=== PATIENT | male | born 1950 | race Caucasian/White ===

== ENCOUNTER 2017-05-01 17:30 | Inpatient (IN) | payer MEDICARE, MEDICAID ==
[~2017-05-01] VITALS: Ht 185.4 cm; Wt 117.9 kg
[2017-05-01 17:43] VITALS: BP 115/71
[2017-05-01] MEDS ORDERED: CHANTIX1 MG PO (17:49)
[2017-05-01] MEDS ORDERED: DUONEB 0.5-3(2.53 ML HHN (17:49)
[2017-05-01] MEDS ORDERED: IBUPROFEN600 MG ORAL (17:49)
[2017-05-01] MEDS ORDERED: Sodium Chloride 500ML 500 ML IV ONE (17:58)
[2017-05-01] MEDS ORDERED: Ipratropium 0.02% Inh Soln 2.5ml UD HHN ONE (18:00)
[2017-05-01] MEDS ORDERED: Solu-MEDROL 125mg Inj IVP ONE (18:00)
[2017-05-01] MEDS ORDERED: Albuterol ud Inhalation HHN ONE (18:00)
[2017-05-01 18:10] LABS: APPEARANCE,URINE CLEAR; KETONES,URINE NEGATIVE (NEGATIVE); LEUKOCYTE ESTERASE ,URINE NEGATIVE (NEGATIVE); NITRITE,URINE NEGATIVE (NEGATIVE); PH,URINE 7 (4.5-8.0); PROTEIN,URINE 2+ (NEGATIVE); UROBILINOGEN,URINE NORMAL MG/DL (0.0-1.0)
[2017-05-01 18:35] LABS: BASOPHILS % (AUTO) 0.7 % (0.0-2.0); EOSINOPHILS % (AUTO) 1.5 % (0.0-3.0); LYMPHOCYTES % (AUTO) 13.9 % (20.0-45.0); MEAN CORPUSCULAR HEMOGLOBIN 33.1 PG (27.0-31.0); MEAN CORPUSCULAR HGB CONC 32.9 G/DL (32.0-36.0); MEAN CORPUSCULAR VOLUME 101 FL (80-99); MONOCYTES % (AUTO) 7.9 % (1.0-10.0); PLATELET COUNT 200 K/UL (150-450); RED BLOOD COUNT 4.73 M/UL (4.70-6.10); WHITE BLOOD COUNT 9.4 K/UL (4.8-10.8)
[2017-05-01 18:40] LABS: ANION GAP 4 mmol/L (5-15); CARBON DIOXIDE 30 MMOL/L (21-32); CHLORIDE 106 MMOL/L (98-107); GLOMERULAR FILTRATION RATE > 60 mL/min (>60); POTASSIUM 4.3 MMOL/L (3.5-5.1); SODIUM 140 MMOL/L (136-145)
[2017-05-01 18:42] LABS: BACTERIA,URINE FEW /HPF; WBC,URINE 0-2 /HPF (0 - 0)
[2017-05-01 18:51] LABS: ALANINE AMINOTRANSFERASE 100 U/L (12-78); ASPARTATE AMINO TRANSFERASE 41 U/L (15-37); CKMB 8.5 NG/ML (0.0-3.6); TOTAL PROTEIN 6.7 G/DL (6.4-8.2)
[2017-05-01] MEDS ORDERED: Piperacillin/Tazobactam 3.375 GM in NS 55 ML IVPB ONE (19:30)
[2017-05-01] MEDS ORDERED: Azithromycin 500 MG in D5W 275 ML IVPB ONE (19:30)
--- NOTE | 2017-05-01 19:51 | Emergency Room Report ---
History of Present Illness General Chief Complaint: General Complaint Source: EMS Present Illness HPI 66-year-old male presents to ED for evaluation. Patient coming from halfway. EMS states that patient is here with increased generalized weakness. Patient states he's been feeling weak but is also complaining of shortness of breath for the last several days. Has history of COPD. Has been noticing increased cough. Cough is dry. Denies chest pain shortness of breath. Denies fevers or chills. No other aggravating relieving factors. Denies any other associated symptoms Allergies: Coded Allergies: Cultivated Oat Pollen (Verified Allergy, Unknown, 05/01/17) IODINE AND IODIDE CONTAINING PRODUC (Verified Allergy, Unknown, 05/01/17) Soy Protein (Verified Allergy, Unknown, 05/01/17) Patient History Past Medical History: HTN, CHF, COPD Pertinent Family History: none Social History: Denies: smoking, alcohol use, drug use Immunizations: UTD Reviewed Nursing Documentation: PMH: Agreed, PSxH: Agreed Nursing Documentation-PMH Hx Cardiac Problems: Yes - CHF Hx Hypertension: Yes Hx COPD: Yes Hx Neurological Problems: Yes - Tremors Review of Systems All Other Systems: negative except mentioned in HPI Physical Exam Vital Signs Date Time Temp Pulse Resp B/P (MAP) Pulse Ox O2 Delivery O2 Flow Rate FiO2 05/01/17 17:33 98.1 100 20 132/90 94 Room Air 05/01/17 18:30 21 Sp02 EP Interpretation: reviewed, normal General Appearance: no apparent distress, alert, GCS 15, non-toxic Head: normocephalic, atraumatic Eyes: bilateral eye normal inspection, bilateral eye PERRL ENT: hearing grossly normal, normal pharynx, no angioedema, normal voice Neck: full range of motion, supple/symm/no masses Respiratory: chest non-tender, normal breath sounds, speaking full sentences, wheezing Cardiovascular #1: regular rate, rhythm, no edema Cardiovascular #2: 2+ carotid (R), 2+ carotid (L), 2+ radial (R), 2+ radial (L) , 2+ dorsalis pedis (R), 2+ dorsalis pedis (L) Gastrointestinal: normal bowel sounds, non tender, soft, non-distended, no guarding, no rebound Rectal: deferred Genitourinary: normal inspection, no CVA tenderness Musculoskeletal: back normal, gait/station normal, normal range of motion, non- tender Neurologic: alert, oriented x3, responsive, motor strength/tone normal, sensory intact, speech normal Psychiatric: judgement/insight normal, memory normal, mood/affect normal, no suicidal/homicidal ideation Reflexes: 3+ bicep (R), 3+ bicep (L), 3+ tricep (R), 3+ tricep (L), 3+ knee (R) , 3+ knee (L) Skin: normal color, no rash, warm/dry, well hydrated Lymphatic: no adenopathy Medical Decision Making Diagnostic Impression: Primary Impression: COPD (chronic obstructive pulmonary disease) Qualified Codes: J44.9 - Chronic obstructive pulmonary disease, unspecified Additional Impression: CHF (congestive heart failure) Qualified Codes: I50.9 - Heart failure, unspecified ER Course Hospital Course 66-year-old M presenting to ED with SOB. h/o COPD Differential diagnoses include: Pneumonia, CHF exacerbation, pneumothorax, fluid overload Clinical course Patient placed on stretcher. On playground monitor with stable vitals. After initial history and physical, I ordered nebulizer treatments. I ordered labs, IV fluids, EKG, chest x-ray, blood cultures, UA. Labs - no leukocytosis noted, hemoglobin/hematocrit stable, electrolytes okay, lactate okay, troponins negative, BNP elevated EKG - NSR, no acute ischemic changes interpreted by me CXR - cardiomegaly. bilateral effusions abx given Case discussed with Dr. Norwood and he agreed to the patient to his service for further care and support I feel this is a highly complex case requiring extensive working including EKG/ Rhythm strip, Xray/CT/US, Blood/urine lab work, repeat exams while in ED, and administration of strong opiates/narcotics for pain control, admission to hospital or close patient follow up. Diagnosis - COPD exacerbation, CHF Patient admitted to telemetry in serious condition Labs Test 05/01/17 18:01 05/01/17 18:05 Urine Color Pale yellow Urine Appearance Clear Urine pH 7 (4.5-8.0) Urine Specific [place] 1.010 (1.005-1.035) Urine Protein 2+ (NEGATIVE) Urine Glucose (UA) Negative (NEGATIVE) Urine Ketones Negative (NEGATIVE) Urine Occult Blood 3+ (NEGATIVE) Urine Nitrite Negative (NEGATIVE) Urine Bilirubin Negative (NEGATIVE) Urine Urobilinogen Normal MG/DL (0.0-1.0) Urine Leukocyte Esterase Negative (NEGATIVE) Urine RBC 2-4 /HPF (0 - 0) Urine WBC 0-2 /HPF (0 - 0) Urine Squamous Epithelial Cells None /LPF (NONE/OCC) Urine Bacteria Few /HPF (NONE) White Blood Count 9.4 K/UL (4.8-10.8) Red Blood Count 4.73 M/UL (4.70-6.10) Hemoglobin 15.7 G/DL (14.2-18.0) Hematocrit 47.6 % (42.0-52.0) Mean Corpuscular Volume 101 FL (80-99) Mean Corpuscular Hemoglobin 33.1 PG (27.0-31.0) Mean Corpuscular Hemoglobin Concent 32.9 G/DL (32.0-36.0) Red Cell Distribution Width 12.0 % (11.6-14.8) Platelet Count 200 K/UL (150-450) Mean Platelet Volume 8.0 FL (6.5-10.1) Neutrophils (%) (Auto) 76.0 % (45.0-75.0) Lymphocytes (%) (Auto) 13.9 % (20.0-45.0) Monocytes (%) (Auto) 7.9 % (1.0-10.0) Eosinophils (%) (Auto) 1.5 % (0.0-3.0) Basophils (%) (Auto) 0.7 % (0.0-2.0) Sodium Level 140 MMOL/L (136-145) Potassium Level 4.3 MMOL/L (3.5-5.1) Chloride Level 106 MMOL/L (98-107) Carbon Dioxide Level 30 MMOL/L (21-32) Anion Gap 4 mmol/L (5-15) Blood Urea Nitrogen 16 mg/dL (7-18) Creatinine 1.0 MG/DL (0.55-1.30) Estimat Glomerular Filtration Rate > 60 mL/min (>60) Glucose Level 94 MG/DL (74-106) Calcium Level 9.0 MG/DL (8.5-10.1) Total Bilirubin 0.7 MG/DL (0.2-1.0) Aspartate Amino Transf (AST/SGOT) 41 U/L (15-37) Alanine Aminotransferase (ALT/SGPT) 100 U/L (12-78) Alkaline Phosphatase 84 U/L (46-116) Total Creatine Kinase 184 U/L (26-308) Creatine Kinase MB 8.5 NG/ML (0.0-3.6) Creatine Kinase MB Relative Index 4.6 Troponin I 0.013 ng/mL (0.000-0.056) Pro-B-Type Natriuretic Peptide 1188 pg/mL (0-125) Total Protein 6.7 G/DL (6.4-8.2) Albumin 3.3 G/DL (3.4-5.0) Globulin 3.4 g/dL Albumin/Globulin Ratio 1.0 (1.0-2.7) EKG Diagnostic Results Rate: normal Rhythm: NSR ST Segments: no acute changes ASA given to the pt in ED: No Rhythm Strip Diag. Results EP Interpretation: yes Rhythm: NSR, no PVC's, no ectopy Chest X-Ray Diagnostic Results Chest X-Ray Diagnostic Results : Chest X-Ray Ordered: Yes # of Views/Limited/Complete: 1 View Indication: Shortness of Breath EP Interpretation: Yes Interpretation: no pneumothorax, no acute cardiopulmonary disease, other - bilateral effusion. atelectasis Impression: Other - chf Electronically Signed by: Electronically signed by Volodymyr Weir MD Last Vital Signs Date Time Temp Pulse Resp B/P (MAP) Pulse Ox O2 Delivery O2 Flow Rate FiO2 05/01/17 18:30 110 18 98 Room Air 21 05/01/17 17:43 97.6 115/71 Status: improved Disposition: ADMITTED INPATIENT Condition: Serious Referrals: KELTON NORWOOD (PCP) VOLODYMYR WEIR M.D. May 01, 2017 19:51
[2017-05-01 21:02] VITALS: BP 107/76
[2017-05-01] MEDS ORDERED: Zosyn 3.375gm inj ONE (21:19)
[2017-05-01] MEDS ORDERED: Azithromycin 500mg Inj IV ONE (21:43)
[2017-05-01 22:00] VITALS: BP 103/75
[2017-05-02] MEDS: Cefepime HCl 1 GM in D5W 55 ML IVPB SCH ×2 (08:04→20:53)
[2017-05-02 08:19] VITALS: BP 111/70
[2017-05-02 11:21] VITALS: BP 104/69
[2017-05-02 15:37] VITALS: BP_SYST 108; BP_SYST 112; BP_DIAS 62; BP_DIAS 65
[2017-05-02 20:00] VITALS: BP 99/72
[2017-05-02] MEDS: Azithromycin 500 MG in D5W 275 ML IV SCH (20:52)
--- NOTE | 2017-05-02 22:18 | History and Physical ---
History of Present Illness General Date patient seen: May 02, 2017 Reason for Hospitalization: General Complaint Present Illness HPI 66 y/o male with hx HTN, COPD, CHF who presented to the ED from SNF for SOB x 3- 4 days. Also reports generalized weakness. Associated symptoms is nonproductive cough. Denies any fever or chills. No abdominal pain, nausea, or vomiting. In the ED, patient had no fever or leukocytosis. However, given his clinical presentation, he was admitted for further care. Allergies: Coded Allergies: ASPIRIN (Verified Allergy, Unknown, 05/02/17) Cultivated Oat Pollen (Verified Allergy, Unknown, 05/01/17) IODINE AND IODIDE CONTAINING PRODUC (Verified Allergy, Unknown, 05/01/17) PENICILLINS (Verified Allergy, Unknown, 05/02/17) Soy Protein (Verified Allergy, Unknown, 05/01/17) Medication History Scheduled Ipratropium/Albuterol Sulfate (DuoNeb 0.5-3(2.5)mg/3ml), 3 ML HHN BID, (Reported ) Scheduled PRN Ibuprofen* (Motrin*), 600 MG ORAL Q12HR PRN for For Pain, (Reported) Discontinued Medications Varenicline Tartrate (Chantix), 1 MG PO BID, (Reported) Discontinued Reason: Pt stopped taking med Patient History History Provided By: Patient Healthcare decision maker Resuscitation status Full Code Advanced Directive on File Past Medical/Surgical History Past Medical/Surgical History: (1) COPD (chronic obstructive pulmonary disease) (2) CHF (congestive heart failure) Review of Systems All Other Systems: negative except mentioned in HPI Physical Exam General Appearance: WD/WN, no apparent distress HEENT: normocephalic, atraumatic Neck: supple Respiratory/Chest: decreased breath sounds Cardiovascular/Chest: normal rate, regular rhythm Abdomen: non tender, soft Extremities: trace edema Neurologic: alert, oriented x 3 Last 24 Hour Vital Signs Date Time Temp Pulse Resp B/P (MAP) Pulse Ox O2 Delivery O2 Flow Rate FiO2 05/02/17 20:00 97.9 91 21 99/72 95 Room Air 05/02/17 16:00 95 05/02/17 15:37 97.6 97 20 108/65 97 Room Air 05/02/17 11:39 94 05/02/17 11:21 97.9 98 20 104/69 96 05/02/17 08:19 97.7 103 20 111/70 95 05/02/17 07:55 100 05/02/17 04:00 89 05/02/17 02:14 97.0 24 103/75 100 Room Air 21 Intake and Output 05/02/17 05/03/17 19:00 07:00 Intake Total 1030 ml Output Total 550 ml Balance 480 ml Intake Oral 920 ml IV Total 110 ml Output Urine Total 550 ml # Voids 1 Height (Feet): 6 Height (Inches): 1.00 Weight (Pounds): 260 Medications Current Medications Medications (Trade) Dose Ordered Sig/Shine Route PRN Reason Start Time Stop Time Status Last Admin Dose Admin Azithromycin 500 mg/Dextrose 275 ml @ 275 mls/hr Q24HRS IV 05/02/17 21:00 05/07/17 21:59 05/02/17 20:52 Cefepime HCl 1 gm/ Dextrose 55 ml @ 110 mls/hr EVERY 12 HOURS IVPB 05/02/17 09:00 05/09/17 08:59 05/02/17 20:53 Assessment/Plan Problem List: (1) HTN (hypertension) ICD Codes: I10 - Essential (primary) hypertension SNOMED: 84288463 (2) COPD (chronic obstructive pulmonary disease) ICD Codes: J44.9 - Chronic obstructive pulmonary disease, unspecified SNOMED: 09893357 Qualifiers: Qualified Codes: J44.9 - Chronic obstructive pulmonary disease, unspecified (3) CHF (congestive heart failure) ICD Codes: I50.9 - Heart failure, unspecified SNOMED: 26605453 Qualifiers: Qualified Codes: I50.9 - Heart failure, unspecified Assessment/Plan empiric abx. neb tx. steroids. lasix. resume home meds. dvt ppx. KELTON NORWOOD May 02, 2017 22:18
[2017-05-02] MEDS ORDERED: Albuterol/Ipratropium 3ml neb HHN PRN (22:30)
[2017-05-03] VITALS (8 sets, daily range): BP systolic 93–118; BP diastolic 46–78
[2017-05-03 09:01] LABS: EOSINOPHILS % (AUTO) 2.7 % (0.0-3.0); LYMPHOCYTES % (AUTO) 20.2 % (20.0-45.0); MEAN CORPUSCULAR HGB CONC 31.3 G/DL (32.0-36.0); MEAN CORPUSCULAR VOLUME 102 FL (80-99); MEAN PLATELET VOLUME 8.5 FL (6.5-10.1); MONOCYTES % (AUTO) 7.8 % (1.0-10.0); NEUTROPHILS % (AUTO) 68.2 % (45.0-75.0); PLATELET COUNT 168 K/UL (150-450); RED BLOOD COUNT 4.45 M/UL (4.70-6.10); WHITE BLOOD COUNT 8.1 K/UL (4.8-10.8)
[2017-05-03 09:27] LABS: ANION GAP 9 mmol/L (5-15); CALCIUM 8.5 MG/DL (8.5-10.1); CARBON DIOXIDE 25 MMOL/L (21-32); CHLORIDE 107 MMOL/L (98-107); GLOMERULAR FILTRATION RATE > 60 mL/min (>60); POTASSIUM 3.8 MMOL/L (3.5-5.1); SODIUM 141 MMOL/L (136-145)
[2017-05-03] MEDS: Cefepime HCl 1 GM in D5W 55 ML IVPB SCH ×2 (09:43→20:35)
[2017-05-03] MEDS ORDERED: Tubing IV Secondary IV ONE (10:56)
[2017-05-03] MEDS ORDERED: NS 500ML ONE (10:56)
--- NOTE | 2017-05-03 12:16 | Nephrology Progress Note ---
Assessment/Plan Problem List: (1) COPD (chronic obstructive pulmonary disease) (2) CHF (congestive heart failure) (3) HTN (hypertension) Plan Continue current treatment plan Continue floridalma treatmant BP stable Cardiac consult pending AM labs Subjective Constitutional: Denies: no symptoms, chills, diaphoresis, fever, malaise, weakness, other HEENT: Denies: no symptoms, eye pain, blurred vision, tearing, double vision, ear pain, ear discharge, nose pain, nose congestion, throat pain, throat swelling, mouth pain, mouth swelling, other Genitourinary: Denies: no symptoms, burning, discharge, frequency, flank pain, hematuria, incontinence, pain, urgency, other Neurologic/Psychiatric: Denies: no symptoms, anxiety, depressed, emotional problems, headache, numbness, paresthesia, pre-existing deficit, seizure, tingling, tremors, weakness, other Subjective Having lunch, upset because he wanted tea in his lunch tray but got coffee, but states that everything else is fine Objective Objective Last 24 Hour Vital Signs Date Time Temp Pulse Resp B/P (MAP) Pulse Ox O2 Delivery O2 Flow Rate FiO2 05/03/17 11:47 97.5 85 18 93/50 95 05/03/17 08:39 97.2 97 18 103/76 96 05/03/17 08:00 96 05/03/17 07:44 102 18 Room Air 21 05/03/17 04:30 74 18 118/78 93 Room Air 05/03/17 04:00 97.0 88 20 100/46 93 Room Air 05/03/17 04:00 94 05/03/17 00:00 101 05/03/17 00:00 97.2 101 20 95/70 95 Room Air 05/02/17 20:00 101 05/02/17 20:00 97.9 91 21 99/72 95 Room Air 05/02/17 16:00 95 05/02/17 15:37 97.6 97 20 108/65 97 Room Air Intake and Output 05/03/17 05/04/17 19:00 07:00 Intake Total 120 ml Balance 120 ml Intake Oral 120 ml Laboratory Tests 05/03/17 08:30: White Blood Count 8.1, Red Blood Count 4.45L, Hemoglobin 14.2, Hematocrit 45.5, Mean Corpuscular Volume 102H, Mean Corpuscular Hemoglobin 32.0H, Mean Corpuscular Hemoglobin Concent 31.3L, Red Cell Distribution Width 12.0, Platelet Count 168, Mean Platelet Volume 8.5, Neutrophils (%) (Auto) 68.2, Lymphocytes (%) (Auto) 20.2, Monocytes (%) (Auto) 7.8, Eosinophils (%) (Auto) 2.7, Basophils (%) (Auto) 1.0, Sodium Level 141, Potassium Level 3.8, Chloride Level 107, Carbon Dioxide Level 25, Anion Gap 9, Blood Urea Nitrogen 17, Creatinine 1.0, Estimat Glomerular Filtration Rate > 60, Glucose Level 120H, Calcium Level 8.5, Pro-B-Type Natriuretic Peptide 661H Height (Feet): 6 Height (Inches): 1.00 Weight (Pounds): 260 General Appearance: no apparent distress, alert EENT: normal ENT inspection Neck: normal alignment, supple Cardiovascular: normal rate, regular rhythm, no JVD Abdomen: non tender, soft, no organomegaly Extremities: non-tender, normal inspection Neurologic: alert, oriented x 3, responsive Lexus Lopez N.P. May 03, 2017 12:15
--- NOTE | 2017-05-03 14:24 | Cardiac Electrophysiology PN ---
Subjective Subjective Cardiology consult dicatted [id number] Objective Last 24 Hour Vital Signs Date Time Temp Pulse Resp B/P (MAP) Pulse Ox O2 Delivery O2 Flow Rate FiO2 05/03/17 11:47 97.5 85 18 93/50 95 05/03/17 08:39 97.2 97 18 103/76 96 05/03/17 08:00 96 05/03/17 07:44 102 18 Room Air 21 05/03/17 04:30 74 18 118/78 93 Room Air 05/03/17 04:00 97.0 88 20 100/46 93 Room Air 05/03/17 04:00 94 05/03/17 00:00 101 05/03/17 00:00 97.2 101 20 95/70 95 Room Air 05/02/17 20:00 101 05/02/17 20:00 97.9 91 21 99/72 95 Room Air 05/02/17 16:00 95 05/02/17 15:37 97.6 97 20 108/65 97 Room Air Intake and Output 05/03/17 05/04/17 19:00 07:00 Intake Total 120 ml Balance 120 ml Intake Oral 120 ml Laboratory Tests Test 05/03/17 08:30 White Blood Count 8.1 K/UL (4.8-10.8) Red Blood Count 4.45 M/UL (4.70-6.10) L Hemoglobin 14.2 G/DL (14.2-18.0) Hematocrit 45.5 % (42.0-52.0) Mean Corpuscular Volume 102 FL (80-99) H Mean Corpuscular Hemoglobin 32.0 PG (27.0-31.0) H Mean Corpuscular Hemoglobin Concent 31.3 G/DL (32.0-36.0) L Red Cell Distribution Width 12.0 % (11.6-14.8) Platelet Count 168 K/UL (150-450) Mean Platelet Volume 8.5 FL (6.5-10.1) Neutrophils (%) (Auto) 68.2 % (45.0-75.0) Lymphocytes (%) (Auto) 20.2 % (20.0-45.0) Monocytes (%) (Auto) 7.8 % (1.0-10.0) Eosinophils (%) (Auto) 2.7 % (0.0-3.0) Basophils (%) (Auto) 1.0 % (0.0-2.0) Sodium Level 141 MMOL/L (136-145) Potassium Level 3.8 MMOL/L (3.5-5.1) Chloride Level 107 MMOL/L (98-107) Carbon Dioxide Level 25 MMOL/L (21-32) Anion Gap 9 mmol/L (5-15) Blood Urea Nitrogen 17 mg/dL (7-18) Creatinine 1.0 MG/DL (0.55-1.30) Estimat Glomerular Filtration Rate > 60 mL/min (>60) Glucose Level 120 MG/DL (74-106) H Calcium Level 8.5 MG/DL (8.5-10.1) Pro-B-Type Natriuretic Peptide 661 pg/mL (0-125) H Microbiology Date/Time Source Procedure Growth Status 05/01/17 18:20 Blood Blood Culture - Preliminary NO GROWTH AFTER 24 HOURS Resulted 05/01/17 18:05 Blood Blood Culture - Preliminary NO GROWTH AFTER 24 HOURS Resulted 05/01/17 18:45 Nasal Nares Influenza Types A,B Antigen (ARLET) - Final Complete 05/01/17 19:20 Rectum VRE Culture - Final NO VANCOMYCIN RESISTANT ENTEROCOCCUS ... Complete ASHOK ROSS May 03, 2017 14:24
[2017-05-03] MEDS: Azithromycin 500 MG in D5W 275 ML IV SCH (21:32)
--- NOTE | 2017-05-03 23:45 | Consultation ---
DATE OF CONSULTATION: 05/03/2017 CARDIOLOGY CONSULTATION REFERRING PHYSICIAN: Willian Heck M.D. REASON FOR CONSULTATION: Management of hypertension and congestive heart failure in a patient with complete left bundle-branch block. HISTORY OF PRESENT ILLNESS: The patient is a 66-year-old gentleman with history of hypertension, COPD, and CHF, who presents to the emergency room from [facility] for shortness of breath of three to four days duration. The patient also had generalized weakness and productive cough. The patient denies any fever or chills or any prior myocardial infarction. The patient was admitted and a Cardiology consultation was obtained for further evaluation and management. PAST MEDICAL HISTORY: As mentioned above. MEDICATIONS: Per reconciliation. ALLERGIES: He is allergic to aspirin, iodine, shellfish, and penicillin. SOCIAL HISTORY: He lives in a senior living. Does not smoke or drink alcohol. FAMILY HISTORY: Noncontributory. REVIEW OF SYSTEMS: Negative other than what was mentioned in the history of present illness. PHYSICAL EXAMINATION: VITAL SIGNS: Blood pressure is 102/76, pulse 97, respirations 18, and temperature 97.2 degrees. HEAD AND NECK: Show positive JVD. LUNGS: Coarse rhonchi with diffuse wheezes. CARDIOVASCULAR: Shows regular S1 and S2 with no gallop. ABDOMEN: Soft. EXTREMITIES: A 1+ pitting edema. LABORATORY AND DIAGNOSTIC DATA: Show white count of 8.1, hemoglobin of 14.2, hematocrit of 45.5, and platelet count 168,000. Sodium 141, potassium 3.8, BUN of 17, creatinine 1, and glucose of 120. Troponin is negative. BNP was 1188. ASSESSMENT AND PLAN: 1. Congestive heart failure with BNP of more than 1100. Start the patient on Lasix 40 mg IV daily. We will get an echocardiogram for ejection fraction and wall motion abnormality. 2. Complete left bundle-branch block with atrioventricular alberta blockers. The patient denies any syncope. Echocardiogram is pending. 3. Chronic obstructive pulmonary disease and pneumonia, on albuterol, cefepime, and azithromycin under management of Dr. Heck. Thank you very much, Dr. Heck, for allowing me to participate in the care of this patient. Please do not hesitate to contact me for any questions regarding my evaluation. Poncho Brower M.D. DR: Genesis JOB#: [id number] CC:
[2017-05-04 00:23] VITALS: BP 110/68
[2017-05-04 04:17] VITALS: BP 107/80
[2017-05-04 08:00] VITALS: BP_SYST 107; BP_SYST 110; BP_DIAS 80
[2017-05-04] MEDS: Cefepime HCl 1 GM in D5W 55 ML IVPB SCH (08:08)
[2017-05-04 08:45] LABS: CHOLESTEROL 141 MG/DL (< 200); CHOLESTEROL/HDL RATIO 2.8 (3.3-4.4); THYROID STIMULATING HORMONE 3.878 uiU/mL (0.358-3.740)
--- NOTE | 2017-05-04 10:55 | Cardiac Electrophysiology PN ---
Assessment/Plan Assessment/Plan 1. Congestive heart failure with BNP of more than 1100. On Lasix 40 mg IV daily. Echocardiogram EF 50% 2. Complete left bundle-branch block Off any atrioventricular alberta blockers. The patient denies any syncope. 3. Chronic obstructive pulmonary disease and pneumonia, on albuterol, cefepime, and azithromycin under management of Dr. Heck. ABDULKADIR RN Subjective Subjective Feeling better. Less SOB. Expecting DC back to [facility] today. Objective Last 24 Hour Vital Signs Date Time Temp Pulse Resp B/P (MAP) Pulse Ox O2 Delivery O2 Flow Rate FiO2 05/04/17 08:00 97.9 87 18 110/80 99 Room Air 05/04/17 08:00 97 05/04/17 07:11 92 18 Room Air 21 05/04/17 04:17 98.1 84 20 107/80 98 Room Air 05/04/17 04:00 77 05/04/17 00:23 97.5 84 18 110/68 94 Room Air 05/04/17 00:00 97 05/03/17 22:01 97 18 Room Air 21 05/03/17 20:27 96.4 97 18 106/76 96 Room Air 05/03/17 20:00 93 05/03/17 16:30 98.4 94 20 102/74 96 Room Air 05/03/17 16:00 93 05/03/17 15:51 98.2 88 18 100/66 95 05/03/17 12:00 92 05/03/17 11:47 97.5 85 18 93/50 95 Laboratory Tests Test 05/04/17 08:05 Troponin I 0.008 ng/mL (0.000-0.056) Pro-B-Type Natriuretic Peptide 603 pg/mL (0-125) H Triglycerides Level 80 MG/DL (30-150) Cholesterol Level 141 MG/DL (< 200) LDL Cholesterol 82 mg/dL (<100) HDL Cholesterol 50 MG/DL (40-60) Cholesterol/HDL Ratio 2.8 (3.3-4.4) L Thyroid Stimulating Hormone (TSH) 3.878 uiU/mL (0.358-3.740) Free Thyroxine 0.92 NG/DL (0.76-1.46) Microbiology Date/Time Source Procedure Growth Status 05/01/17 18:20 Blood Blood Culture - Preliminary NO GROWTH AFTER 48 HOURS Resulted 05/01/17 18:05 Blood Blood Culture - Preliminary NO GROWTH AFTER 48 HOURS Resulted 05/01/17 19:20 Nasal Nares MRSA Culture - Final NO METHICILLIN RESISTANT STAPH AUREUS... Complete 05/01/17 18:45 Nasal Nares Influenza Types A,B Antigen (ARLET) - Final Complete 05/01/17 19:20 Rectum VRE Culture - Final NO VANCOMYCIN RESISTANT ENTEROCOCCUS ... Complete Objective HEAD AND NECK: Show positive JVD. LUNGS: Coarse rhonchi with diffuse wheezes. CARDIOVASCULAR: Shows regular S1 and S2 with no gallop. ABDOMEN: Soft. EXTREMITIES: A 1+ pitting edema. ASHOK ROSS May 04, 2017 10:55
[2017-05-04 12:00] VITALS: BP 100/73
--- NOTE | 2017-05-04 15:54 | Cardiology Report ---
APPROVED REPORT EXAM: Two-dimensional and M-mode echocardiogram with Doppler and color Doppler. INDICATION Congestive Heart Failure M-Mode DIMENSIONS Left Atrium (MM)4.0 (1.6-4.0cm) Aortic Root3.2 (2.0-3.7cm) Aortic Cusp Exc.1.8 (1.5-2.0cm) Technically difficult study due to poor acoustical windows and body habitus. M-mode measurements of left ventricle not obtainable due to cardiac position (angle) Enlarged left ventricular chamber size, normal systolic function and wall motion to extent visualized. Left ventricular ejection fraction estimated to be 50%. Study quality precludes accurate assessment of regional wall motion. No left ventricular hypertrophy. No evidence of pericardial effusion. All other cardiac chamber sizes are within normal limits. Mild focal aortic valve sclerosis with adequate cusp excursion. Mildly thickened mitral valve leaflets with normal excursion. Mild mitral annulus and aortic root calcification. Pulmonic valve not well visualized. Normal tricuspid valve structure. IVC at normal size with physiologic collapse. A color flow and spectral Doppler study was performed and revealed: No aortic insufficiency. Mild to moderate mitral regurgitation. Trace tricuspid regurgitation. Tricuspid systolic velocities suggests peak right ventricular systolic pressure of 12 mmHg.
--- NOTE | 2017-05-05 12:52 | Discharge Summary ---
Discharge Summary Hospital Course Date of Admission May 01, 2017 at 18:43 Date of Discharge May 04, 2017 at 14:05 Admitting Diagnosis copd exacerbation HPI Brandon Barreto is a 66 year old male who was admitted on May 01, 2017 at 18:43 for Chronic Obstructive Pulmonary Disease Exacerbation Hospital Course [id number] Discharge Discharge Disposition Patient was discharged to SNF/Subacute Facility(03) Discharge Diagnoses: Alessandra Arce NP May 05, 2017 12:52
--- NOTE | 2017-05-05 22:45 | Discharge Summary 2 SIG ---
DATE OF ADMISSION: 05/01/2017 DATE OF DISCHARGE: 05/04/2017 BOND MANAGER: Poncho Brower M.D. BRIEF HOSPITAL COURSE: The patient is a 66-year-old male with history of hypertension, COPD, and CHF presented [facility] ED from [facility] for complaints of shortness of breath for three to four days and also reported generalized weakness. He was having non-productive cough, however denied any fever or chills. No abdominal pain, nausea or vomiting. On evaluation at ED, blood work showed no leukocytosis. Hemoglobin and hematocrit was stable. Electrolytes were okay. Troponin was negative, however, BNP was 1188. He had EKG done that showed normal sinus rhythm and chest x-ray showed bilateral effusion with atelectasis. He was then admitted to telemetry for CHF and COPD exacerbation. He was started on IV antibiotic, initially was given Zosyn and azithromycin and was eventually changed to Zithromax and cefepime. He was given nebulizer treatments and was started on Lasix 40 mg IV daily. He was followed by Dr. Rogers. Echocardiogram done showed ejection fraction of 50% with an enlarged left ventricular size, normal systolic function and wall motion to extent visualized. There was no aortic insufficiency, mild to moderate mitral regurgitation, and trace tricuspid regurgitation. He had complete left bundle-branch block and has been taken off any atrioventricular alberta blockers. The patient was denying any syncope. He was saturating well on room air. Blood cultures did not isolate any growth. Influenza screen was negative. He was eventually discharged home to follow up with PMD in a week. FINAL DIAGNOSES: 1. Acute chronic obstructive pulmonary disease exacerbation. 2. Acute diastolic congestive heart failure. 3. Hypertension. 4. Complete left bundle-branch block. 5. Pneumonia. DISPOSITION: The patient was discharged back to [facility]. DISCHARGE MEDICATIONS: Refer to medication list. Willian Heck M.D. I have been assigned to dictate discharge summary on this account and I was not involved in the patient's management. Alessandra Arce N.P. DR: AVERY JOB#: [id number] CC: ROCÍO
== END 2017-05-04 14:05 | DRG 291 ==
LOC: EDBD 17:30 → EMR 18:37 → 2E 18:43 → EDBEDREQ 19:10 → 2E 05-02 10:18
DX: I11.0 Hypertensive heart disease with heart failure (principal); J18.9 Pneumonia, unspecified organism; J44.0 Chronic obstructive pulmonary disease with (acute) lower respiratory infection; J44.1 Chronic obstructive pulmonary disease with (acute) exacerbation; I50.31 Acute diastolic (congestive) heart failure; I44.7 Left bundle-branch block, unspecified
CPT/HCPCS: 36415; 71010; 80048; 80053; 80061; 81003; 82550; 82553; 83880; 84439; 84443; 84484; 85025; 86710; 87040; 87081; 93005; 93306; 94640; 94664; 99285

== ENCOUNTER 2017-06-14 20:08 | Inpatient (IN) | payer MEDICARE, MEDICAID ==
[~2017-06-14] VITALS: Ht 185.4 cm; Wt 117.9 kg
[~2017-06-14 20:08] MED LIST: CHANTIX1 MG PO; DUONEB 0.5-3(2.53 ML HHN; IBUPROFEN600 MG ORAL
--- NOTE | 2017-06-14 20:37 | Emergency Room Report ---
History of Present Illness General Chief Complaint: Dyspnea/Respdistress Source: Patient Present Illness HPI 59-year-old male brought in by EMS for "trouble breathing". She endorses trouble breathing since Thanksgiving She was recently admitted to a hospital where they gave him "for shots of antibiotics for pneumonia". He states he left the ER because he had to leave and was not given any prescriptions. Not currently taking any medication. Was admitted here May 01 a for CHF and COPD exacerbation. Blood cultures were negative influenza was negative. He denies fever or chills or cough or chest pain. Denies abdominal pain, nausea vomiting. Of note patient was sitting on street outside ER and said to Nurse when he was coming to ER "Oh you work there, Im coming in." Patient noted to be "stuffing his face" by EMS. Allergies: Coded Allergies: Cultivated Oat Pollen (Verified Allergy, Unknown, 05/01/17) IODINE AND IODIDE CONTAINING PRODUC (Verified Allergy, Unknown, 05/01/17) PENICILLINS (Verified Allergy, Unknown, 05/02/17) Soy Protein (Verified Allergy, Unknown, 05/01/17) Patient History Past Medical History: CHF, COPD Past Surgical History: none Pertinent Family History: none Social History: Denies: smoking, alcohol use, drug use Immunizations: UTD Reviewed Nursing Documentation: PMH: Agreed, PSxH: Agreed Nursing Documentation-PMH Hx Cardiac Problems: Yes Hx Hypertension: Yes Hx Asthma: Yes - hx of Asthma Hx COPD: Yes Hx Cancer: No Hx Gastrointestinal Problems: No Hx Neurological Problems: Yes Hx Dementia: Yes Hx Tremors: Yes Review of Systems All Other Systems: negative except mentioned in HPI Physical Exam Vital Signs Date Time Temp Pulse Resp B/P (MAP) Pulse Ox O2 Delivery O2 Flow Rate FiO2 06/14/17 20:21 96.1 130 24 134/109 87 Room Air Sp02 EP Interpretation: reviewed, abnormal General Appearance: normal inspection, well appearing, no apparent distress, alert, GCS 15, non-toxic, obese, other - disheveled, malodorous Head: normocephalic, atraumatic Eyes: bilateral eye PERRL, bilateral eye EOMI ENT: normal ENT inspection, hearing grossly normal, normal pharynx, no angioedema, normal voice, TMs + canals normal, uvula midline, moist mucus membranes Neck: normal inspection, full range of motion, supple, thyroid normal, no meningismus, no bony tend Respiratory: normal inspection, no respiratory distress, no retraction, no accessory muscle use, no wheezing, decreased breath sounds, rhonchi, speaking full sentences, wheezing Cardiovascular #1: regular rate, rhythm, no edema, no JVD, normal capillary refill Gastrointestinal: normal inspection, normal bowel sounds, non tender, soft, no mass, no peritonitis, non-distended, no guarding, no hernia, no pulsatile mass Genitourinary: no CVA tenderness Musculoskeletal: normal inspection, back normal, normal range of motion, no calf tenderness, pelvis stable, Jackie's Sign negative Neurologic: normal inspection, alert, oriented x3, responsive, medical records secretary III-XII nml as tested, motor strength/tone normal, cerebellar normal, normal gait, speech normal Psychiatric: normal inspection, judgement/insight normal, mood/affect normal, no suicidal/homicidal ideation, no delusions Skin: normal inspection, normal color, no rash Lymphatic: normal inspection, no adenopathy Medical Decision Making Diagnostic Impression: Primary Impression: Dyspnea Qualified Codes: R06.00 - Dyspnea, unspecified Additional Impression: Pneumonia Qualified Codes: J18.9 - Pneumonia, unspecified organism ER Course 67-year-old male with shortness of breath Vital signs notable for hypoxia, 89% on room air Patient not using accessory muscles, is speaking full sentences, however does have some wheezing and crackles on exam labs: leukocytosis L>R bilateral PNA Empiric Abx given Lactate, Blood Cx pending Endorsed to Dr Rodríguez/NADJA Lozano at 915pm as previously admitting hospitalists EKG Diagnostic Results Rate: tachycardiac Rhythm: other - LBBB ST Segments: no acute changes Rhythm Strip Diag. Results EP Interpretation: yes Rate: 100 Rhythm: NSR, no PVC's, no ectopy Chest X-Ray Diagnostic Results Chest X-Ray Diagnostic Results : Chest X-Ray Ordered: Yes # of Views/Limited/Complete: 1 View Indication: Shortness of Breath EP Interpretation: Yes Interpretation: no pneumothorax, other - cardiomegaly, L>R PNA Electronically Signed by: Dr Preston Fitzgerald MD Last Vital Signs Date Time Temp Pulse Resp B/P (MAP) Pulse Ox O2 Delivery O2 Flow Rate FiO2 06/14/17 20:21 96.1 130 24 134/109 87 Room Air Status: improved Disposition: ADMITTED INPATIENT Condition: Serious PRESTON FITZGERALD M.D. Jun 14, 2017 20:37
[2017-06-14] MEDS ORDERED: Albuterol ud Inhalation HHN ONE (20:45)
[2017-06-14] MEDS ORDERED: Ipratropium 0.02% Inh Soln 2.5ml UD HHN ONE (20:45)
[2017-06-14 21:04] LABS: HEMATOCRIT 52.1 % (42.0-52.0); MEAN CORPUSCULAR VOLUME 100 FL (80-99); PLATELET COUNT 176 K/UL (150-450)
[2017-06-14 21:05] LABS: BASOPHILS % (AUTO) 0.6 % (0.0-2.0); LYMPHOCYTES % (AUTO) 5.6 % (20.0-45.0); MONOCYTES % (AUTO) 4.3 % (1.0-10.0); NEUTROPHILS % (AUTO) 89.5 % (45.0-75.0)
[2017-06-14] MEDS ORDERED: POTASSIUM99 M3 PO (21:13)
[2017-06-14] MEDS ORDERED: FUROSEMIDE20 M1 ORAL (21:13)
[2017-06-14] MEDS ORDERED: DEXAMETHASONE0.5 MG PO (21:13)
[2017-06-14 21:19] LABS: ANION GAP 11 mmol/L (5-15); BLOOD UREA NITROGEN 47 mg/dL (7-18); CALCIUM 9.8 MG/DL (8.5-10.1); CARBON DIOXIDE 25 MMOL/L (21-32); CHLORIDE 104 MMOL/L (98-107); CREATININE 1.1 MG/DL (0.55-1.30); POTASSIUM 4.7 MMOL/L (3.5-5.1); SODIUM 140 MMOL/L (136-145)
[2017-06-14 21:30] LABS: ALANINE AMINOTRANSFERASE 65 U/L (12-78); ALBUMIN 2.3 G/DL (3.4-5.0); ALBUMIN/GLOBULIN RATIO 0.5 (1.0-2.7); ALKALINE PHOSPHATASE 91 U/L (46-116); ASPARTATE AMINO TRANSFERASE 44 U/L (15-37); BILIRUBIN,TOTAL 1.4 MG/DL (0.2-1.0)
[2017-06-14 21:31] LABS: BILIRUBIN,DIRECT 0.5 MG/DL (0.0-0.3)
[2017-06-14 21:32] VITALS: BP 130/89
[2017-06-15] VITALS: BP 144/92
[2017-06-15] MEDS ORDERED: LORazepam 1mg tab ORAL PRN
[2017-06-15] MEDS ORDERED: Zolpidem 5mg tab ORAL PRN
[2017-06-15] MEDS ORDERED: Azithromycin 500mg Inj IV ONE (03:31)
[2017-06-15] MEDS: Azithromycin 500 MG in D5W 275 ML IV SCH (03:39)
[2017-06-15 04:00] VITALS: BP 132/94
[2017-06-15 08:00] VITALS: BP 109/81
[2017-06-15 09:14] LABS: HEMOGLOBIN 14.4 G/DL (14.2-18.0); MEAN CORPUSCULAR VOLUME 99 FL (80-99); PLATELET COUNT 172 K/UL (150-450); RED BLOOD COUNT 4.43 M/UL (4.70-6.10); RED CELL DISTRIBUTION WIDTH 13.1 % (11.6-14.8)
[2017-06-15] MEDS: Albuterol/Ipratropium 3ml neb HHN PRN ×2 (09:37→15:05)
[2017-06-15 10:08] LABS: ANION GAP 10 mmol/L (5-15); BLOOD UREA NITROGEN 37 mg/dL (7-18); CALCIUM 9.4 MG/DL (8.5-10.1); CARBON DIOXIDE 26 MMOL/L (21-32); CHLORIDE 104 MMOL/L (98-107); CREATININE 0.9 MG/DL (0.55-1.30); POTASSIUM 4.4 MMOL/L (3.5-5.1); SODIUM 140 MMOL/L (136-145)
--- NOTE | 2017-06-15 10:14 | History and Physical ---
ANGELICA MCGHEE 06/15/17 1014: History of Present Illness General Date patient seen: Jun 15, 2017 Reason for Hospitalization: Dyspnea/Respdistress Present Illness Allergies: Coded Allergies: Cultivated Oat Pollen (Verified Allergy, Unknown, 05/01/17) IODINE AND IODIDE CONTAINING PRODUC (Verified Allergy, Unknown, 05/01/17) PENICILLINS (Verified Allergy, Unknown, 05/02/17) Soy Protein (Verified Allergy, Unknown, 05/01/17) Medication History Scheduled Furosemide* (Lasix*), 20 MG ORAL DAILY, (Reported) Ipratropium/Albuterol Sulfate (DuoNeb 0.5-3(2.5)mg/3ml), 3 ML HHN BID, (Reported ) Scheduled PRN Ibuprofen* (Motrin*), 600 MG ORAL Q12HR PRN for For Pain, (Reported) Miscellaneous Medications Dexamethasone (Dexamethasone), 0.5 MG PO, (Reported) Potassium Gluconate (Potassium), 99 MG PO, (Reported) Patient History Healthcare decision maker Resuscitation status Full Code Advanced Directive on File No Physical Exam Last 24 Hour Vital Signs Date Time Temp Pulse Resp B/P (MAP) Pulse Ox O2 Delivery O2 Flow Rate FiO2 06/15/17 09:41 125 21 Nasal Cannula 2.0 28 06/15/17 09:37 125 20 98 Nasal Cannula 2.0 28 06/15/17 04:00 97.0 125 20 132/94 97 06/15/17 04:00 120 06/15/17 00:00 97.0 123 24 144/92 95 06/14/17 23:32 96.1 125 24 130/89 91 Nasal Cannula 2.0 28 06/14/17 21:32 121 21 Nasal Cannula 2.0 28 06/14/17 21:32 96.1 125 24 130/89 91 Nasal Cannula 2.0 28 06/14/17 20:57 121 21 97 Nasal Cannula 2.0 28 06/14/17 20:42 121 22 89 Room Air 06/14/17 20:39 120 22 Room Air 06/14/17 20:21 96.1 130 24 134/109 87 Room Air Intake and Output 06/14/17 06/15/17 19:00 07:00 Intake Total 120 ml Output Total 0 ml Balance 120 ml Intake Oral 120 ml Output Urine Total 0 ml # Voids 1 Laboratory Tests Test 06/14/17 20:50 06/14/17 20:55 06/14/17 22:30 06/15/17 08:50 White Blood Count 12.0 K/UL (4.8-10.8) H 11.0 K/UL (4.8-10.8) H Red Blood Count 5.20 M/UL (4.70-6.10) 4.43 M/UL (4.70-6.10) L Hemoglobin 16.0 G/DL (14.2-18.0) 14.4 G/DL (14.2-18.0) Hematocrit 52.1 % (42.0-52.0) H 44.0 % (42.0-52.0) Mean Corpuscular Volume 100 FL (80-99) H 99 FL (80-99) Mean Corpuscular Hemoglobin 30.8 PG (27.0-31.0) 32.6 PG (27.0-31.0) H Mean Corpuscular Hemoglobin Concent 30.7 G/DL (32.0-36.0) L 32.9 G/DL (32.0-36.0) Red Cell Distribution Width 13.0 % (11.6-14.8) 13.1 % (11.6-14.8) Platelet Count 176 K/UL (150-450) 172 K/UL (150-450) Mean Platelet Volume 7.3 FL (6.5-10.1) 7.8 FL (6.5-10.1) Neutrophils (%) (Auto) 89.5 % (45.0-75.0) H % (45.0-75.0) Lymphocytes (%) (Auto) 5.6 % (20.0-45.0) L % (20.0-45.0) Monocytes (%) (Auto) 4.3 % (1.0-10.0) % (1.0-10.0) Eosinophils (%) (Auto) 0.0 % (0.0-3.0) % (0.0-3.0) Basophils (%) (Auto) 0.6 % (0.0-2.0) % (0.0-2.0) Sodium Level 140 MMOL/L (136-145) 140 MMOL/L (136-145) Potassium Level 4.7 MMOL/L (3.5-5.1) 4.4 MMOL/L (3.5-5.1) Chloride Level 104 MMOL/L (98-107) 104 MMOL/L (98-107) Carbon Dioxide Level 25 MMOL/L (21-32) 26 MMOL/L (21-32) Anion Gap 11 mmol/L (5-15) 10 mmol/L (5-15) Blood Urea Nitrogen 47 mg/dL (7-18) H 37 mg/dL (7-18) H Creatinine 1.1 MG/DL (0.55-1.30) 0.9 MG/DL (0.55-1.30) Estimat Glomerular Filtration Rate > 60 mL/min (>60) > 60 mL/min (>60) Glucose Level 140 MG/DL (74-106) H 178 MG/DL (74-106) H Calcium Level 9.8 MG/DL (8.5-10.1) 9.4 MG/DL (8.5-10.1) Total Bilirubin 1.4 MG/DL (0.2-1.0) H Direct Bilirubin 0.5 MG/DL (0.0-0.3) H Aspartate Amino Transf (AST/SGOT) 44 U/L (15-37) H Alanine Aminotransferase (ALT/SGPT) 65 U/L (12-78) Alkaline Phosphatase 91 U/L (46-116) Total Protein 6.7 G/DL (6.4-8.2) Albumin 2.3 G/DL (3.4-5.0) L Globulin 4.4 g/dL Albumin/Globulin Ratio 0.5 (1.0-2.7) L Lactic Acid Level 2.40 mmol/L (0.66-2.22) H 2.70 mmol/L (0.66-2.22) H Neutrophils % (Manual) Pending Lymphocytes % (Manual) Pending Platelet Estimate Pending Platelet Morphology Pending Height (Feet): 6 Height (Inches): 1.00 Weight (Pounds): 260 Medications Current Medications Medications (Trade) Dose Ordered Sig/Shine Route PRN Reason Start Time Stop Time Status Last Admin Dose Admin Acetaminophen (Tylenol) 650 mg Q4H PRN ORAL Mild Pain (Pain Scale 1-3) 06/15/17 00:00 07/15/17 00:00 Albuterol/ Ipratropium (Albuterol/ Ipratropium) 3 ml Q4HR PRN HHN Shortness of Breath 06/15/17 00:00 06/20/17 00:00 06/15/17 09:37 Azithromycin 500 mg/Dextrose 275 ml @ 275 mls/hr Q24H IV 06/15/17 01:00 06/22/17 00:59 06/15/17 03:39 Diphenhydramine HCl (Benadryl) 25 mg Q6H PRN ORAL Itching/Pruritis 06/15/17 00:00 07/15/17 00:00 Furosemide (Lasix) 20 mg DAILY ORAL 06/15/17 09:00 07/15/17 08:59 06/15/17 10:03 Levofloxacin 150 ml @ 100 mls/hr Q24H IVPB 06/15/17 21:30 06/22/17 21:29 Lorazepam (Ativan) 1 mg Q4H PRN ORAL For Anxiety 06/15/17 00:00 06/22/17 00:00 06/15/17 10:03 Ondansetron HCl (Zofran) 4 mg Q6H PRN IVP Nausea & Vomiting 06/15/17 00:00 07/15/17 00:00 Zolpidem Tartrate (Ambien) 5 mg HSPRN PRN ORAL Insomnia 06/15/17 00:00 06/22/17 00:00 KELTON NORWOOD 06/22/17 2340: History of Present Illness General Date patient seen: Jun 15, 2017 Reason for Hospitalization: Dyspnea/Respdistress Present Illness HPI This is a 59 y/o male with PMH for HTN, CHF, and COPD who presented to the ED by EMS c/o SOB x 2 months. Apparently he was recently at OSH ED where he was going to be admitted for pneumonia. However he left AMA and was not given any Rx 's. He was admitted at this facility for COPD and CHF exacerbation. He denies fever or chills. He denies any cough or chest pain. In the ED, CXR showed pulmonary edema vs. pneumonia. He was admitted for further care. Allergies: Coded Allergies: Cultivated Oat Pollen (Verified Allergy, Unknown, 05/01/17) IODINE AND IODIDE CONTAINING PRODUC (Verified Allergy, Unknown, 05/01/17) PENICILLINS (Verified Allergy, Unknown, 05/02/17) Soy Protein (Verified Allergy, Unknown, 05/01/17) Medication History Scheduled Furosemide* (Lasix*), 20 MG ORAL DAILY, (Reported) Ipratropium/Albuterol Sulfate (DuoNeb 0.5-3(2.5)mg/3ml), 3 ML HHN BID, (Reported ) Scheduled PRN Ibuprofen* (Motrin*), 600 MG ORAL Q12HR PRN for For Pain, (Reported) Miscellaneous Medications Dexamethasone (Dexamethasone), 0.5 MG PO, (Reported) Potassium Gluconate (Potassium), 99 MG PO, (Reported) Patient History History Provided By: Patient, Medical Record Past Medical/Surgical History Past Medical/Surgical History: (1) HTN (hypertension) (2) COPD (chronic obstructive pulmonary disease) Review of Systems All Other Systems: negative except mentioned in HPI Physical Exam General Appearance: WD/WN, agitated, obese Respiratory/Chest: decreased breath sounds Cardiovascular/Chest: normal rate, regular rhythm Abdomen: soft Extremities: moderate edema Neurologic: alert, oriented x 3, responsive Assessment/Plan Problem List: (1) COPD (chronic obstructive pulmonary disease) ICD Codes: J44.9 - Chronic obstructive pulmonary disease, unspecified SNOMED: 95816450 (2) Acute respiratory failure ICD Codes: J96.00 - Acute respiratory failure, unspecified whether with hypoxia or hypercapnia SNOMED: 45211100 (3) Sepsis ICD Codes: A41.9 - Sepsis, unspecified organism SNOMED: 13522419 (4) HTN (hypertension) ICD Codes: I10 - Essential (primary) hypertension SNOMED: 15536105 (5) Cellulitis and abscess of lower extremity ICD Codes: L03.119 - Cellulitis of unspecified part of limb; L02.419 - Cutaneous abscess of limb, unspecified SNOMED: 932889284 Assessment/Plan empiric abx per ID. ID consulted. Pulm and Cardio consulted. Pulm hygiene. NEB breathing tx. d/w Dr. Norwood. ANGELICA MCGHEE Jun 15, 2017 10:14 KELTON NORWOOD Jun 22, 2017 23:40
--- NOTE | 2017-06-15 10:45 | Diagnostic Imaging Report ---
Indication: Dyspnea Comparison: 05/01/2017 A single view chest radiograph was obtained. Findings: Development of patchy fairly extensive airspace disease bilaterally noted. The heart is enlarged. IMPRESSION: Patchy airspace disease. Suspect pulmonary edema although pneumonia is in the differential diagnosis. Please correlate clinically.
--- NOTE | 2017-06-15 12:38 | Cardiology Report ---
APPROVED REPORT EKG Measurement Heart [id number] [id number] Sinus tachycardia with fusion complexes Left axis deviation Left bundle branch block Abnormal ECG
--- NOTE | 2017-06-15 13:29 | Infectious Diseases Prog Note ---
Assessment/Plan Problems: (1) HCAP (healthcare-associated pneumonia) Assessment & Plan: with diffuse patchy infiltrates left worse, than right, will start vancomycin and cefepime empiric coverage, continue zithromax for atypical coverage , and screen for influenza . (2) Cellulitis and abscess of lower extremity Assessment & Plan: already on vancomycin and cefepime (3) Sepsis Assessment & Plan: due to the above, will start vancomycin and cefepime , pending blood culture (4) Acute respiratory failure Assessment & Plan: due to the above, continue oxygen and inhalers , monitor CXR (5) COPD (chronic obstructive pulmonary disease) Assessment & Plan: with exacerbation due to the above , continue nebulizers and oxygen therapy Subjective Allergies: Coded Allergies: Cultivated Oat Pollen (Verified Allergy, Unknown, 05/01/17) IODINE AND IODIDE CONTAINING PRODUC (Verified Allergy, Unknown, 05/01/17) PENICILLINS (Verified Allergy, Unknown, 05/02/17) Soy Protein (Verified Allergy, Unknown, 05/01/17) Objective Vital Signs Last 24 Hour Vital Signs Date Time Temp Pulse Resp B/P (MAP) Pulse Ox O2 Delivery O2 Flow Rate FiO2 06/15/17 09:41 125 21 Nasal Cannula 2.0 28 06/15/17 09:37 125 20 98 Nasal Cannula 2.0 28 06/15/17 08:00 96.9 100 18 109/81 100 Nasal Cannula 2.0 06/15/17 04:00 97.0 125 20 132/94 97 06/15/17 04:00 120 06/15/17 00:00 97.0 123 24 144/92 95 06/14/17 23:32 96.1 125 24 130/89 91 Nasal Cannula 2.0 28 06/14/17 21:32 121 21 Nasal Cannula 2.0 28 06/14/17 21:32 96.1 125 24 130/89 91 Nasal Cannula 2.0 28 06/14/17 20:57 121 21 97 Nasal Cannula 2.0 28 06/14/17 20:42 121 22 89 Room Air 06/14/17 20:39 120 22 Room Air 06/14/17 20:21 96.1 130 24 134/109 87 Room Air Height (Feet): 6 Height (Inches): 1.00 Weight (Pounds): 260 Laboratory Tests Test 06/14/17 20:50 06/14/17 20:55 1/17/18 22:30 06/15/17 08:50 White Blood Count 12.0 K/UL (4.8-10.8) H 11.0 K/UL (4.8-10.8) H Red Blood Count 5.20 M/UL (4.70-6.10) 4.43 M/UL (4.70-6.10) L Hemoglobin 16.0 G/DL (14.2-18.0) 14.4 G/DL (14.2-18.0) Hematocrit 52.1 % (42.0-52.0) H 44.0 % (42.0-52.0) Mean Corpuscular Volume 100 FL (80-99) H 99 FL (80-99) Mean Corpuscular Hemoglobin 30.8 PG (27.0-31.0) 32.6 PG (27.0-31.0) H Mean Corpuscular Hemoglobin Concent 30.7 G/DL (32.0-36.0) L 32.9 G/DL (32.0-36.0) Red Cell Distribution Width 13.0 % (11.6-14.8) 13.1 % (11.6-14.8) Platelet Count 176 K/UL (150-450) 172 K/UL (150-450) Mean Platelet Volume 7.3 FL (6.5-10.1) 7.8 FL (6.5-10.1) Neutrophils (%) (Auto) 89.5 % (45.0-75.0) H % (45.0-75.0) Lymphocytes (%) (Auto) 5.6 % (20.0-45.0) L % (20.0-45.0) Monocytes (%) (Auto) 4.3 % (1.0-10.0) % (1.0-10.0) Eosinophils (%) (Auto) 0.0 % (0.0-3.0) % (0.0-3.0) Basophils (%) (Auto) 0.6 % (0.0-2.0) % (0.0-2.0) Sodium Level 140 MMOL/L (136-145) 140 MMOL/L (136-145) Potassium Level 4.7 MMOL/L (3.5-5.1) 4.4 MMOL/L (3.5-5.1) Chloride Level 104 MMOL/L (98-107) 104 MMOL/L (98-107) Carbon Dioxide Level 25 MMOL/L (21-32) 26 MMOL/L (21-32) Anion Gap 11 mmol/L (5-15) 10 mmol/L (5-15) Blood Urea Nitrogen 47 mg/dL (7-18) H 37 mg/dL (7-18) H Creatinine 1.1 MG/DL (0.55-1.30) 0.9 MG/DL (0.55-1.30) Estimat Glomerular Filtration Rate > 60 mL/min (>60) > 60 mL/min (>60) Glucose Level 140 MG/DL (74-106) H 178 MG/DL (74-106) H Calcium Level 9.8 MG/DL (8.5-10.1) 9.4 MG/DL (8.5-10.1) Total Bilirubin 1.4 MG/DL (0.2-1.0) H Direct Bilirubin 0.5 MG/DL (0.0-0.3) H Aspartate Amino Transf (AST/SGOT) 44 U/L (15-37) H Alanine Aminotransferase (ALT/SGPT) 65 U/L (12-78) Alkaline Phosphatase 91 U/L (46-116) Total Protein 6.7 G/DL (6.4-8.2) Albumin 2.3 G/DL (3.4-5.0) L Globulin 4.4 g/dL Albumin/Globulin Ratio 0.5 (1.0-2.7) L Lactic Acid Level 2.40 mmol/L (0.66-2.22) H 2.70 mmol/L (0.66-2.22) H Differential Total Cells Counted 100 Neutrophils % (Manual) 92 % (45-75) H Lymphocytes % (Manual) 6 % (20-45) L Monocytes % (Manual) 2 % (1-10) Eosinophils % (Manual) 0 % (0-3) Basophils % (Manual) 0 % (0-2) Band Neutrophils 0 % (0-8) Platelet Estimate Adequate Platelet Morphology Normal Red Blood Cell Morphology Normal Current Medications Medications (Trade) Dose Ordered Sig/Shine Route PRN Reason Start Time Stop Time Status Last Admin Dose Admin Acetaminophen (Tylenol) 650 mg Q4H PRN ORAL Mild Pain (Pain Scale 1-3) 06/15/17 00:00 07/15/17 00:00 Albuterol/ Ipratropium (Albuterol/ Ipratropium) 3 ml Q4HR PRN HHN Shortness of Breath 06/15/17 00:00 06/20/17 00:00 06/15/17 09:37 Azithromycin 500 mg/Dextrose 275 ml @ 275 mls/hr Q24H IV 06/15/17 01:00 06/22/17 00:59 06/15/17 03:39 Diphenhydramine HCl (Benadryl) 25 mg Q6H PRN ORAL Itching/Pruritis 06/15/17 00:00 07/15/17 00:00 Furosemide (Lasix) 20 mg DAILY ORAL 06/15/17 09:00 07/15/17 08:59 06/15/17 10:03 Levofloxacin 150 ml @ 100 mls/hr Q24H IVPB 06/15/17 21:30 06/22/17 21:29 Lorazepam (Ativan) 1 mg Q4H PRN ORAL For Anxiety 06/15/17 00:00 06/22/17 00:00 06/15/17 10:03 Ondansetron HCl (Zofran) 4 mg Q6H PRN IVP Nausea & Vomiting 06/15/17 00:00 07/15/17 00:00 Zolpidem Tartrate (Ambien) 5 mg HSPRN PRN ORAL Insomnia 06/15/17 00:00 06/22/17 00:00 Gregg Mckenna M.D. Jun 15, 2017 13:28
[2017-06-15] MEDS ORDERED: Vancomycin 2gm/D5W 550ml IVPB ONE ×2 (15:00)
[2017-06-15 15:13] VITALS: BP 129/82
[2017-06-15] MEDS: Cefepime HCl 2 GM in D5W 55 ML IVPB SCH (15:59)
--- NOTE | 2017-06-15 16:54 | Cardiac Electrophysiology PN ---
Subjective Subjective [id number] Objective Last 24 Hour Vital Signs Date Time Temp Pulse Resp B/P (MAP) Pulse Ox O2 Delivery O2 Flow Rate FiO2 06/15/17 15:15 135 22 94 Nasal Cannula 2.0 28 06/15/17 15:13 97.5 122 18 129/82 100 06/15/17 15:05 134 28 98 Nasal Cannula 2.0 06/15/17 12:00 128 06/15/17 09:41 125 21 Nasal Cannula 2.0 28 06/15/17 09:37 125 20 98 Nasal Cannula 2.0 28 06/15/17 08:00 127 06/15/17 08:00 96.9 100 18 109/81 100 Nasal Cannula 2.0 06/15/17 04:00 97.0 125 20 132/94 97 06/15/17 04:00 120 06/15/17 00:00 97.0 123 24 144/92 95 06/14/17 23:32 96.1 125 24 130/89 91 Nasal Cannula 2.0 28 06/14/17 21:32 121 21 Nasal Cannula 2.0 28 06/14/17 21:32 96.1 125 24 130/89 91 Nasal Cannula 2.0 28 06/14/17 20:57 121 21 97 Nasal Cannula 2.0 28 06/14/17 20:42 121 22 89 Room Air 06/14/17 20:39 120 22 Room Air 06/14/17 20:21 96.1 130 24 134/109 87 Room Air Intake and Output 06/14/17 06/15/17 19:00 07:00 Intake Total 120 ml Output Total 0 ml Balance 120 ml Intake Oral 120 ml Output Urine Total 0 ml # Voids 1 Laboratory Tests Test 06/14/17 20:50 06/14/17 20:55 06/14/17 22:30 06/15/17 08:50 White Blood Count 12.0 K/UL (4.8-10.8) H 11.0 K/UL (4.8-10.8) H Red Blood Count 5.20 M/UL (4.70-6.10) 4.43 M/UL (4.70-6.10) L Hemoglobin 16.0 G/DL (14.2-18.0) 14.4 G/DL (14.2-18.0) Hematocrit 52.1 % (42.0-52.0) H 44.0 % (42.0-52.0) Mean Corpuscular Volume 100 FL (80-99) H 99 FL (80-99) Mean Corpuscular Hemoglobin 30.8 PG (27.0-31.0) 32.6 PG (27.0-31.0) H Mean Corpuscular Hemoglobin Concent 30.7 G/DL (32.0-36.0) L 32.9 G/DL (32.0-36.0) Red Cell Distribution Width 13.0 % (11.6-14.8) 13.1 % (11.6-14.8) Platelet Count 176 K/UL (150-450) 172 K/UL (150-450) Mean Platelet Volume 7.3 FL (6.5-10.1) 7.8 FL (6.5-10.1) Neutrophils (%) (Auto) 89.5 % (45.0-75.0) H % (45.0-75.0) Lymphocytes (%) (Auto) 5.6 % (20.0-45.0) L % (20.0-45.0) Monocytes (%) (Auto) 4.3 % (1.0-10.0) % (1.0-10.0) Eosinophils (%) (Auto) 0.0 % (0.0-3.0) % (0.0-3.0) Basophils (%) (Auto) 0.6 % (0.0-2.0) % (0.0-2.0) Sodium Level 140 MMOL/L (136-145) 140 MMOL/L (136-145) Potassium Level 4.7 MMOL/L (3.5-5.1) 4.4 MMOL/L (3.5-5.1) Chloride Level 104 MMOL/L (98-107) 104 MMOL/L (98-107) Carbon Dioxide Level 25 MMOL/L (21-32) 26 MMOL/L (21-32) Anion Gap 11 mmol/L (5-15) 10 mmol/L (5-15) Blood Urea Nitrogen 47 mg/dL (7-18) H 37 mg/dL (7-18) H Creatinine 1.1 MG/DL (0.55-1.30) 0.9 MG/DL (0.55-1.30) Estimat Glomerular Filtration Rate > 60 mL/min (>60) > 60 mL/min (>60) Glucose Level 140 MG/DL (74-106) H 178 MG/DL (74-106) H Calcium Level 9.8 MG/DL (8.5-10.1) 9.4 MG/DL (8.5-10.1) Total Bilirubin 1.4 MG/DL (0.2-1.0) H Direct Bilirubin 0.5 MG/DL (0.0-0.3) H Aspartate Amino Transf (AST/SGOT) 44 U/L (15-37) H Alanine Aminotransferase (ALT/SGPT) 65 U/L (12-78) Alkaline Phosphatase 91 U/L (46-116) Total Protein 6.7 G/DL (6.4-8.2) Albumin 2.3 G/DL (3.4-5.0) L Globulin 4.4 g/dL Albumin/Globulin Ratio 0.5 (1.0-2.7) L Lactic Acid Level 2.40 mmol/L (0.66-2.22) H 2.70 mmol/L (0.66-2.22) H Differential Total Cells Counted 100 Neutrophils % (Manual) 92 % (45-75) H Lymphocytes % (Manual) 6 % (20-45) L Monocytes % (Manual) 2 % (1-10) Eosinophils % (Manual) 0 % (0-3) Basophils % (Manual) 0 % (0-2) Band Neutrophils 0 % (0-8) Platelet Estimate Adequate Platelet Morphology Normal Red Blood Cell Morphology Normal Test 06/15/17 15:20 Arterial Blood pH 7.450 (7.350-7.450) Arterial Blood Partial Pressure CO2 38.0 mmHg (35.0-45.0) Arterial Blood Partial Pressure O2 51.2 mmHg (75.0-100.0) L Arterial Blood HCO3 25.8 mmol/L (22.0-26.0) Arterial Blood Oxygen Saturation 85.8 % (92.0-98.0) L Arterial Blood Base Excess 2.0 Edvin Test ASHOK ROSS Jun 15, 2017 16:54
--- NOTE | 2017-06-15 17:30 | Consultation ---
DATE OF CONSULTATION: 06/15/2017 INFECTIOUS DISEASE CONSULTATION CONSULTING PHYSICIAN: Gregg Mckenna M.D. REQUESTING PHYSICIAN: Willian Heck M.D. REASON FOR CONSULTATION: Diffuse pneumonia and sepsis with respiratory failure, recommendation for antibiotics treatment and further management. HISTORY OF PRESENT ILLNESS: The patient is a 67-year-old male with past medical history of CHF, COPD, coronary artery disease, hypertension, asthma, and dementia, presented to [facility] for difficulty breathing and productive cough. The patient was having symptoms since . Unclear whether he was admitted to the hospital or not then, but he visited the emergency room here at [facility] and received a shot of IV antibiotic and was discharged home. Blood culture was checked and influenza at that time and April both were negative. Now, he presented with worsening shortness of breath and productive cough with some fever and chills. The patient had a chest x-ray, which showed extensive patchy infiltrates, worse on the left, with elevated white count concerning for pneumonia and sepsis. He was started on levofloxacin and Zithromax, and I was consulted by the primary provider team for antibiotics treatment and further management. PAST MEDICAL HISTORY: Significant for coronary artery disease, hypertension, asthma, COPD, dementia, and tremor. PAST SURGICAL HISTORY: Negative, none on file. ALLERGIES: He is allergic to iodine, penicillin and soya protein. MEDICATIONS: The patient is on azithromycin and levofloxacin. For the rest of his medications, please refer to [facility]. FAMILY HISTORY: Negative for recurrent infection or immunocompromised condition. SOCIAL HISTORY: The patient is homeless, unclear whether he uses drugs, tobacco, or alcohol at this point. REVIEW OF SYSTEMS: A 14-point of system reviewed were all negative apart from the one I mentioned above in my History and Physical. PHYSICAL EXAMINATION: VITAL SIGNS: Temperature 96.9, pulse 100, respirations 18, blood pressure 109/81, and saturation 100% on 2 liters nasal cannula. GENERAL: A middle-aged male, morbidly obese, up in bed, unkempt, not in acute distress. HEENT: Normocephalic. He had right black eye. No subconjunctival bleeding or hemorrhage. Pupils are reactive to light equally. Moist oral mucosa. Poor dental hygiene. No thrush. NECK: Supple. No lymphadenopathy. CARDIOVASCULAR: Regular rate and rhythm. No murmur or gallop. He is tachycardic on and off. LUNGS: He had crackles and wheezing mainly on the left lung with diminished breathing sounds. Normal breathing effort. ABDOMEN: Soft, nontender, and nondistended. Positive bowel sounds. No hepatosplenomegaly or ascites. EXTREMITIES: He has edema with diffuse rash on both legs and severe onychomycosis. LABORATORY DATA: Labs showed white count of 11,000, hemoglobin of 14.4, hematocrit of 44, and platelet count of 172. BUN of 37 and creatinine of 0.9. MICROBIOLOGY: Pending at this time. IMAGING: Chest x-ray showed patchy airspace disease suspect pulmonary edema. Pneumonia is in the differential diagnosis. ASSESSMENT AND RECOMMENDATION: 1. Healthcare-acquired pneumonia with diffuse patchy infiltrate, left worse than right. We will start the patient on vancomycin and cefepime empiric coverage. Continue Zithromax for atypical coverage and screen for influenza. 2. Bilateral lower extremity cellulitis. The patient will be on vancomycin and cefepime, which will cover cellulitis. 3. Sepsis due to the above. We will start vancomycin and cefepime. Pending blood culture. 4. Acute respiratory failure due to the above. Continue oxygen and inhaler as needed. 5. Chronic obstructive pulmonary disease with exacerbation due to pneumonia. Continue nebulizer and oxygen therapy. Thank you for the consultation. Infectious Disease will continue to follow. Gregg Mckenna M.D. DR: QUENTIN JOB#: [id number] CC:
--- NOTE | 2017-06-15 19:15 | Consultation ---
DATE OF CONSULTATION: 06/15/2017 CARDIOLOGY CONSULTATION CONSULTING PHYSICIAN: Poncho Brower M.D. REFERRING PHYSICIAN: Willian Heck M.D. REASON FOR CONSULTATION: Shortness of breath and tachycardia. HISTORY OF PRESENT ILLNESS: The patient is a 67-year-old gentleman, who was recently admitted to the hospital, but he left the emergency room without any prescription. The patient was admitted on 05/01/2017 for congestive heart failure and COPD exacerbation. Blood culture was negative for influenza. The patient was sitting on the street outside the emergency room and said to the nurse when he was coming to the ER and "hold your care and I'm coming in." The patient was noted to be tachycardic with heart rate of 130 beats per minute with left bundle-branch block. The patient was admitted and Cardiology consultation was obtained for further evaluation. The patient, however, is very noncompliant and is not wearing his monitoring specialist. REVIEW OF SYSTEMS: Review of systems was negative other than what was mentioned in the history of present illness. PAST MEDICAL HISTORY: 1. COPD. 2. Congestive heart failure. PAST SURGICAL HISTORY: Negative. ALLERGIES: He is allergic to iodine, penicillin, and soya protein. FAMILY HISTORY: Noncontributory. PHYSICAL EXAMINATION: VITAL SIGNS: Show blood pressure of 129/82, pulse 120 to 135, respirations 22, and temperature 97.5. HEAD AND NECK: No JVD. LUNGS: Decreased breath sounds. CARDIOVASCULAR: Tachycardic. S1 and S2 with no gallop or murmur. ABDOMEN: Obese. EXTREMITIES: 2+ pitting edema. LABORATORY DATA: His labs show white count of 11, hemoglobin of 14.4, hematocrit of 44, and platelet count is 172. Sodium 140, potassium 4.4, BUN 37, and creatinine 0.9. His echocardiogram in April 2017 showed ejection fraction of 50%. ASSESSMENT AND PLAN: 1. Shortness of breath due to congestive heart failure as well as chronic obstructive pulmonary disease. The patient's most recent ejection fraction was within normal range. We will start the patient on Lasix 40 mg IV twice a day. 2. Complete left bundle-branch block with syncope. 3. Chronic obstructive pulmonary disease and pneumonia, on IV antibiotics per Dr. Heck as well as Dr. Mckenna. 4. Cellulitis of lower extremities. Thank you very much, Dr. Heck, for allowing me to participate in the care of this patient. Please do not hesitate to contact me for any questions regarding my evaluation. Poncho Brower M.D. DR: NANCI JOB#: [id number] CC:
[2017-06-15 20:00] VITALS: BP 126/89
[2017-06-16] VITALS: BP 126/67
[2017-06-16] MEDS: Cefepime HCl 2 GM in D5W 55 ML IVPB SCH ×2 (00:22→09:12)
[2017-06-16] MEDS: Azithromycin 500 MG in D5W 275 ML IV SCH (01:34)
[2017-06-16] MEDS: Albuterol/Ipratropium 3ml neb HHN PRN ×3 (02:37→21:27)
[2017-06-16] MEDS ORDERED: Vancomycin 1250mg/D5W 250ml IVPB SCH (03:00)
[2017-06-16 04:00] VITALS: BP 124/88
[2017-06-16 08:00] VITALS: BP 125/88
--- NOTE | 2017-06-16 10:07 | Consultation ---
Consult Note Consult Note DATE OF CONSULTATION: 06/16/2017 PULMONARY DISEASE CONSULTATION CONSULTING PHYSICIAN: Osmel Barnes M.D. REQUESTING PHYSICIAN: Willian Heck M.D. REASON FOR CONSULTATION: Pneumonia HISTORY OF PRESENT ILLNESS: The patient is a 67-year-old male with past medical history of CHF, COPD, coronary artery disease, hypertension, asthma, and some sort of cognitive impairment who presented to [facility] for difficulty breathing and productive cough. he reports symptoms for the last few months and that he visited the emergency room at [facility] and received a shot of IV antibiotic and was discharged home. Blood culture was checked and influenza at that time and April both were negative. Now, he presented with worsening shortness of breath and productive cough with some fever and chills. The patient had a chest x-ray, which showed extensive patchy infiltrates, worse on the left, with elevated white count concerning for pneumonia and sepsis. He was started on levofloxacin and Zithromax. 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 PAST SURGICAL HISTORY: Negative, none on file. ALLERGIES: He is allergic to iodine, penicillin and soya protein. MEDICATIONS: The patient is on azithromycin and levofloxacin. FAMILY HISTORY: Negative for recurrent infection or immunocompromised condition. SOCIAL HISTORY: The patient is homeless, unclear whether he uses drugs, tobacco, or alcohol at this point. REVIEW OF SYSTEMS: A 14-point of system reviewed were all negative apart from the one I mentioned above in my History and Physical. PHYSICAL EXAMINATION: VITAL SIGNS: Temperature 96.9, pulse 100, respirations 18, blood pressure 109/81, and saturation 100% on 2 liters nasal cannula. GENERAL: A middle-aged male, morbidly obese, up in bed, unkempt, not in acute distress. HEENT: Normocephalic. He had right black eye. No subconjunctival bleeding or hemorrhage. Pupils are reactive to light equally. Moist oral mucosa. Poor dental hygiene. No thrush. NECK: Supple. No lymphadenopathy. CARDIOVASCULAR: Regular rate and rhythm. No murmur or gallop. He is tachycardic on and off. LUNGS: He had bilateral crackles and wheezing. ABDOMEN: Soft, nontender, and nondistended. Positive bowel sounds. No hepatosplenomegaly or ascites. EXTREMITIES: He has edema with diffuse rash on both legs and severe onychomycosis. LABORATORY DATA: Labs showed white count of 11,000, hemoglobin of 14.4, hematocrit of 44, and platelet count of 172. BUN of 37 and creatinine of 0.9. MICROBIOLOGY: negative so far IMAGING: Chest x-ray showed patchy airspace disease suspect pulmonary edema. Pneumonia is in the differential diagnosis. ASSESSMENT AND RECOMMENDATION: 1. Pneumonia with diffuse patchy infiltrate, left worse than right. agree with vancomycin and cefepime empiric coverage. Continue Zithromax for atypical coverage and screen for influenza. 2. Bilateral lower extremity cellulitis. continue antibiotics 3. Sepsis due to the above. continue antibiotics 4. Chronic obstructive pulmonary disease Continue nebulizer and oxygen therapy. Thank you for the consultation. Osmel Barnes M.D. Osmel Barnes MD Jun 16, 2017 10:07
[2017-06-16 12:00] VITALS: BP 130/85
--- NOTE | 2017-06-16 13:17 | Cardiac Electrophysiology PN ---
Assessment/Plan Assessment/Plan 1. Shortness of breath due to congestive heart failure as well as chronic obstructive pulmonary disease. The patient's most recent ejection fraction was within normal range. Continue Lasix 40 mg IV twice a day. 2. Complete left bundle-branch block without syncope. 3. Chronic obstructive pulmonary disease and pneumonia, on IV antibiotics per Dr. Heck as well as Dr. Mckenna. 4. Cellulitis of lower extremities. Subjective Subjective Feeling better on Lasix. Objective Last 24 Hour Vital Signs Date Time Temp Pulse Resp B/P (MAP) Pulse Ox O2 Delivery O2 Flow Rate FiO2 06/16/17 08:01 92 Nasal Cannula 2.0 28 06/16/17 08:01 Nasal Cannula 2.0 28 06/16/17 08:01 128 20 Nasal Cannula 2.0 28 06/16/17 08:00 97.0 127 20 125/88 92 Nasal Cannula 2.0 06/16/17 04:00 98.0 126 18 124/88 97 06/16/17 02:47 123 22 99 Nasal Cannula 2.0 28 06/16/17 02:37 119 22 93 Room Air 06/16/17 00:00 97.0 126 20 126/67 90 06/15/17 20:07 Nasal Cannula 2.0 28 06/15/17 20:07 96 Nasal Cannula 2.0 28 06/15/17 20:07 119 20 Nasal Cannula 2.0 28 06/15/17 20:00 97.0 70 20 126/89 90 06/15/17 18:05 128 06/15/17 15:15 135 22 94 Nasal Cannula 2.0 28 06/15/17 15:13 97.5 122 18 129/82 100 06/15/17 15:05 134 28 98 Nasal Cannula 2.0 Intake and Output 06/15/17 06/16/17 19:00 07:00 Intake Total 580 ml 640 ml Balance 580 ml 640 ml Intake Oral 580 ml 640 ml # Voids 2 4 Laboratory Tests Test 06/15/17 15:20 Arterial Blood pH 7.450 (7.350-7.450) Arterial Blood Partial Pressure CO2 38.0 mmHg (35.0-45.0) Arterial Blood Partial Pressure O2 51.2 mmHg (75.0-100.0) L Arterial Blood HCO3 25.8 mmol/L (22.0-26.0) Arterial Blood Oxygen Saturation 85.8 % (92.0-98.0) L Arterial Blood Base Excess 2.0 Edvin Test Microbiology Date/Time Source Procedure Growth Status 06/14/17 21:30 Blood Blood Culture - Preliminary NO GROWTH AFTER 24 HOURS Resulted 06/14/17 21:15 Blood Blood Culture - Preliminary NO GROWTH AFTER 24 HOURS Resulted Objective HEAD AND NECK: No JVD. LUNGS: Decreased breath sounds. CARDIOVASCULAR: Tachycardic. S1 and S2 with no gallop or murmur. ABDOMEN: Obese. EXTREMITIES: 2+ pitting edema. ASHOK ROSS Jun 16, 2017 13:17
--- NOTE | 2017-06-16 15:29 | Infectious Diseases Prog Note ---
Assessment/Plan Problems: (1) HCAP (healthcare-associated pneumonia) Assessment & Plan: with diffuse patchy infiltrates left worse, than right, continue vancomycin and cefepime empiric coverage, continue zithromax for atypical organisms coverage , and screen for influenza . (2) Cellulitis and abscess of lower extremity Assessment & Plan: already on vancomycin and cefepime (3) Sepsis Assessment & Plan: due to the above, on vancomycin and cefepime , pending blood culture (4) Acute respiratory failure Assessment & Plan: due to the above, continue oxygen and inhalers , monitor CXR (5) COPD (chronic obstructive pulmonary disease) Assessment & Plan: with exacerbation due to the above , continue nebulizers and oxygen therapy Subjective Constitutional: Reports: fatigue HEENT: Reports: no symptoms Respiratory: Reports: productive cough Breasts: Reports: no symptoms Cardiovascular: Reports: no symptoms Gastrointestinal/Abdominal: Reports: no symptoms Genitourinary: Reports: no symptoms Neurologic: Reports: no symptoms Psychiatric: Reports: no symptoms Skin: Reports: rash Endocrine: Reports: no symptoms Hematologic: Reports: no symptoms Musculoskeletal: Reports: pain Allergies: Coded Allergies: Cultivated Oat Pollen (Verified Allergy, Unknown, 05/01/17) IODINE AND IODIDE CONTAINING PRODUC (Verified Allergy, Unknown, 05/01/17) PENICILLINS (Verified Allergy, Unknown, 05/02/17) Soy Protein (Verified Allergy, Unknown, 05/01/17) Objective Vital Signs Last 24 Hour Vital Signs Date Time Temp Pulse Resp B/P (MAP) Pulse Ox O2 Delivery O2 Flow Rate FiO2 06/16/17 12:00 97.8 118 22 130/85 93 Nasal Cannula 2.0 06/16/17 08:01 92 Nasal Cannula 2.0 28 06/16/17 08:01 Nasal Cannula 2.0 28 06/16/17 08:01 128 20 Nasal Cannula 2.0 28 06/16/17 08:00 97.0 127 20 125/88 92 Nasal Cannula 2.0 06/16/17 04:00 98.0 126 18 124/88 97 06/16/17 02:47 123 22 99 Nasal Cannula 2.0 28 06/16/17 02:37 119 22 93 Room Air 06/16/17 00:00 97.0 126 20 126/67 90 06/15/17 20:07 Nasal Cannula 2.0 28 06/15/17 20:07 96 Nasal Cannula 2.0 28 06/15/17 20:07 119 20 Nasal Cannula 2.0 28 06/15/17 20:00 97.0 70 20 126/89 90 06/15/17 18:05 128 Height (Feet): 6 Height (Inches): 1.00 Weight (Pounds): 260 General Appearance: WD/WN, no acute distress HEENT: normocephalic, atraumatic, anicteric, mucous membranes moist, PERRL Respiratory/Chest: chest wall non-tender, lungs clear, normal breath sounds, no respiratory distress, no accessory muscle use Cardiovascular: normal peripheral pulses, normal rate, regular rhythm, no gallop/murmur, no JVD Abdomen: normal bowel sounds, soft, non tender, no organomegaly, non distended , no mass, no scars Extremities: no cyanosis, no clubbing Skin: no rash, no lesions, no ulcers Neurologic/Psychiatric: alert, oriented x 3, responsive Microbiology Date/Time Source Procedure Growth Status 06/14/17 21:30 Blood Blood Culture - Preliminary NO GROWTH AFTER 24 HOURS Resulted 06/14/17 21:15 Blood Blood Culture - Preliminary NO GROWTH AFTER 24 HOURS Resulted Current Medications Medications (Trade) Dose Ordered Sig/Shine Route PRN Reason Start Time Stop Time Status Last Admin Dose Admin Acetaminophen (Tylenol) 650 mg Q4H PRN ORAL Mild Pain (Pain Scale 1-3) 06/16/17 15:00 07/15/17 14:59 Albuterol/ Ipratropium (Albuterol/ Ipratropium) 3 ml Q4H PRN HHN Shortness of Breath 06/16/17 15:00 06/21/17 14:59 Azithromycin 500 mg/Dextrose 275 ml @ 275 mls/hr Q24H IV 06/17/17 01:00 06/22/17 00:59 Cefepime HCl 2 gm/ Dextrose 55 ml @ 110 mls/hr EVERY 12 HOURS IVPB 06/16/17 21:00 06/22/17 13:59 Diphenhydramine HCl (Benadryl) 25 mg Q6H PRN ORAL Itching/Pruritis 06/16/17 15:00 07/15/17 14:59 Furosemide (Lasix) 40 mg EVERY 12 HOURS IV 06/16/17 21:00 07/15/17 20:59 Lorazepam (Ativan) 1 mg Q4H PRN ORAL For Anxiety 06/16/17 15:00 06/22/17 14:59 Ondansetron HCl (Zofran) 4 mg Q6H PRN IVP Nausea & Vomiting 06/16/17 15:00 07/15/17 14:59 Vancomycin HCl (Vanco rx to dose) 1 ea DAILY PRN MISC Per rx protocol 06/16/17 15:00 07/16/17 14:59 Vancomycin HCl/ Dextrose 250 ml @ 166.667 mls/hr Q12HR@0300,1500 IVPB 06/16/17 15:00 06/21/17 02:59 Zolpidem Tartrate (Ambien) 5 mg HSPRN PRN ORAL Insomnia 06/16/17 21:00 06/23/17 20:59 Gregg Mckenna M.D. Jun 16, 2017 15:29
[2017-06-16] MEDS: Vancomycin 1250mg/D5W 250ml 250 ML IVPB SCH (16:06)
[2017-06-16 16:10] VITALS: BP 136/98
[2017-06-16] MEDS ORDERED: NS 500ML ONE (19:15)
[2017-06-16] MEDS ORDERED: Tubing IV Secondary IV ONE (19:15)
[2017-06-16] MEDS ORDERED: D5W 275ml ONE (19:15)
[2017-06-16 20:00] VITALS: BP 114/83
[2017-06-16] MEDS ORDERED: Norco 5mg/325mg tab ORAL PRN (20:00)
--- NOTE | 2017-06-16 20:01 | Nephrology Progress Note ---
Assessment/Plan Problem List: (1) Dyspnea (2) Pneumonia (3) COPD (chronic obstructive pulmonary disease) (4) Acute respiratory failure (5) Sepsis (6) HTN (hypertension) (7) Cellulitis and abscess of lower extremity Plan Continue treatment plan O2 prn Continue Neb treatment Abx per ID BLE ultrasound to r/o DVT Monitor carltontes, correct prn DVT prophylaxis PPI AM labs Subjective Constitutional: Denies: no symptoms, chills, diaphoresis, fever, malaise, weakness, other HEENT: Denies: no symptoms, eye pain, blurred vision, tearing, double vision, ear pain, ear discharge, nose pain, nose congestion, throat pain, throat swelling, mouth pain, mouth swelling, other Genitourinary: Denies: no symptoms, burning, discharge, frequency, flank pain, hematuria, incontinence, pain, urgency, other Neurologic/Psychiatric: Denies: no symptoms, anxiety, depressed, emotional problems, headache, numbness, paresthesia, pre-existing deficit, seizure, tingling, tremors, weakness, other Subjective In bed, in no apparent distress Objective Objective Last 24 Hour Vital Signs Date Time Temp Pulse Resp B/P (MAP) Pulse Ox O2 Delivery O2 Flow Rate FiO2 06/16/17 17:20 110 20 94 Nasal Cannula 2.0 06/16/17 16:10 94 Nasal Cannula 2.0 06/16/17 16:10 98.4 117 20 136/98 94 06/16/17 12:00 97.8 118 22 130/85 93 Nasal Cannula 2.0 06/16/17 08:01 92 Nasal Cannula 2.0 28 06/16/17 08:01 Nasal Cannula 2.0 28 06/16/17 08:01 128 20 Nasal Cannula 2.0 28 06/16/17 08:00 97.0 127 20 125/88 92 Nasal Cannula 2.0 06/16/17 04:00 98.0 126 18 124/88 97 06/16/17 02:47 123 22 99 Nasal Cannula 2.0 28 06/16/17 02:37 119 22 93 Room Air 06/16/17 00:00 97.0 126 20 126/67 90 06/15/17 20:07 Nasal Cannula 2.0 28 06/15/17 20:07 96 Nasal Cannula 2.0 28 06/15/17 20:07 119 20 Nasal Cannula 2.0 28 06/15/17 20:00 97.0 70 20 126/89 90 Intake and Output 06/15/17 06/16/17 19:00 07:00 Intake Total 580 ml 640 ml Balance 580 ml 640 ml Intake Oral 580 ml 640 ml # Voids 2 4 Height (Feet): 6 Height (Inches): 1.00 Weight (Pounds): 260 General Appearance: no apparent distress, alert EENT: normal ENT inspection Neck: normal alignment Cardiovascular: tachycardia Respiratory/Chest: no respiratory distress Abdomen: soft Extremities: calf tenderness Neurologic: alert, oriented x 3, responsive, normal mood/affect Lexus Lopez N.P. Jun 16, 2017 20:01
[2017-06-16] MEDS ORDERED: Zolpidem 5mg tab ORAL PRN (21:00)
[2017-06-16] MEDS ORDERED: Cefepime HCl 2 GM in D5W 55 ML IVPB SCH (21:00)
[2017-06-16] MEDS ORDERED: Heparin 5000 units/ml inj SUBQ SCH (21:00)
[2017-06-16] MEDS: LORazepam 1mg tab ORAL PRN (22:51)
[2017-06-17] VITALS (7 sets, daily range): BP systolic 120–136; BP diastolic 68–100
[2017-06-17] MEDS: Azithromycin 500 MG in D5W 275 ML IV SCH (01:00)
[2017-06-17] MEDS: Vancomycin 1250mg/D5W 250ml 250 ML IVPB SCH (03:00)
[2017-06-17 03:10] LABS: HEMATOCRIT 42.9 % (42.0-52.0); HEMOGLOBIN 14.3 G/DL (14.2-18.0); MEAN CORPUSCULAR VOLUME 98 FL (80-99); PLATELET COUNT 188 K/UL (150-450); RED BLOOD COUNT 4.36 M/UL (4.70-6.10); RED CELL DISTRIBUTION WIDTH 12.9 % (11.6-14.8); WHITE BLOOD COUNT 11.4 K/UL (4.8-10.8)
[2017-06-17] MEDS: LORazepam 1mg tab ORAL PRN (03:13)
[2017-06-17 03:42] LABS: ANION GAP 6 mmol/L (5-15); BLOOD UREA NITROGEN 24 mg/dL (7-18); CALCIUM 8.9 MG/DL (8.5-10.1); CARBON DIOXIDE 34 MMOL/L (21-32); CHLORIDE 102 MMOL/L (98-107); CREATININE 0.8 MG/DL (0.55-1.30); POTASSIUM 3.6 MMOL/L (3.5-5.1); SODIUM 142 MMOL/L (136-145)
[2017-06-17] MEDS ORDERED: Vancomycin 1.5 GM/D5W 250ML IVPB SCH (04:00)
[2017-06-17] MEDS ORDERED: Levalbuterol Inh UD 1.25mg/0.5ml HHN SCH (07:00)
--- NOTE | 2017-06-17 07:24 | Pulmonology Progress Note ---
Assessment/Plan Assessment/Plan ASSESSMENT AND RECOMMENDATION: 1. Pneumonia with diffuse patchy infiltrate, left worse than right. agree with vancomycin and cefepime empiric coverage. Continue Zithromax for atypical coverage and screen for influenza. 2. Bilateral lower extremity cellulitis. continue antibiotics 3. Sepsis due to the above. continue antibiotics 4. Chronic obstructive pulmonary disease Continue nebulizer and oxygen therapy. Subjective Interval Events: none Constitutional: Reports: no symptoms HEENT: Repors: no symptoms Respiratory: Reports: shortness of breath Cardiovascular: Reports: no symptoms Gastrointestinal/Abdominal: Reports: no symptoms Genitourinary: Reports: no symptoms Allergies: Coded Allergies: Cultivated Oat Pollen (Verified Allergy, Unknown, 05/01/17) IODINE AND IODIDE CONTAINING PRODUC (Verified Allergy, Unknown, 05/01/17) PENICILLINS (Verified Allergy, Unknown, 05/02/17) Soy Protein (Verified Allergy, Unknown, 05/01/17) Objective Last 24 Hour Vital Signs Date Time Temp Pulse Resp B/P (MAP) Pulse Ox O2 Delivery O2 Flow Rate FiO2 06/17/17 07:19 98.7 127 19 124/91 86 06/17/17 04:00 97.9 117 19 120/80 93 06/17/17 00:00 98.0 118 20 127/93 94 Nasal Cannula 4.0 06/17/17 00:00 98.1 118 20 127/93 94 06/16/17 21:20 127 20 94 Nasal Cannula 2.0 28 06/16/17 20:00 98.4 117 20 114/83 94 06/16/17 19:58 94 Nasal Cannula 2.0 28 06/16/17 19:58 Nasal Cannula 2.0 28 06/16/17 19:57 121 20 Nasal Cannula 2.0 28 06/16/17 17:20 110 20 94 Nasal Cannula 2.0 06/16/17 16:10 94 Nasal Cannula 2.0 06/16/17 16:10 98.4 117 20 136/98 94 06/16/17 12:00 97.8 118 22 130/85 93 Nasal Cannula 2.0 06/16/17 08:01 92 Nasal Cannula 2.0 28 06/16/17 08:01 Nasal Cannula 2.0 28 06/16/17 08:01 128 20 Nasal Cannula 2.0 28 06/16/17 08:00 97.0 127 20 125/88 92 Nasal Cannula 2.0 Intake and Output 06/16/17 06/17/17 19:00 07:00 Intake Total 200 ml Balance 200 ml Intake Oral 200 ml # Voids 5 # Bowel Movements 1 General Appearance: no acute distress HEENT: normocephalic Respiratory/Chest: chest wall non-tender, lungs clear Cardiovascular: normal peripheral pulses, normal rate Microbiology Date/Time Source Procedure Growth Status 06/14/17 21:30 Blood Blood Culture - Preliminary NO GROWTH AFTER 24 HOURS Resulted 06/14/17 21:15 Blood Blood Culture - Preliminary NO GROWTH AFTER 24 HOURS Resulted 06/14/17 21:36 Rectum VRE Culture - Final NO VANCOMYCIN RESISTANT ENTEROCOCCUS ... Complete Laboratory Tests 06/17/17 02:45: White Blood Count 11.4H, Red Blood Count 4.36L, Hemoglobin 14.3, Hematocrit 42.9 , Mean Corpuscular Volume 98, Mean Corpuscular Hemoglobin 32.7H, Mean Corpuscular Hemoglobin Concent 33.3, Red Cell Distribution Width 12.9, Platelet Count 188, Mean Platelet Volume 7.8, Neutrophils (%) (Auto) , Lymphocytes (%) ( Auto) , Monocytes (%) (Auto) , Eosinophils (%) (Auto) , Basophils (%) (Auto) , Differential Total Cells Counted 100, Neutrophils % (Manual) 92H, Lymphocytes % (Manual) 6L, Monocytes % (Manual) 2, Eosinophils % (Manual) 0, Basophils % ( Manual) 0, Band Neutrophils 0, Platelet Estimate Adequate, Platelet Morphology Normal, Sodium Level 142, Potassium Level 3.6, Chloride Level 102, Carbon Dioxide Level 34H, Anion Gap 6, Blood Urea Nitrogen 24H, Creatinine 0.8, Estimat Glomerular Filtration Rate > 60, Glucose Level 125H, Calcium Level 8.9, Vancomycin Level Trough 5.8 Current Medications Medications (Trade) Dose Ordered Sig/Shine Route PRN Reason Start Time Stop Time Status Last Admin Dose Admin Acetaminophen (Tylenol) 650 mg Q4H PRN ORAL Mild Pain (Pain Scale 1-3) 06/16/17 15:00 07/15/17 14:59 Acetaminophen/ Hydrocodone Bitart (Thornton 5/325) 1 tab Q4H PRN ORAL Moderate Pain (Pain Scale 4-6) 06/16/17 20:00 06/23/17 19:59 Azithromycin 500 mg/Dextrose 275 ml @ 275 mls/hr Q24H IV 06/17/17 01:00 06/22/17 00:59 Cefepime HCl 2 gm/ Dextrose 55 ml @ 110 mls/hr EVERY 12 HOURS IVPB 06/16/17 21:00 06/22/17 13:59 06/16/17 20:47 Diphenhydramine HCl (Benadryl) 25 mg Q6H PRN ORAL Itching/Pruritis 06/16/17 15:00 07/15/17 14:59 Furosemide (Lasix) 40 mg EVERY 12 HOURS IV 06/16/17 21:00 07/15/17 20:59 06/16/17 20:46 Heparin Sodium (Porcine) (Heparin 5000 units/ml) 5,000 units EVERY 12 HOURS SUBQ 06/16/17 21:00 07/16/17 20:59 06/16/17 20:49 Levalbuterol HCl (Xopenex) 1.25 mg TIDRT HHN 06/17/17 07:00 06/22/17 06:59 Lorazepam (Ativan) 1 mg Q4H PRN ORAL For Anxiety 06/16/17 15:00 06/22/17 14:59 06/17/17 03:13 Ondansetron HCl (Zofran) 4 mg Q6H PRN IVP Nausea & Vomiting 06/16/17 15:00 07/15/17 14:59 Pantoprazole (Protonix) 40 mg DAILY ORAL 06/17/17 09:00 07/17/17 08:59 Vancomycin HCl (Vanco rx to dose) 1 ea DAILY PRN MISC Per rx protocol 06/16/17 15:00 07/16/17 14:59 Vancomycin HCl/ Dextrose 250 ml @ 125 mls/hr Q8H IVPB 06/17/17 04:00 06/22/17 03:59 06/17/17 04:35 Zolpidem Tartrate (Ambien) 5 mg HSPRN PRN ORAL Insomnia 06/16/17 21:00 06/23/17 20:59 Osmel Barnes MD Jun 17, 2017 07:23
[2017-06-17] MEDS ORDERED: Norco 5mg/325mg tab ORAL PRN (08:00)
[2017-06-17] MEDS ORDERED: LORazepam 1mg tab ORAL PRN (09:00)
[2017-06-17] MEDS ORDERED: NS 250 ML IVPB ONE (09:15)
[2017-06-17] MEDS ORDERED: Azithromycin 500 MG in D5W 275 ML IV SCH (09:30)
[2017-06-17] MEDS ORDERED: Zolpidem 5mg tab ORAL PRN (09:30)
[2017-06-17] MEDS: Heparin 5000 units/ml inj SUBQ SCH ×2 (10:21→20:55)
[2017-06-17] MEDS: Cefepime HCl 2 GM in D5W 55 ML IVPB SCH ×2 (10:35→22:33)
[2017-06-17] MEDS: Levalbuterol Inh UD 1.25mg/0.5ml HHN SCH ×2 (12:48→20:36)
--- NOTE | 2017-06-17 13:32 | Cardiac Electrophysiology PN ---
Assessment/Plan Assessment/Plan 1. Shortness of breath due to congestive heart failure and chronic obstructive pulmonary disease. The patient's most recent ejection fraction was within normal range. Continue Lasix 40 mg IV twice a day.On BIPAP. 2. Complete left bundle-branch block without syncope. 3. Sinus Tachycardia. No atrial fib or SVT. Due to COPD and large left sided PNA 4. Chronic obstructive pulmonary disease and pneumonia, on IV antibiotics per Dr. Heck as well as Dr. Mckenna. 5. Cellulitis of lower extremities. ABDULKADIR RN and Dr. Mckenna Subjective Subjective Transferred back to [facility] as was tachycardic. ECG sinus tach 130s and agitated on BIPAP. Objective Last 24 Hour Vital Signs Date Time Temp Pulse Resp B/P (MAP) Pulse Ox O2 Delivery O2 Flow Rate FiO2 06/17/17 13:12 133 32 95 Facial 30 06/17/17 12:58 133 22 95 Bi-pap 30 06/17/17 12:48 130 24 92 Nasal Cannula 2.0 28 06/17/17 12:36 97.0 116 19 133/81 94 Nasal Cannula 2.0 06/17/17 10:45 117 26 95 Facial 30 06/17/17 10:00 121 27 93 Facial 30 06/17/17 07:58 120 06/17/17 07:56 97.0 130 19 130/100 94 Nasal Cannula 2.0 06/17/17 07:32 Nasal Cannula 2.0 28 06/17/17 07:32 92 Nasal Cannula 2.0 28 06/17/17 07:32 111 20 Nasal Cannula 2.0 28 06/17/17 07:19 98.7 127 19 124/91 86 06/17/17 04:00 97.9 117 19 120/80 93 06/17/17 00:00 98.0 118 20 127/93 94 Nasal Cannula 2.0 06/17/17 00:00 98.1 118 20 127/93 94 06/16/17 21:20 127 20 94 Nasal Cannula 2.0 28 06/16/17 20:00 98.4 117 20 114/83 94 06/16/17 19:58 94 Nasal Cannula 2.0 28 06/16/17 19:58 Nasal Cannula 2.0 28 06/16/17 19:57 121 20 Nasal Cannula 2.0 28 06/16/17 17:20 110 20 94 Nasal Cannula 2.0 06/16/17 16:10 94 Nasal Cannula 2.0 06/16/17 16:10 98.4 117 20 136/98 94 Intake and Output 06/16/17 06/17/17 19:00 07:00 Intake Total 200 ml Balance 200 ml Intake Oral 200 ml # Voids 5 # Bowel Movements 1 Laboratory Tests Test 06/17/17 02:45 06/17/17 08:28 White Blood Count 11.4 K/UL (4.8-10.8) H Red Blood Count 4.36 M/UL (4.70-6.10) L Hemoglobin 14.3 G/DL (14.2-18.0) Hematocrit 42.9 % (42.0-52.0) Mean Corpuscular Volume 98 FL (80-99) Mean Corpuscular Hemoglobin 32.7 PG (27.0-31.0) H Mean Corpuscular Hemoglobin Concent 33.3 G/DL (32.0-36.0) Red Cell Distribution Width 12.9 % (11.6-14.8) Platelet Count 188 K/UL (150-450) Mean Platelet Volume 7.8 FL (6.5-10.1) Neutrophils (%) (Auto) % (45.0-75.0) Lymphocytes (%) (Auto) % (20.0-45.0) Monocytes (%) (Auto) % (1.0-10.0) Eosinophils (%) (Auto) % (0.0-3.0) Basophils (%) (Auto) % (0.0-2.0) Differential Total Cells Counted 100 Neutrophils % (Manual) 92 % (45-75) H Lymphocytes % (Manual) 6 % (20-45) L Monocytes % (Manual) 2 % (1-10) Eosinophils % (Manual) 0 % (0-3) Basophils % (Manual) 0 % (0-2) Band Neutrophils 0 % (0-8) Platelet Estimate Adequate Platelet Morphology Normal Sodium Level 142 MMOL/L (136-145) Potassium Level 3.6 MMOL/L (3.5-5.1) Chloride Level 102 MMOL/L (98-107) Carbon Dioxide Level 34 MMOL/L (21-32) H Anion Gap 6 mmol/L (5-15) Blood Urea Nitrogen 24 mg/dL (7-18) H Creatinine 0.8 MG/DL (0.55-1.30) Estimat Glomerular Filtration Rate > 60 mL/min (>60) Glucose Level 125 MG/DL (74-106) H Calcium Level 8.9 MG/DL (8.5-10.1) Vancomycin Level Trough 5.8 ug/mL (5.0-12.0) Arterial Blood pH 7.370 (7.350-7.450) Arterial Blood Partial Pressure CO2 56.9 mmHg (35.0-45.0) *H Arterial Blood Partial Pressure O2 67.9 mmHg (75.0-100.0) L Arterial Blood HCO3 32.8 mmol/L (22.0-26.0) H Arterial Blood Oxygen Saturation 91.9 % (92.0-98.0) L Arterial Blood Base Excess 5.9 Edvin Test Positive Microbiology Date/Time Source Procedure Growth Status 06/14/17 21:30 Blood Blood Culture - Preliminary NO GROWTH AFTER 48 HOURS Resulted 06/14/17 21:15 Blood Blood Culture - Preliminary NO GROWTH AFTER 48 HOURS Resulted 06/14/17 21:36 Nasal Nares MRSA Culture - Final NO METHICILLIN RESISTANT STAPH AUREUS... Complete 06/14/17 21:36 Rectum VRE Culture - Final NO VANCOMYCIN RESISTANT ENTEROCOCCUS ... Complete Objective HEAD AND NECK: Positive JVD.BIPAP. LUNGS: Decreased breath sounds. CARDIOVASCULAR: Tachycardic S1 and S2 with no gallop or murmur. ABDOMEN: Obese. EXTREMITIES: 2+ pitting edema. ASHOK RSOS Jun 17, 2017 13:32
[2017-06-17] MEDS: Vancomycin 1.5gm/D5W 250ml 250 ML IVPB SCH ×2 (14:19→20:50)
--- NOTE | 2017-06-17 15:17 | Infectious Diseases Prog Note ---
Assessment/Plan Problems: (1) HCAP (healthcare-associated pneumonia) Assessment & Plan: with diffuse patchy infiltrates left worse, than right, already on vancomycin and cefepime empiric coverage, and zithromax for atypical organisms coverage , not febrile, with mildly elevated WBC, and negative blood culture , suspect fluids overload on top, will repeat CXR to confirm. continue current antibiotics, obtain sputum culture (2) Cellulitis and abscess of lower extremity Assessment & Plan: already on vancomycin and cefepime (3) Sepsis Assessment & Plan: less likely, with negative blood culture , already on vancomycin and cefepime , pending blood culture (4) Acute respiratory failure Assessment & Plan: suspect fluids overload on top , and pneumonia , now on BIPAP, for breathing support , will repeat CXR to confirm , and order troponin level , cardiology is following , recommend pulmonary consult . (5) COPD (chronic obstructive pulmonary disease) Assessment & Plan: with exacerbation due to the above , continue nebulizers and oxygen therapy Subjective Constitutional: Reports: fatigue HEENT: Reports: no symptoms Respiratory: Reports: shortness of breath, dry cough Breasts: Reports: no symptoms Cardiovascular: Reports: palpitations Gastrointestinal/Abdominal: Reports: no symptoms Genitourinary: Reports: no symptoms Neurologic: Reports: weakness, confusion Psychiatric: Reports: no symptoms Skin: Reports: rash Endocrine: Reports: no symptoms Hematologic: Reports: no symptoms Allergies: Coded Allergies: Cultivated Oat Pollen (Verified Allergy, Unknown, 05/01/17) IODINE AND IODIDE CONTAINING PRODUC (Verified Allergy, Unknown, 05/01/17) PENICILLINS (Verified Allergy, Unknown, 05/02/17) Soy Protein (Verified Allergy, Unknown, 05/01/17) Objective Vital Signs Last 24 Hour Vital Signs Date Time Temp Pulse Resp B/P (MAP) Pulse Ox O2 Delivery O2 Flow Rate FiO2 06/17/17 13:12 133 32 95 Facial 30 06/17/17 12:58 133 22 95 Bi-pap 30 06/17/17 12:48 130 24 92 Nasal Cannula 2.0 28 06/17/17 12:36 97.0 116 19 133/81 94 Nasal Cannula 2.0 06/17/17 12:01 110 06/17/17 10:45 117 26 95 Facial 30 06/17/17 10:00 121 27 93 Facial 30 06/17/17 07:58 120 06/17/17 07:56 97.0 130 19 130/100 94 Nasal Cannula 2.0 06/17/17 07:32 Nasal Cannula 2.0 28 06/17/17 07:32 92 Nasal Cannula 2.0 28 06/17/17 07:32 111 20 Nasal Cannula 2.0 28 06/17/17 07:19 98.7 127 19 124/91 86 06/17/17 04:00 97.9 117 19 120/80 93 06/17/17 00:00 98.0 118 20 127/93 94 Nasal Cannula 2.0 06/17/17 00:00 98.1 118 20 127/93 94 06/16/17 21:20 127 20 94 Nasal Cannula 2.0 28 06/16/17 20:00 98.4 117 20 114/83 94 06/16/17 19:58 94 Nasal Cannula 2.0 28 06/16/17 19:58 Nasal Cannula 2.0 28 06/16/17 19:57 121 20 Nasal Cannula 2.0 28 06/16/17 17:20 110 20 94 Nasal Cannula 2.0 06/16/17 16:10 94 Nasal Cannula 2.0 06/16/17 16:10 98.4 117 20 136/98 94 Height (Feet): 6 Height (Inches): 1.00 Weight (Pounds): 260 General Appearance: WD/WN, other - confused, agitated, and tachypneic HEENT: normocephalic, atraumatic, anicteric, PERRL, supple Respiratory/Chest: respiratory distress, decreased breath sounds, accessory muscle use, crackles/rales, inspiratory wheezing Cardiovascular: regular rhythm, no gallop/murmur, no JVD, tachycardia Abdomen: normal bowel sounds, soft, non tender, no organomegaly, non distended , no mass, no scars Extremities: no cyanosis, no clubbing, other - dermatitis Skin: no rash, no lesions, ulcers Neurologic/Psychiatric: alert, responsive, depressed affect Microbiology Date/Time Source Procedure Growth Status 06/14/17 21:30 Blood Blood Culture - Preliminary NO GROWTH AFTER 48 HOURS Resulted 06/14/17 21:15 Blood Blood Culture - Preliminary NO GROWTH AFTER 48 HOURS Resulted 06/14/17 21:36 Nasal Nares MRSA Culture - Final NO METHICILLIN RESISTANT STAPH AUREUS... Complete 06/14/17 21:36 Rectum VRE Culture - Final NO VANCOMYCIN RESISTANT ENTEROCOCCUS ... Complete Laboratory Tests Test 06/17/17 02:45 06/17/17 08:28 White Blood Count 11.4 K/UL (4.8-10.8) H Red Blood Count 4.36 M/UL (4.70-6.10) L Hemoglobin 14.3 G/DL (14.2-18.0) Hematocrit 42.9 % (42.0-52.0) Mean Corpuscular Volume 98 FL (80-99) Mean Corpuscular Hemoglobin 32.7 PG (27.0-31.0) H Mean Corpuscular Hemoglobin Concent 33.3 G/DL (32.0-36.0) Red Cell Distribution Width 12.9 % (11.6-14.8) Platelet Count 188 K/UL (150-450) Mean Platelet Volume 7.8 FL (6.5-10.1) Neutrophils (%) (Auto) % (45.0-75.0) Lymphocytes (%) (Auto) % (20.0-45.0) Monocytes (%) (Auto) % (1.0-10.0) Eosinophils (%) (Auto) % (0.0-3.0) Basophils (%) (Auto) % (0.0-2.0) Differential Total Cells Counted 100 Neutrophils % (Manual) 92 % (45-75) H Lymphocytes % (Manual) 6 % (20-45) L Monocytes % (Manual) 2 % (1-10) Eosinophils % (Manual) 0 % (0-3) Basophils % (Manual) 0 % (0-2) Band Neutrophils 0 % (0-8) Platelet Estimate Adequate Platelet Morphology Normal Sodium Level 142 MMOL/L (136-145) Potassium Level 3.6 MMOL/L (3.5-5.1) Chloride Level 102 MMOL/L (98-107) Carbon Dioxide Level 34 MMOL/L (21-32) H Anion Gap 6 mmol/L (5-15) Blood Urea Nitrogen 24 mg/dL (7-18) H Creatinine 0.8 MG/DL (0.55-1.30) Estimat Glomerular Filtration Rate > 60 mL/min (>60) Glucose Level 125 MG/DL (74-106) H Calcium Level 8.9 MG/DL (8.5-10.1) Vancomycin Level Trough 5.8 ug/mL (5.0-12.0) Arterial Blood pH 7.370 (7.350-7.450) Arterial Blood Partial Pressure CO2 56.9 mmHg (35.0-45.0) *H Arterial Blood Partial Pressure O2 67.9 mmHg (75.0-100.0) L Arterial Blood HCO3 32.8 mmol/L (22.0-26.0) H Arterial Blood Oxygen Saturation 91.9 % (92.0-98.0) L Arterial Blood Base Excess 5.9 Edvin Test Positive Current Medications Medications (Trade) Dose Ordered Sig/Shine Route PRN Reason Start Time Stop Time Status Last Admin Dose Admin Acetaminophen (Tylenol) 650 mg Q4H PRN ORAL Mild Pain (Pain Scale 1-3) 06/17/17 09:00 07/15/17 08:59 Acetaminophen/ Hydrocodone Bitart ([place] 5/325) 1 tab Q4H PRN ORAL Moderate Pain (Pain Scale 4-6) 06/17/17 08:00 06/23/17 19:59 Azithromycin 500 mg/Dextrose 275 ml @ 275 mls/hr Q24H IV 06/17/17 09:30 06/24/17 09:29 06/17/17 12:31 Cefepime HCl 2 gm/ Dextrose 55 ml @ 110 mls/hr EVERY 12 HOURS IVPB 06/17/17 10:00 06/18/17 20:59 06/17/17 10:35 Cefepime HCl 2 gm/ Dextrose 110 ml @ 220 mls/hr EVERY 12 HOURS IVPB 06/18/17 21:00 06/25/17 20:59 Diphenhydramine HCl (Benadryl) 25 mg Q6H PRN ORAL Itching/Pruritis 06/17/17 09:00 07/15/17 14:59 Furosemide (Lasix) 40 mg EVERY 12 HOURS IV 06/17/17 14:00 07/17/17 13:59 06/17/17 13:20 Heparin Sodium (Porcine) (Heparin 5000 units/ml) 5,000 units EVERY 12 HOURS SUBQ 06/17/17 09:30 07/16/17 09:29 06/17/17 10:21 Levalbuterol HCl (Xopenex) 1.25 mg TIDRT HHN 06/17/17 13:00 06/22/17 06:59 06/17/17 12:48 Lorazepam (Ativan) 1 mg Q4H PRN ORAL For Anxiety 06/17/17 09:00 06/22/17 08:59 Ondansetron HCl (Zofran) 4 mg Q6H PRN IVP Nausea & Vomiting 06/17/17 09:00 07/15/17 14:59 Pantoprazole (Protonix) 40 mg DAILY ORAL 06/17/17 09:30 07/17/17 09:29 Vancomycin HCl (Vanco rx to dose) 1 ea DAILY PRN MISC Per rx protocol 06/17/17 09:00 07/16/17 14:59 Vancomycin HCl/ Dextrose 250 ml @ 125 mls/hr Q8H IVPB 06/17/17 12:00 06/22/17 03:59 06/17/17 14:19 Zolpidem Tartrate (Ambien) 5 mg HSPRN PRN ORAL Insomnia 06/17/17 09:30 06/23/17 09:29 Gregg Mckenna M.D. Jun 17, 2017 15:17
--- NOTE | 2017-06-17 15:17 | Nephrology Progress Note ---
Assessment/Plan Problem List: (1) COPD (chronic obstructive pulmonary disease) (2) Acute respiratory failure (3) Sepsis (4) HTN (hypertension) (5) HCAP (healthcare-associated pneumonia) (6) Cellulitis and abscess of lower extremity (7) Dyspnea (8) Pneumonia Subjective Subjective on BiPAP. Objective Objective Last 24 Hour Vital Signs Date Time Temp Pulse Resp B/P (MAP) Pulse Ox O2 Delivery O2 Flow Rate FiO2 06/17/17 13:12 133 32 95 Facial 30 06/17/17 12:58 133 22 95 Bi-pap 30 06/17/17 12:48 130 24 92 Nasal Cannula 2.0 28 06/17/17 12:36 97.0 116 19 133/81 94 Nasal Cannula 2.0 06/17/17 12:01 110 06/17/17 10:45 117 26 95 Facial 30 06/17/17 10:00 121 27 93 Facial 30 06/17/17 07:58 120 06/17/17 07:56 97.0 130 19 130/100 94 Nasal Cannula 2.0 06/17/17 07:32 Nasal Cannula 2.0 28 06/17/17 07:32 92 Nasal Cannula 2.0 28 06/17/17 07:32 111 20 Nasal Cannula 2.0 28 06/17/17 07:19 98.7 127 19 124/91 86 06/17/17 04:00 97.9 117 19 120/80 93 06/17/17 00:00 98.0 118 20 127/93 94 Nasal Cannula 2.0 06/17/17 00:00 98.1 118 20 127/93 94 06/16/17 21:20 127 20 94 Nasal Cannula 2.0 28 06/16/17 20:00 98.4 117 20 114/83 94 06/16/17 19:58 94 Nasal Cannula 2.0 28 06/16/17 19:58 Nasal Cannula 2.0 28 06/16/17 19:57 121 20 Nasal Cannula 2.0 28 06/16/17 17:20 110 20 94 Nasal Cannula 2.0 06/16/17 16:10 94 Nasal Cannula 2.0 06/16/17 16:10 98.4 117 20 136/98 94 Intake and Output 06/16/17 06/17/17 19:00 07:00 Intake Total 200 ml Balance 200 ml Intake Oral 200 ml # Voids 5 # Bowel Movements 1 Laboratory Tests 06/17/17 02:45: White Blood Count 11.4H, Red Blood Count 4.36L, Hemoglobin 14.3, Hematocrit 42.9 , Mean Corpuscular Volume 98, Mean Corpuscular Hemoglobin 32.7H, Mean Corpuscular Hemoglobin Concent 33.3, Red Cell Distribution Width 12.9, Platelet Count 188, Mean Platelet Volume 7.8, Neutrophils (%) (Auto) , Lymphocytes (%) ( Auto) , Monocytes (%) (Auto) , Eosinophils (%) (Auto) , Basophils (%) (Auto) , Differential Total Cells Counted 100, Neutrophils % (Manual) 92H, Lymphocytes % (Manual) 6L, Monocytes % (Manual) 2, Eosinophils % (Manual) 0, Basophils % ( Manual) 0, Band Neutrophils 0, Platelet Estimate Adequate, Platelet Morphology Normal, Sodium Level 142, Potassium Level 3.6, Chloride Level 102, Carbon Dioxide Level 34H, Anion Gap 6, Blood Urea Nitrogen 24H, Creatinine 0.8, Estimat Glomerular Filtration Rate > 60, Glucose Level 125H, Calcium Level 8.9, Vancomycin Level Trough 5.8 06/17/17 08:28: Arterial Blood pH 7.370, Arterial Blood Partial Pressure CO2 56.9*H, Arterial Blood Partial Pressure O2 67.9L, Arterial Blood HCO3 32.8H, Arterial Blood Oxygen Saturation 91.9L, Arterial Blood Base Excess 5.9, Edvin Test Positive Height (Feet): 6 Height (Inches): 1.00 Weight (Pounds): 260 General Appearance: no apparent distress Cardiovascular: normal rate, regular rhythm Respiratory/Chest: decreased breath sounds, rhonchi - bilaterally Abdomen: non tender, soft Extremities: moderate edema Neurologic: alert, responsive ANGELICA MCGHEE Jun 17, 2017 15:17
[2017-06-17] MEDS ORDERED: Tubing IV Secondary IV ONE (16:46)
[2017-06-17] MEDS ORDERED: NS 275ml ONE (16:46)
[2017-06-18] VITALS: BP 108/79
[2017-06-18 04:00] VITALS: BP 110/74
[2017-06-18 04:37] LABS: ANION GAP 4 mmol/L (5-15); BLOOD UREA NITROGEN 23 mg/dL (7-18); CALCIUM 8.6 MG/DL (8.5-10.1); CARBON DIOXIDE 37 MMOL/L (21-32); CHLORIDE 101 MMOL/L (98-107); CREATININE 0.8 MG/DL (0.55-1.30); POTASSIUM 3.3 MMOL/L (3.5-5.1); SODIUM 142 MMOL/L (136-145)
[2017-06-18] MEDS: Vancomycin 1.5gm/D5W 250ml 250 ML IVPB SCH ×3 (05:25→23:14)
[2017-06-18] MEDS: Levalbuterol Inh UD 1.25mg/0.5ml HHN SCH ×3 (07:04→19:50)
[2017-06-18 08:00] VITALS: BP 116/78
--- NOTE | 2017-06-18 09:32 | Diagnostic Imaging Report ---
APPROVED REPORT CPT Code: 85069 Present Symptoms Lower Extremity Pain: Bilateral BILATERAL: Imaging reveals a patent deep venous system bilaterally. There is no evidence of thrombus within the femoral, popliteal or tibial segments. The greater saphenous veins are also within normal limits. Doppler indicates normal spontaneous flow within these segments.
[2017-06-18] MEDS: Cefepime HCl 2 GM in D5W 55 ML IVPB SCH (09:34)
[2017-06-18] MEDS: Heparin 5000 units/ml inj SUBQ SCH ×2 (09:35→21:21)
--- NOTE | 2017-06-18 09:51 | Diagnostic Imaging Report ---
Indication: Shortness of breath Technique: XRAY Chest 1v Comparison:06/14/2017 Findings: Compared to previous study there is marked decrease in airspace disease bilaterally. Interstitial disease remains however. No other change. Impression: Decrease in airspace disease bilaterally consistent with decreased pulmonary edema or pneumonia.
--- NOTE | 2017-06-18 10:03 | Pulmonology Progress Note ---
Assessment/Plan Assessment/Plan ASSESSMENT AND RECOMMENDATION: 1. Pneumonia with diffuse patchy infiltrate, left worse than right. agree with vancomycin and cefepime empiric coverage. Continue Zithromax for atypical coverage and screen for influenza. Latest CXR is better. 2. Bilateral lower extremity cellulitis. continue antibiotics 3. Sepsis due to the above. continue antibiotics 4. Chronic obstructive pulmonary disease Continue nebulizer and oxygen therapy. No longer on BIPAP More awake Discussed with RN Subjective Interval Events: Off BiPAP; doing better Constitutional: Reports: no symptoms HEENT: Repors: no symptoms Respiratory: Reports: no symptoms Cardiovascular: Reports: no symptoms Gastrointestinal/Abdominal: Reports: no symptoms Allergies: Coded Allergies: Cultivated Oat Pollen (Verified Allergy, Unknown, 05/01/17) IODINE AND IODIDE CONTAINING PRODUC (Verified Allergy, Unknown, 05/01/17) PENICILLINS (Verified Allergy, Unknown, 05/02/17) Soy Protein (Verified Allergy, Unknown, 05/01/17) Objective Last 24 Hour Vital Signs Date Time Temp Pulse Resp B/P (MAP) Pulse Ox O2 Delivery O2 Flow Rate FiO2 06/18/17 08:00 97.7 106 18 116/78 93 06/18/17 07:34 35 06/18/17 07:34 100 22 96 Bi-pap 35 06/18/17 07:07 110 20 94 Bi-pap 35 06/18/17 07:05 104 20 94 Facial 35 06/18/17 07:05 Bi-pap 35 06/18/17 07:04 94 Bi-pap 35 06/18/17 07:04 111 27 Bi-pap 35 06/18/17 05:02 93 20 92 Facial 35 06/18/17 04:00 98.0 93 20 110/74 92 Bi-pap 06/18/17 04:00 95 06/18/17 02:54 99 20 90 Facial 35 06/18/17 01:13 100 20 93 2.0 35 06/18/17 00:00 97.9 103 20 108/79 93 Bi-pap 06/18/17 00:00 105 06/17/17 23:29 106 20 92 Facial 2.0 35 06/17/17 21:34 107 20 93 Facial 2.0 35 06/17/17 20:32 35 06/17/17 20:31 116 20 94 Bi-pap 35 06/17/17 20:10 97.7 116 20 120/84 93 Bi-pap 06/17/17 20:00 111 06/17/17 19:13 118 27 94 Facial 2.0 35 06/17/17 19:12 Bi-pap 35 06/17/17 19:11 94 35 06/17/17 19:10 118 27 35 06/17/17 17:29 118 27 94 Facial 35 06/17/17 16:00 97.0 108 19 136/68 94 Nasal Cannula 2.0 06/17/17 15:43 112 06/17/17 15:41 110 28 92 Facial 35 06/17/17 13:12 133 32 95 Facial 30 06/17/17 12:58 133 22 95 Bi-pap 30 06/17/17 12:48 130 24 92 Nasal Cannula 2.0 28 06/17/17 12:36 97.0 116 19 133/81 94 Nasal Cannula 2.0 06/17/17 12:01 110 06/17/17 10:45 117 26 95 Facial 30 Intake and Output 06/17/17 06/18/17 19:00 07:00 Intake Total 940 ml 60 ml Output Total 2000 ml 1700 ml Balance -1060 ml -1640 ml Intake Oral 940 ml 60 ml Output Urine Total 2000 ml 1700 ml # Voids 3 General Appearance: no acute distress HEENT: normocephalic Respiratory/Chest: chest wall non-tender, lungs clear Cardiovascular: normal peripheral pulses, normal rate Abdomen: normal bowel sounds, soft, non tender Microbiology Date/Time Source Procedure Growth Status 06/18/17 01:00 Nasal Nares Influenza Types A,B Antigen (ARLET) - Final Complete Laboratory Tests 06/17/17 14:28: Troponin I 0.084H 06/18/17 03:15: Sodium Level 142, Potassium Level 3.3L, Chloride Level 101, Carbon Dioxide Level 37H, Anion Gap 4L, Blood Urea Nitrogen 23H, Creatinine 0.8, Estimat Glomerular Filtration Rate > 60, Glucose Level 114H, Calcium Level 8.6, Vancomycin Level Trough 16.9H Current Medications Medications (Trade) Dose Ordered Sig/Shine Route PRN Reason Start Time Stop Time Status Last Admin Dose Admin Acetaminophen (Tylenol) 650 mg Q4H PRN ORAL Mild Pain (Pain Scale 1-3) 06/17/17 09:00 07/15/17 08:59 Acetaminophen/ Hydrocodone Bitart ([place] 5/325) 1 tab Q4H PRN ORAL Moderate Pain (Pain Scale 4-6) 06/17/17 08:00 06/23/17 19:59 Azithromycin 500 mg/Dextrose 275 ml @ 275 mls/hr Q24H IV 06/17/17 09:30 06/24/17 09:29 06/17/17 12:31 Cefepime HCl 2 gm/ Dextrose 55 ml @ 110 mls/hr EVERY 12 HOURS IVPB 06/17/17 10:00 06/18/17 20:59 06/18/17 09:34 Cefepime HCl 2 gm/ Dextrose 110 ml @ 220 mls/hr EVERY 12 HOURS IVPB 06/18/17 21:00 06/25/17 20:59 Diphenhydramine HCl (Benadryl) 25 mg Q6H PRN ORAL Itching/Pruritis 06/17/17 09:00 07/15/17 14:59 Furosemide (Lasix) 40 mg EVERY 12 HOURS IV 06/17/17 14:00 07/17/17 13:59 06/18/17 09:31 Heparin Sodium (Porcine) (Heparin 5000 units/ml) 5,000 units EVERY 12 HOURS SUBQ 06/17/17 09:30 07/16/17 09:29 06/18/17 09:35 Levalbuterol HCl (Xopenex) 1.25 mg TIDRT HHN 06/17/17 13:00 06/22/17 06:59 06/18/17 07:04 Lorazepam (Ativan) 1 mg Q4H PRN ORAL For Anxiety 06/17/17 09:00 06/22/17 08:59 Ondansetron HCl (Zofran) 4 mg Q6H PRN IVP Nausea & Vomiting 06/17/17 09:00 07/15/17 14:59 Pantoprazole (Protonix) 40 mg DAILY ORAL 06/17/17 09:30 07/17/17 09:29 06/18/17 09:30 Vancomycin HCl (Vanco rx to dose) 1 ea DAILY PRN MISC Per rx protocol 06/17/17 09:00 07/16/17 14:59 Vancomycin HCl/ Dextrose 250 ml @ 125 mls/hr Q8H IVPB 1/20/18 12:00 06/22/17 03:59 06/18/17 05:25 Zolpidem Tartrate (Ambien) 5 mg HSPRN PRN ORAL Insomnia 06/17/17 09:30 06/23/17 09:29 Osmel Barnes MD Jun 18, 2017 10:03
[2017-06-18 12:00] VITALS: BP 104/71
--- NOTE | 2017-06-18 13:24 | Cardiac Electrophysiology PN ---
Assessment/Plan Assessment/Plan 1. Shortness of breath due to CHF and chronic obstructive pulmonary disease. Ecgho Nl EF. Continue Lasix 40 mg IV twice a day. . 2. Complete left bundle-branch block without syncope. 3. Sinus Tachycardia. No atrial fib or SVT. Due to COPD and large left sided PNA 4. Chronic obstructive pulmonary disease and pneumonia, on IV antibiotics per Dr. Heck as well as Dr. Mckenna. 5. Cellulitis of lower extremities. ABDULKADIR RN Subjective Subjective On tele, sitter at bedside. In Sinus tach 100-115 Objective Last 24 Hour Vital Signs Date Time Temp Pulse Resp B/P (MAP) Pulse Ox O2 Delivery O2 Flow Rate FiO2 06/18/17 08:00 97.7 106 18 116/78 93 06/18/17 07:34 35 06/18/17 07:34 100 22 96 Bi-pap 35 06/18/17 07:07 110 20 94 Bi-pap 35 06/18/17 07:05 104 20 94 Facial 35 06/18/17 07:05 Bi-pap 35 06/18/17 07:04 94 Bi-pap 35 06/18/17 07:04 111 27 Bi-pap 35 06/18/17 05:02 93 20 92 Facial 35 06/18/17 04:00 98.0 93 20 110/74 92 Bi-pap 06/18/17 04:00 95 06/18/17 02:54 99 20 90 Facial 35 06/18/17 01:13 100 20 93 2.0 35 06/18/17 00:00 97.9 103 20 108/79 93 Bi-pap 06/18/17 00:00 105 06/17/17 23:29 106 20 92 Facial 2.0 35 06/17/17 21:34 107 20 93 Facial 2.0 35 06/17/17 20:32 35 06/17/17 20:31 116 20 94 Bi-pap 35 06/17/17 20:10 97.7 116 20 120/84 93 Bi-pap 06/17/17 20:00 111 06/17/17 19:13 118 27 94 Facial 2.0 35 06/17/17 19:12 Bi-pap 35 06/17/17 19:11 94 35 06/17/17 19:10 118 27 35 06/17/17 17:29 118 27 94 Facial 35 06/17/17 16:00 97.0 108 19 136/68 94 Nasal Cannula 2.0 06/17/17 15:43 112 06/17/17 15:41 110 28 92 Facial 35 Intake and Output 06/17/17 06/18/17 19:00 07:00 Intake Total 940 ml 60 ml Output Total 2000 ml 1700 ml Balance -1060 ml -1640 ml Intake Oral 940 ml 60 ml Output Urine Total 2000 ml 1700 ml # Voids 3 Laboratory Tests Test 06/17/17 14:28 06/18/17 03:15 Troponin I 0.084 ng/mL (0.000-0.056) Sodium Level 142 MMOL/L (136-145) Potassium Level 3.3 MMOL/L (3.5-5.1) L Chloride Level 101 MMOL/L (98-107) Carbon Dioxide Level 37 MMOL/L (21-32) H Anion Gap 4 mmol/L (5-15) L Blood Urea Nitrogen 23 mg/dL (7-18) H Creatinine 0.8 MG/DL (0.55-1.30) Estimat Glomerular Filtration Rate > 60 mL/min (>60) Glucose Level 114 MG/DL (74-106) H Calcium Level 8.6 MG/DL (8.5-10.1) Vancomycin Level Trough 16.9 ug/mL (5.0-12.0) H Microbiology Date/Time Source Procedure Growth Status 06/18/17 01:00 Nasal Nares Influenza Types A,B Antigen (ARLET) - Final Complete Objective HEAD AND NECK: Positive JVD.BIPAP. LUNGS: Decreased breath sounds. CARDIOVASCULAR: Tachycardic S1 and S2 with no gallop or murmur. ABDOMEN: Obese. EXTREMITIES: 2+ pitting edema. ASHOK ROSS Jun 18, 2017 13:23
[2017-06-18] MEDS: Azithromycin 500 MG in D5W 275 ML IV SCH (13:38)
[2017-06-18] MEDS ORDERED: Haloperidol 5mg/ml Inj IM PRN (15:45)
[2017-06-18 16:00] VITALS: BP 107/73
--- NOTE | 2017-06-18 16:09 | Infectious Diseases Prog Note ---
Assessment/Plan Problems: (1) HCAP (healthcare-associated pneumonia) Assessment & Plan: with diffuse patchy infiltrates left worse, than right, already on vancomycin and cefepime empiric coverage, and zithromax for atypical organisms coverage , not febrile, with mildly elevated WBC, and negative blood culture , suspect fluids overload on top, will repeat CXR to confirm. continue current antibiotics, obtain sputum culture (2) Cellulitis and abscess of lower extremity Assessment & Plan: already on vancomycin and cefepime (3) Sepsis Assessment & Plan: less likely, with negative blood culture , already on vancomycin and cefepime , pending blood culture (4) Acute respiratory failure Assessment & Plan: suspect fluids overload on top , and pneumonia , now on BIPAP, for breathing support , will repeat CXR to confirm , and order troponin level , cardiology is following , recommend pulmonary consult . (5) COPD (chronic obstructive pulmonary disease) Assessment & Plan: with exacerbation due to the above , continue nebulizers and oxygen therapy Subjective ROS Limited/Unobtainable: Yes Allergies: Coded Allergies: Cultivated Oat Pollen (Verified Allergy, Unknown, 05/01/17) IODINE AND IODIDE CONTAINING PRODUC (Verified Allergy, Unknown, 05/01/17) PENICILLINS (Verified Allergy, Unknown, 05/02/17) Soy Protein (Verified Allergy, Unknown, 05/01/17) Subjective he was still confused, off BIPAP, not febrile, no cough or phlegm, mild SOB, sating well on nasal canula Objective Vital Signs Last 24 Hour Vital Signs Date Time Temp Pulse Resp B/P (MAP) Pulse Ox O2 Delivery O2 Flow Rate FiO2 06/18/17 14:24 117 22 98 Bi-pap 35 06/18/17 14:16 117 20 94 Nasal Cannula 2.0 28 06/18/17 12:00 109 06/18/17 08:00 111 06/18/17 08:00 97.7 106 18 116/78 93 06/18/17 07:34 35 06/18/17 07:34 100 22 96 Bi-pap 35 06/18/17 07:07 110 20 94 Bi-pap 35 06/18/17 07:05 104 20 94 Facial 35 06/18/17 07:05 Bi-pap 35 06/18/17 07:04 94 Bi-pap 35 06/18/17 07:04 111 27 Bi-pap 35 06/18/17 05:02 93 20 92 Facial 35 06/18/17 04:00 98.0 93 20 110/74 92 Bi-pap 06/18/17 04:00 95 06/18/17 02:54 99 20 90 Facial 35 06/18/17 01:13 100 20 93 2.0 35 06/18/17 00:00 97.9 103 20 108/79 93 Bi-pap 06/18/17 00:00 105 06/17/17 23:29 106 20 92 Facial 2.0 35 06/17/17 21:34 107 20 93 Facial 2.0 35 06/17/17 20:32 35 06/17/17 20:31 116 20 94 Bi-pap 35 06/17/17 20:10 97.7 116 20 120/84 93 Bi-pap 06/17/17 20:00 111 06/17/17 19:13 118 27 94 Facial 2.0 35 06/17/17 19:12 Bi-pap 35 06/17/17 19:11 94 35 06/17/17 19:10 118 27 35 06/17/17 17:29 118 27 94 Facial 35 Height (Feet): 6 Height (Inches): 1.00 Weight (Pounds): 260 General Appearance: WD/WN, no acute distress HEENT: normocephalic, atraumatic, anicteric, mucous membranes moist, PERRL Respiratory/Chest: chest wall non-tender, no respiratory distress, no accessory muscle use, decreased breath sounds, crackles/rales Cardiovascular: normal peripheral pulses, normal rate, regular rhythm, no gallop/murmur, no JVD Abdomen: normal bowel sounds, soft, non tender, no organomegaly, non distended , no mass, no scars Extremities: no cyanosis, no clubbing, other - stasis dermatitis Skin: no lesions, ulcers, other - cellulitis Neurologic/Psychiatric: alert, other - confused Lymphatic: no neck adenopathy, no groin adenopathy Microbiology Date/Time Source Procedure Growth Status 06/18/17 01:00 Nasal Nares Influenza Types A,B Antigen (ARLET) - Final Complete Laboratory Tests Test 06/18/17 03:15 Sodium Level 142 MMOL/L (136-145) Potassium Level 3.3 MMOL/L (3.5-5.1) L Chloride Level 101 MMOL/L (98-107) Carbon Dioxide Level 37 MMOL/L (21-32) H Anion Gap 4 mmol/L (5-15) L Blood Urea Nitrogen 23 mg/dL (7-18) H Creatinine 0.8 MG/DL (0.55-1.30) Estimat Glomerular Filtration Rate > 60 mL/min (>60) Glucose Level 114 MG/DL (74-106) H Calcium Level 8.6 MG/DL (8.5-10.1) Vancomycin Level Trough 16.9 ug/mL (5.0-12.0) H Current Medications Medications (Trade) Dose Ordered Sig/Shine Route PRN Reason Start Time Stop Time Status Last Admin Dose Admin Acetaminophen (Tylenol) 650 mg Q4H PRN ORAL Mild Pain (Pain Scale 1-3) 06/17/17 09:00 07/15/17 08:59 Acetaminophen/ Hydrocodone Bitart ([place] 5/325) 1 tab Q4H PRN ORAL Moderate Pain (Pain Scale 4-6) 06/17/17 08:00 06/23/17 19:59 Azithromycin 500 mg/Dextrose 275 ml @ 275 mls/hr Q24H IV 06/18/17 12:00 06/21/17 12:59 06/18/17 13:38 Cefepime HCl 2 gm/ Dextrose 55 ml @ 110 mls/hr EVERY 12 HOURS IVPB 06/17/17 10:00 06/18/17 20:59 06/18/17 09:34 Cefepime HCl 2 gm/ Dextrose 110 ml @ 220 mls/hr EVERY 12 HOURS IVPB 06/18/17 21:00 06/25/17 20:59 Diphenhydramine HCl (Benadryl) 25 mg Q6H PRN ORAL Itching/Pruritis 06/17/17 09:00 07/15/17 14:59 Furosemide (Lasix) 40 mg EVERY 12 HOURS IV 06/17/17 14:00 07/17/17 13:59 06/18/17 09:31 Haloperidol Lactate (Haldol) 5 mg Q6H PRN IM Agitation 06/18/17 15:45 07/18/17 15:44 Heparin Sodium (Porcine) (Heparin 5000 units/ml) 5,000 units EVERY 12 HOURS SUBQ 06/17/17 09:30 07/16/17 09:29 06/18/17 09:35 Levalbuterol HCl (Xopenex) 1.25 mg TIDRT HHN 06/17/17 13:00 06/22/17 06:59 06/18/17 14:15 Lorazepam (Ativan) 1 mg Q4H PRN ORAL For Anxiety 06/17/17 09:00 06/22/17 08:59 Ondansetron HCl (Zofran) 4 mg Q6H PRN IVP Nausea & Vomiting 06/17/17 09:00 07/15/17 14:59 Pantoprazole (Protonix) 40 mg DAILY ORAL 06/17/17 09:30 07/17/17 09:29 06/18/17 09:30 Risperidone (RisperDAL) 2 mg QHS ORAL 06/18/17 21:00 07/18/17 20:59 Vancomycin HCl (Vanco rx to dose) 1 ea DAILY PRN MISC Per rx protocol 06/17/17 09:00 07/16/17 14:59 Vancomycin HCl/ Dextrose 250 ml @ 125 mls/hr Q8H IVPB 06/17/17 12:00 06/22/17 03:59 06/18/17 15:34 Zolpidem Tartrate (Ambien) 5 mg HSPRN PRN ORAL Insomnia 06/17/17 09:30 06/23/17 09:29 Gregg Mckenna M.D. Jun 18, 2017 16:09
[2017-06-18 20:01] VITALS: BP 108/68
[2017-06-18] MEDS: Cefepime HCl 2 GM in D5W 110 ML IVPB SCH (21:38)
[2017-06-19 00:13] VITALS: BP 102/74
[2017-06-19 04:00] VITALS: BP 105/72
[2017-06-19] MEDS: Vancomycin 1.5gm/D5W 250ml 250 ML IVPB SCH ×3 (07:07→23:14)
[2017-06-19 08:00] VITALS: BP 97/61
[2017-06-19] MEDS: Levalbuterol Inh UD 1.25mg/0.5ml HHN SCH ×3 (08:14→21:17)
[2017-06-19] MEDS: Cefepime HCl 2 GM in D5W 110 ML IVPB SCH ×2 (09:01→21:53)
[2017-06-19] MEDS: Heparin 5000 units/ml inj SUBQ SCH ×2 (09:02→21:53)
[2017-06-19 11:30] LABS: HEMATOCRIT 41.4 % (42.0-52.0); HEMOGLOBIN 13.6 G/DL (14.2-18.0); MEAN CORPUSCULAR VOLUME 98 FL (80-99); PLATELET COUNT 244 K/UL (150-450); RED BLOOD COUNT 4.22 M/UL (4.70-6.10); RED CELL DISTRIBUTION WIDTH 12.9 % (11.6-14.8); WHITE BLOOD COUNT 10.7 K/UL (4.8-10.8)
[2017-06-19 11:42] LABS: ALANINE AMINOTRANSFERASE 42 U/L (12-78); ALBUMIN 1.9 G/DL (3.4-5.0); ALBUMIN/GLOBULIN RATIO 0.5 (1.0-2.7); ALKALINE PHOSPHATASE 83 U/L (46-116); ANION GAP 3 mmol/L (5-15); ASPARTATE AMINO TRANSFERASE 26 U/L (15-37); BLOOD UREA NITROGEN 20 mg/dL (7-18); CALCIUM 8.5 MG/DL (8.5-10.1); CARBON DIOXIDE 39 MMOL/L (21-32); CHLORIDE 100 MMOL/L (98-107); CREATININE 0.9 MG/DL (0.55-1.30); POTASSIUM 3.1 MMOL/L (3.5-5.1); SODIUM 142 MMOL/L (136-145)
--- NOTE | 2017-06-19 11:47 | Pulmonology Progress Note ---
Assessment/Plan Assessment/Plan ASSESSMENT AND RECOMMENDATION: 1. Pneumonia with diffuse patchy infiltrate, left worse than right. agree with vancomycin and cefepime empiric coverage. Continue Zithromax for atypical coverage and screen for influenza. Latest CXR is better. 2. Bilateral lower extremity cellulitis. continue antibiotics 3. Sepsis due to the above. continue antibiotics 4. Chronic obstructive pulmonary disease Continue nebulizer and oxygen therapy. No longer on BIPAP More awake Discussed with RN agree with potassium replacement Continue nighttime BiPAP. Subjective Interval Events: used BiPAP lastnight. Feeling better. Constitutional: Reports: no symptoms HEENT: Repors: no symptoms Respiratory: Reports: no symptoms Cardiovascular: Reports: no symptoms Gastrointestinal/Abdominal: Reports: no symptoms Genitourinary: Reports: no symptoms Allergies: Coded Allergies: Cultivated Oat Pollen (Verified Allergy, Unknown, 05/01/17) IODINE AND IODIDE CONTAINING PRODUC (Verified Allergy, Unknown, 05/01/17) PENICILLINS (Verified Allergy, Unknown, 05/02/17) Soy Protein (Verified Allergy, Unknown, 05/01/17) Objective Last 24 Hour Vital Signs Date Time Temp Pulse Resp B/P (MAP) Pulse Ox O2 Delivery O2 Flow Rate FiO2 06/19/17 08:00 97.5 107 20 97/61 95 Nasal Cannula 4.0 06/19/17 07:59 88 20 96 Nasal Cannula 2.0 28 06/19/17 07:58 Nasal Cannula 2.0 28 06/19/17 07:50 80 20 93 Nasal Cannula 2.0 28 06/19/17 07:49 93 Nasal Cannula 2.0 28 06/19/17 05:00 97 28 99 Facial 35 06/19/17 04:00 97.0 73 20 105/72 93 Bi-pap 06/19/17 04:00 93 06/19/17 03:10 100 28 99 Facial 35 06/19/17 00:44 101 26 99 Facial 35 06/19/17 00:13 97.0 105 20 102/74 94 Bi-pap 06/19/17 00:00 99 06/18/17 23:09 98 30 99 Facial 35 06/18/17 20:01 97.8 117 20 108/68 93 Nasal Cannula 06/18/17 20:00 118 22 98 Nasal Cannula 2.0 06/18/17 20:00 105 06/18/17 20:00 Nasal Cannula 2.0 28 06/18/17 19:51 115 20 95 Nasal Cannula 2.0 28 06/18/17 19:51 Nasal Cannula 2.0 28 06/18/17 19:51 95 Nasal Cannula 2.0 28 06/18/17 16:00 97.5 110 18 107/73 93 Nasal Cannula 4.0 06/18/17 14:24 117 22 98 Bi-pap 35 06/18/17 14:16 117 20 94 Nasal Cannula 2.0 28 06/18/17 12:00 97.9 113 18 104/71 92 Nasal Cannula 4.0 06/18/17 12:00 109 Intake and Output 06/18/17 06/19/17 19:00 07:00 Intake Total 1700 ml Output Total 550 ml 3000 ml Balance 1150 ml -3000 ml Intake Oral 1700 ml Output Urine Total 550 ml 3000 ml General Appearance: no acute distress HEENT: normocephalic Respiratory/Chest: chest wall non-tender, lungs clear Cardiovascular: normal peripheral pulses, normal rate Abdomen: normal bowel sounds Neurologic/Psychiatric: other - has ecchymosis over right eye Microbiology Date/Time Source Procedure Growth Status 06/18/17 01:00 Nasal Nares Influenza Types A,B Antigen (ARLET) - Final Complete Laboratory Tests 06/19/17 11:20: White Blood Count 10.7, Red Blood Count 4.22L, Hemoglobin 13.6L, Hematocrit 41.4L, Mean Corpuscular Volume 98, Mean Corpuscular Hemoglobin 32.2H, Mean Corpuscular Hemoglobin Concent 32.9, Red Cell Distribution Width 12.9, Platelet Count 244, Mean Platelet Volume 7.1, Neutrophils (%) (Auto) , Lymphocytes (%) ( Auto) , Monocytes (%) (Auto) , Eosinophils (%) (Auto) , Basophils (%) (Auto) , Neutrophils % (Manual) [Pending], Lymphocytes % (Manual) [Pending], Platelet Estimate [Pending], Platelet Morphology [Pending], Sodium Level 142, Potassium Level 3.1L, Chloride Level 100, Carbon Dioxide Level 39H, Anion Gap 3L, Blood Urea Nitrogen 20H, Creatinine 0.9, Estimat Glomerular Filtration Rate > 60, Glucose Level 135H, Calcium Level 8.5, Total Bilirubin [Pending], Aspartate Amino Transf (AST/SGOT) 26, Alanine Aminotransferase (ALT/SGPT) 42, Alkaline Phosphatase 83, Total Protein 6.0L, Albumin 1.9L, Globulin 4.1, Albumin/ Globulin Ratio 0.5L Current Medications Medications (Trade) Dose Ordered Sig/Shine Route PRN Reason Start Time Stop Time Status Last Admin Dose Admin Acetaminophen (Tylenol) 650 mg Q4H PRN ORAL Mild Pain (Pain Scale 1-3) 06/17/17 09:00 07/15/17 08:59 Acetaminophen/ Hydrocodone Bitart ([place] 5/325) 1 tab Q4H PRN ORAL Moderate Pain (Pain Scale 4-6) 06/17/17 08:00 06/23/17 19:59 Azithromycin 500 mg/Dextrose 275 ml @ 275 mls/hr Q24H IV 06/18/17 12:00 06/21/17 12:59 06/18/17 13:38 Cefepime HCl 2 gm/ Dextrose 110 ml @ 220 mls/hr EVERY 12 HOURS IVPB 06/18/17 21:00 06/25/17 20:59 06/19/17 09:01 Diphenhydramine HCl (Benadryl) 25 mg Q6H PRN ORAL Itching/Pruritis 06/17/17 09:00 07/15/17 14:59 Furosemide (Lasix) 40 mg EVERY 12 HOURS IV 06/17/17 14:00 07/17/17 13:59 06/19/17 11:45 Haloperidol Lactate (Haldol) 5 mg Q6H PRN IM Agitation 06/18/17 15:45 07/18/17 15:44 Heparin Sodium (Porcine) (Heparin 5000 units/ml) 5,000 units EVERY 12 HOURS SUBQ 06/17/17 09:30 07/16/17 09:29 06/19/17 09:02 Levalbuterol HCl (Xopenex) 1.25 mg TIDRT HHN 06/17/17 13:00 06/22/17 06:59 06/19/17 08:14 Lorazepam (Ativan) 1 mg Q4H PRN ORAL For Anxiety 06/17/17 09:00 06/22/17 08:59 Ondansetron HCl (Zofran) 4 mg Q6H PRN IVP Nausea & Vomiting 06/17/17 09:00 07/15/17 14:59 Pantoprazole (Protonix) 40 mg DAILY ORAL 06/17/17 09:30 07/17/17 09:29 06/19/17 09:02 Risperidone (RisperDAL) 2 mg QHS ORAL 06/18/17 21:00 07/18/17 20:59 06/18/17 21:20 Vancomycin HCl (Vanco rx to dose) 1 ea DAILY PRN MISC Per rx protocol 06/17/17 09:00 07/16/17 14:59 Vancomycin HCl/ Dextrose 250 ml @ 125 mls/hr Q8H IVPB 06/17/17 12:00 06/22/17 03:59 06/19/17 07:07 Zolpidem Tartrate (Ambien) 5 mg HSPRN PRN ORAL Insomnia 06/17/17 09:30 06/23/17 09:29 Osmel Barnes MD Jun 19, 2017 11:47
[2017-06-19 11:56] LABS: BILIRUBIN,TOTAL 0.8 MG/DL (0.2-1.0)
[2017-06-19 11:58] VITALS: BP 112/80
[2017-06-19] MEDS: Azithromycin 500 MG in D5W 275 ML IV SCH (13:19)
--- NOTE | 2017-06-19 13:31 | Cardiac Electrophysiology PN ---
Assessment/Plan Assessment/Plan 1. Shortness of breath due to CHF, COPD and PNA. Echo Nl EF. On Lasix 40 mg IV twice a day. . 2. Complete left bundle-branch block without syncope. 3. Sinus Tachycardia. No atrial fib or SVT. Due to COPD and large left sided PNA 4. Chronic obstructive pulmonary disease and pneumonia, on IV antibiotics per Dr. Heck as well as Dr. Mckenna. 5. Cellulitis of lower extremities. ABDULKADIR RN Subjective Subjective On tele still feels SOB. In Sinus tach 100-115. Much more alert. Objective Last 24 Hour Vital Signs Date Time Temp Pulse Resp B/P (MAP) Pulse Ox O2 Delivery O2 Flow Rate FiO2 06/19/17 11:58 97.2 107 20 112/80 92 Nasal Cannula 4.0 06/19/17 08:00 97.5 107 20 97/61 95 Nasal Cannula 4.0 06/19/17 07:59 88 20 96 Nasal Cannula 2.0 28 06/19/17 07:58 Nasal Cannula 2.0 28 06/19/17 07:50 80 20 93 Nasal Cannula 2.0 28 06/19/17 07:49 93 Nasal Cannula 2.0 28 06/19/17 05:00 97 28 99 Facial 35 06/19/17 04:00 97.0 73 20 105/72 93 Bi-pap 06/19/17 04:00 93 06/19/17 03:10 100 28 99 Facial 35 06/19/17 00:44 101 26 99 Facial 35 06/19/17 00:13 97.0 105 20 102/74 94 Bi-pap 06/19/17 00:00 99 06/18/17 23:09 98 30 99 Facial 35 06/18/17 20:01 97.8 117 20 108/68 93 Nasal Cannula 06/18/17 20:00 118 22 98 Nasal Cannula 2.0 06/18/17 20:00 105 06/18/17 20:00 Nasal Cannula 2.0 28 06/18/17 19:51 115 20 95 Nasal Cannula 2.0 28 06/18/17 19:51 Nasal Cannula 2.0 28 06/18/17 19:51 95 Nasal Cannula 2.0 28 06/18/17 16:00 97.5 110 18 107/73 93 Nasal Cannula 4.0 06/18/17 14:24 117 22 98 Bi-pap 35 06/18/17 14:16 117 20 94 Nasal Cannula 2.0 28 Intake and Output 06/18/17 06/19/17 19:00 07:00 Intake Total 1700 ml Output Total 550 ml 3000 ml Balance 1150 ml -3000 ml Intake Oral 1700 ml Output Urine Total 550 ml 3000 ml Laboratory Tests Test 06/19/17 11:20 White Blood Count 10.7 K/UL (4.8-10.8) Red Blood Count 4.22 M/UL (4.70-6.10) L Hemoglobin 13.6 G/DL (14.2-18.0) L Hematocrit 41.4 % (42.0-52.0) L Mean Corpuscular Volume 98 FL (80-99) Mean Corpuscular Hemoglobin 32.2 PG (27.0-31.0) H Mean Corpuscular Hemoglobin Concent 32.9 G/DL (32.0-36.0) Red Cell Distribution Width 12.9 % (11.6-14.8) Platelet Count 244 K/UL (150-450) Mean Platelet Volume 7.1 FL (6.5-10.1) Neutrophils (%) (Auto) % (45.0-75.0) Lymphocytes (%) (Auto) % (20.0-45.0) Monocytes (%) (Auto) % (1.0-10.0) Eosinophils (%) (Auto) % (0.0-3.0) Basophils (%) (Auto) % (0.0-2.0) Differential Total Cells Counted 100 Neutrophils % (Manual) 90 % (45-75) H Lymphocytes % (Manual) 8 % (20-45) L Monocytes % (Manual) 2 % (1-10) Eosinophils % (Manual) 0 % (0-3) Basophils % (Manual) 0 % (0-2) Band Neutrophils 0 % (0-8) Platelet Estimate Adequate Platelet Morphology Normal Red Blood Cell Morphology Normal Sodium Level 142 MMOL/L (136-145) Potassium Level 3.1 MMOL/L (3.5-5.1) L Chloride Level 100 MMOL/L (98-107) Carbon Dioxide Level 39 MMOL/L (21-32) H Anion Gap 3 mmol/L (5-15) L Blood Urea Nitrogen 20 mg/dL (7-18) H Creatinine 0.9 MG/DL (0.55-1.30) Estimat Glomerular Filtration Rate > 60 mL/min (>60) Glucose Level 135 MG/DL (74-106) H Calcium Level 8.5 MG/DL (8.5-10.1) Total Bilirubin 0.8 MG/DL (0.2-1.0) Aspartate Amino Transf (AST/SGOT) 26 U/L (15-37) Alanine Aminotransferase (ALT/SGPT) 42 U/L (12-78) Alkaline Phosphatase 83 U/L (46-116) Total Protein 6.0 G/DL (6.4-8.2) L Albumin 1.9 G/DL (3.4-5.0) L Globulin 4.1 g/dL Albumin/Globulin Ratio 0.5 (1.0-2.7) L Microbiology Date/Time Source Procedure Growth Status 06/18/17 01:00 Nasal Nares Influenza Types A,B Antigen (ARLET) - Final Complete Objective HEAD AND NECK: Positive JVD. Right eye ecchymotic LUNGS: Decreased breath sounds. CARDIOVASCULAR: Tachycardic S1 and S2 with no gallop or murmur. ABDOMEN: Obese. EXTREMITIES: 2+ pitting edema. ASHOK ROSS Jun 19, 2017 13:31
--- NOTE | 2017-06-19 15:33 | Infectious Diseases Prog Note ---
Assessment/Plan Problems: (1) HCAP (healthcare-associated pneumonia) Assessment & Plan: with diffuse patchy infiltrates left worse, than right, already on vancomycin and cefepime empiric coverage, and zithromax for atypical organisms coverage , not febrile, with mildly elevated WBC, and negative blood culture , suspect fluids overload on top, will repeat CXR to confirm. continue current antibiotics, obtain sputum culture (2) Cellulitis and abscess of lower extremity Assessment & Plan: already on vancomycin and cefepime (3) Sepsis Assessment & Plan: less likely, with negative blood culture , already on vancomycin and cefepime , pending blood culture (4) Acute respiratory failure Assessment & Plan: suspect fluids overload on top , and pneumonia , now on BIPAP, for breathing support , will repeat CXR to confirm , and order troponin level , cardiology is following , recommend pulmonary consult . (5) COPD (chronic obstructive pulmonary disease) Assessment & Plan: with exacerbation due to the above , continue nebulizers and oxygen therapy Subjective Constitutional: Reports: no symptoms HEENT: Reports: no symptoms Respiratory: Reports: productive cough Breasts: Reports: no symptoms Cardiovascular: Reports: no symptoms Gastrointestinal/Abdominal: Reports: no symptoms Genitourinary: Reports: no symptoms Neurologic: Reports: no symptoms Psychiatric: Reports: no symptoms Skin: Reports: no symptoms Endocrine: Reports: no symptoms Hematologic: Reports: no symptoms Musculoskeletal: Reports: no symptoms Allergies: Coded Allergies: Cultivated Oat Pollen (Verified Allergy, Unknown, 05/01/17) IODINE AND IODIDE CONTAINING PRODUC (Verified Allergy, Unknown, 05/01/17) PENICILLINS (Verified Allergy, Unknown, 05/02/17) Soy Protein (Verified Allergy, Unknown, 05/01/17) Subjective he was still confused, off BIPAP, not febrile, no cough or phlegm, mild SOB, sating well on nasal canula Objective Vital Signs Last 24 Hour Vital Signs Date Time Temp Pulse Resp B/P (MAP) Pulse Ox O2 Delivery O2 Flow Rate FiO2 06/19/17 13:45 121 20 Nasal Cannula 3.0 32 06/19/17 13:35 115 20 Nasal Cannula 3.0 32 06/19/17 11:58 97.2 107 20 112/80 92 Nasal Cannula 4.0 06/19/17 08:00 97.5 107 20 97/61 95 Nasal Cannula 4.0 06/19/17 07:59 88 20 96 Nasal Cannula 2.0 28 06/19/17 07:58 Nasal Cannula 2.0 28 06/19/17 07:50 80 20 93 Nasal Cannula 2.0 28 06/19/17 07:49 93 Nasal Cannula 2.0 28 06/19/17 05:00 97 28 99 Facial 35 06/19/17 04:00 97.0 73 20 105/72 93 Bi-pap 06/19/17 04:00 93 06/19/17 03:10 100 28 99 Facial 35 06/19/17 00:44 101 26 99 Facial 35 06/19/17 00:13 97.0 105 20 102/74 94 Bi-pap 06/19/17 00:00 99 06/18/17 23:09 98 30 99 Facial 35 06/18/17 20:01 97.8 117 20 108/68 93 Nasal Cannula 06/18/17 20:00 118 22 98 Nasal Cannula 2.0 06/18/17 20:00 105 06/18/17 20:00 Nasal Cannula 2.0 28 06/18/17 19:51 115 20 95 Nasal Cannula 2.0 28 06/18/17 19:51 Nasal Cannula 2.0 28 06/18/17 19:51 95 Nasal Cannula 2.0 28 06/18/17 16:00 97.5 110 18 107/73 93 Nasal Cannula 4.0 Height (Feet): 6 Height (Inches): 1.00 Weight (Pounds): 260 General Appearance: WD/WN, no acute distress HEENT: normocephalic, atraumatic, anicteric, mucous membranes moist, PERRL, EOMI, pharynx normal, supple, no JVD Respiratory/Chest: chest wall non-tender, no respiratory distress, no accessory muscle use, decreased breath sounds, crackles/rales Cardiovascular: normal peripheral pulses, normal rate, regular rhythm, no gallop/murmur, no JVD Abdomen: normal bowel sounds, soft, non tender, no organomegaly, non distended , no mass, no scars Extremities: no cyanosis, no clubbing Skin: no rash, no lesions, no ulcers Neurologic/Psychiatric: alert, responsive Microbiology Date/Time Source Procedure Growth Status 06/18/17 01:00 Nasal Nares Influenza Types A,B Antigen (ARLET) - Final Complete Laboratory Tests Test 06/19/17 11:20 White Blood Count 10.7 K/UL (4.8-10.8) Red Blood Count 4.22 M/UL (4.70-6.10) L Hemoglobin 13.6 G/DL (14.2-18.0) L Hematocrit 41.4 % (42.0-52.0) L Mean Corpuscular Volume 98 FL (80-99) Mean Corpuscular Hemoglobin 32.2 PG (27.0-31.0) H Mean Corpuscular Hemoglobin Concent 32.9 G/DL (32.0-36.0) Red Cell Distribution Width 12.9 % (11.6-14.8) Platelet Count 244 K/UL (150-450) Mean Platelet Volume 7.1 FL (6.5-10.1) Neutrophils (%) (Auto) % (45.0-75.0) Lymphocytes (%) (Auto) % (20.0-45.0) Monocytes (%) (Auto) % (1.0-10.0) Eosinophils (%) (Auto) % (0.0-3.0) Basophils (%) (Auto) % (0.0-2.0) Differential Total Cells Counted 100 Neutrophils % (Manual) 90 % (45-75) H Lymphocytes % (Manual) 8 % (20-45) L Monocytes % (Manual) 2 % (1-10) Eosinophils % (Manual) 0 % (0-3) Basophils % (Manual) 0 % (0-2) Band Neutrophils 0 % (0-8) Platelet Estimate Adequate Platelet Morphology Normal Red Blood Cell Morphology Normal Sodium Level 142 MMOL/L (136-145) Potassium Level 3.1 MMOL/L (3.5-5.1) L Chloride Level 100 MMOL/L (98-107) Carbon Dioxide Level 39 MMOL/L (21-32) H Anion Gap 3 mmol/L (5-15) L Blood Urea Nitrogen 20 mg/dL (7-18) H Creatinine 0.9 MG/DL (0.55-1.30) Estimat Glomerular Filtration Rate > 60 mL/min (>60) Glucose Level 135 MG/DL (74-106) H Calcium Level 8.5 MG/DL (8.5-10.1) Total Bilirubin 0.8 MG/DL (0.2-1.0) Aspartate Amino Transf (AST/SGOT) 26 U/L (15-37) Alanine Aminotransferase (ALT/SGPT) 42 U/L (12-78) Alkaline Phosphatase 83 U/L (46-116) Total Protein 6.0 G/DL (6.4-8.2) L Albumin 1.9 G/DL (3.4-5.0) L Globulin 4.1 g/dL Albumin/Globulin Ratio 0.5 (1.0-2.7) L Current Medications Medications (Trade) Dose Ordered Sig/Shine Route PRN Reason Start Time Stop Time Status Last Admin Dose Admin Acetaminophen (Tylenol) 650 mg Q4H PRN ORAL Mild Pain (Pain Scale 1-3) 06/17/17 09:00 07/15/17 08:59 Acetaminophen/ Hydrocodone Bitart ([place] 5/325) 1 tab Q4H PRN ORAL Moderate Pain (Pain Scale 4-6) 06/17/17 08:00 06/23/17 19:59 Azithromycin 500 mg/Dextrose 275 ml @ 275 mls/hr Q24H IV 06/18/17 12:00 06/21/17 12:59 06/19/17 13:19 Cefepime HCl 2 gm/ Dextrose 110 ml @ 220 mls/hr EVERY 12 HOURS IVPB 06/18/17 21:00 06/25/17 20:59 06/19/17 09:01 Diphenhydramine HCl (Benadryl) 25 mg Q6H PRN ORAL Itching/Pruritis 06/17/17 09:00 07/15/17 14:59 Furosemide (Lasix) 40 mg EVERY 12 HOURS IV 06/17/17 14:00 07/17/17 13:59 06/19/17 11:45 Haloperidol Lactate (Haldol) 5 mg Q6H PRN IM Agitation 06/18/17 15:45 07/18/17 15:44 Heparin Sodium (Porcine) (Heparin 5000 units/ml) 5,000 units EVERY 12 HOURS SUBQ 06/17/17 09:30 07/16/17 09:29 06/19/17 09:02 Levalbuterol HCl (Xopenex) 1.25 mg TIDRT HHN 06/17/17 13:00 06/22/17 06:59 06/19/17 13:42 Lorazepam (Ativan) 1 mg Q4H PRN ORAL For Anxiety 06/17/17 09:00 06/22/17 08:59 Ondansetron HCl (Zofran) 4 mg Q6H PRN IVP Nausea & Vomiting 06/17/17 09:00 07/15/17 14:59 Pantoprazole (Protonix) 40 mg DAILY ORAL 06/17/17 09:30 07/17/17 09:29 06/19/17 09:02 Risperidone (RisperDAL) 2 mg QHS ORAL 06/18/17 21:00 07/18/17 20:59 06/18/17 21:20 Vancomycin HCl (Vanco rx to dose) 1 ea DAILY PRN MISC Per rx protocol 06/17/17 09:00 07/16/17 14:59 Vancomycin HCl/ Dextrose 250 ml @ 125 mls/hr Q8H IVPB 06/17/17 12:00 06/22/17 03:59 06/19/17 07:07 Zolpidem Tartrate (Ambien) 5 mg HSPRN PRN ORAL Insomnia 06/17/17 09:30 06/23/17 09:29 Gregg Mckenna M.D. Jun 19, 2017 15:32
[2017-06-19 16:00] VITALS: BP 107/73
[2017-06-19] MEDS ORDERED: Tubing IV Secondary IV ONE (17:03)
[2017-06-19] MEDS ORDERED: NS 275ml ONE (17:03)
--- NOTE | 2017-06-19 17:08 | Nephrology Progress Note ---
Assessment/Plan Problem List: (1) Dyspnea (2) Pneumonia (3) COPD (chronic obstructive pulmonary disease) (4) Acute respiratory failure (5) Sepsis (6) HTN (hypertension) (7) Cellulitis and abscess of lower extremity Plan Continue treatment plan O2 prn Continue Neb treatment BIPAP at night Abx per ID BLE ultrasound to r/o DVT Monitor lytes, correct prn DVT prophylaxis PPI AM labs Subjective Constitutional: Denies: no symptoms, chills, diaphoresis, fever, malaise, weakness, other HEENT: Denies: no symptoms, eye pain, blurred vision, tearing, double vision, ear pain, ear discharge, nose pain, nose congestion, throat pain, throat swelling, mouth pain, mouth swelling, other Genitourinary: Denies: no symptoms, burning, discharge, frequency, flank pain, hematuria, incontinence, pain, urgency, other Neurologic/Psychiatric: Denies: no symptoms, anxiety, depressed, emotional problems, headache, numbness, paresthesia, pre-existing deficit, seizure, tingling, tremors, weakness, other Subjective In bed, in no apparent distress Objective Objective Last 24 Hour Vital Signs Date Time Temp Pulse Resp B/P (MAP) Pulse Ox O2 Delivery O2 Flow Rate FiO2 06/19/17 16:00 98.1 121 20 107/73 94 Nasal Cannula 4.0 06/19/17 13:45 121 20 Nasal Cannula 3.0 32 06/19/17 13:35 115 20 Nasal Cannula 3.0 32 06/19/17 12:00 113 06/19/17 11:58 97.2 107 20 112/80 92 Nasal Cannula 4.0 06/19/17 08:00 112 06/19/17 08:00 97.5 107 20 97/61 95 Nasal Cannula 4.0 06/19/17 07:59 88 20 96 Nasal Cannula 2.0 28 06/19/17 07:58 Nasal Cannula 2.0 28 06/19/17 07:50 80 20 93 Nasal Cannula 2.0 28 06/19/17 07:49 93 Nasal Cannula 2.0 28 06/19/17 05:00 97 28 99 Facial 35 06/19/17 04:00 97.0 73 20 105/72 93 Bi-pap 06/19/17 04:00 93 06/19/17 03:10 100 28 99 Facial 35 06/19/17 00:44 101 26 99 Facial 35 06/19/17 00:13 97.0 105 20 102/74 94 Bi-pap 06/19/17 00:00 99 06/18/17 23:09 98 30 99 Facial 35 06/18/17 20:01 97.8 117 20 108/68 93 Nasal Cannula 06/18/17 20:00 118 22 98 Nasal Cannula 2.0 06/18/17 20:00 105 06/18/17 20:00 Nasal Cannula 2.0 28 06/18/17 19:51 115 20 95 Nasal Cannula 2.0 28 06/18/17 19:51 Nasal Cannula 2.0 28 06/18/17 19:51 95 Nasal Cannula 2.0 28 Intake and Output 06/18/17 06/19/17 19:00 07:00 Intake Total 1700 ml Output Total 550 ml 3000 ml Balance 1150 ml -3000 ml Intake Oral 1700 ml Output Urine Total 550 ml 3000 ml Laboratory Tests 06/19/17 11:20: White Blood Count 10.7, Red Blood Count 4.22L, Hemoglobin 13.6L, Hematocrit 41.4L, Mean Corpuscular Volume 98, Mean Corpuscular Hemoglobin 32.2H, Mean Corpuscular Hemoglobin Concent 32.9, Red Cell Distribution Width 12.9, Platelet Count 244, Mean Platelet Volume 7.1, Neutrophils (%) (Auto) , Lymphocytes (%) ( Auto) , Monocytes (%) (Auto) , Eosinophils (%) (Auto) , Basophils (%) (Auto) , Differential Total Cells Counted 100, Neutrophils % (Manual) 90H, Lymphocytes % (Manual) 8L, Monocytes % (Manual) 2, Eosinophils % (Manual) 0, Basophils % ( Manual) 0, Band Neutrophils 0, Platelet Estimate Adequate, Platelet Morphology Normal, Red Blood Cell Morphology Normal, Sodium Level 142, Potassium Level 3.1L , Chloride Level 100, Carbon Dioxide Level 39H, Anion Gap 3L, Blood Urea Nitrogen 20H, Creatinine 0.9, Estimat Glomerular Filtration Rate > 60, Glucose Level 135H, Calcium Level 8.5, Total Bilirubin 0.8, Aspartate Amino Transf (AST/ SGOT) 26, Alanine Aminotransferase (ALT/SGPT) 42, Alkaline Phosphatase 83, Total Protein 6.0L, Albumin 1.9L, Globulin 4.1, Albumin/Globulin Ratio 0.5L Height (Feet): 6 Height (Inches): 1.00 Weight (Pounds): 260 General Appearance: no apparent distress, alert EENT: normal ENT inspection Neck: normal alignment Cardiovascular: normal rate Respiratory/Chest: decreased breath sounds Abdomen: soft Extremities: non-tender Neurologic: alert, responsive, normal mood/affect Lexus Lopez N.P. Jun 19, 2017 17:08
[2017-06-19 20:00] VITALS: BP 94/66
[2017-06-20] VITALS: BP 108/76
--- NOTE | 2017-06-20 00:58 | Consultation ---
History of Present Illness General Date patient seen: Jun 17, 2017 Chief Complaint: Dyspnea/Respdistress Present Illness HPI 67-year-old male with past medical history of CHF, COPD, coronary artery disease, hypertension, asthma, and dementia, presented to [facility] for difficulty breathing and productive cough. the pt got agitated and confused. there is a sitter. the pt was cognitively impaired however he knew the date and place. Allergies: Coded Allergies: Cultivated Oat Pollen (Verified Allergy, Unknown, 05/01/17) IODINE AND IODIDE CONTAINING PRODUC (Verified Allergy, Unknown, 05/01/17) PENICILLINS (Verified Allergy, Unknown, 05/02/17) Soy Protein (Verified Allergy, Unknown, 05/01/17) Medication History Scheduled Furosemide* (Lasix*), 20 MG ORAL DAILY, (Reported) Ipratropium/Albuterol Sulfate (DuoNeb 0.5-3(2.5)mg/3ml), 3 ML HHN BID, (Reported ) Scheduled PRN Ibuprofen* (Motrin*), 600 MG ORAL Q12HR PRN for For Pain, (Reported) Miscellaneous Medications Dexamethasone (Dexamethasone), 0.5 MG PO, (Reported) Potassium Gluconate (Potassium), 99 MG PO, (Reported) Patient History History Provided By: Patient, Medical Record, PMD Healthcare decision maker Resuscitation status Full Code Advanced Directive on File No Past Medical/Surgical History Past Medical/Surgical History: (1) COPD (chronic obstructive pulmonary disease) (2) Acute respiratory failure (3) Sepsis (4) HTN (hypertension) (5) HCAP (healthcare-associated pneumonia) (6) Cellulitis and abscess of lower extremity (7) Dyspnea (8) Pneumonia Review of Systems Psychiatric: Reports: anxiety, depressed feelings, emotional problems Physical Exam General Appearance: no apparent distress, alert, agitated Neurologic: alert, oriented x 3 Last 24 Hour Vital Signs Date Time Temp Pulse Resp B/P (MAP) Pulse Ox O2 Delivery O2 Flow Rate FiO2 06/20/17 00:00 119 06/20/17 00:00 98.0 117 16 108/76 100 06/19/17 23:30 101 24 98 Facial 35 06/19/17 21:17 109 26 99 Facial 35 06/19/17 20:00 109 34 98 Bi-pap 35 06/19/17 20:00 112 32 99 Bi-pap 35 06/19/17 20:00 114 06/19/17 20:00 97.0 112 20 94/66 96 06/19/17 19:30 Nasal Cannula 2.0 28 06/19/17 19:30 98 Nasal Cannula 2.0 28 06/19/17 16:00 98.1 121 20 107/73 94 Nasal Cannula 4.0 06/19/17 16:00 118 06/19/17 13:45 121 20 Nasal Cannula 3.0 32 06/19/17 13:35 115 20 Nasal Cannula 3.0 32 06/19/17 12:00 113 06/19/17 11:58 97.2 107 20 112/80 92 Nasal Cannula 4.0 06/19/17 08:00 112 06/19/17 08:00 97.5 107 20 97/61 95 Nasal Cannula 4.0 06/19/17 07:59 88 20 96 Nasal Cannula 2.0 28 06/19/17 07:58 Nasal Cannula 2.0 28 06/19/17 07:50 80 20 93 Nasal Cannula 2.0 28 06/19/17 07:49 93 Nasal Cannula 2.0 28 06/19/17 05:00 97 28 99 Facial 35 06/19/17 04:00 97.0 73 20 105/72 93 Bi-pap 06/19/17 04:00 93 06/19/17 03:10 100 28 99 Facial 35 Intake and Output 06/19/17 06/20/17 19:00 07:00 Intake Total 360 ml Output Total 1600 ml Balance -1240 ml Intake Oral 360 ml Output Urine Total 1600 ml Laboratory Tests Test 06/19/17 11:20 White Blood Count 10.7 K/UL (4.8-10.8) Red Blood Count 4.22 M/UL (4.70-6.10) L Hemoglobin 13.6 G/DL (14.2-18.0) L Hematocrit 41.4 % (42.0-52.0) L Mean Corpuscular Volume 98 FL (80-99) Mean Corpuscular Hemoglobin 32.2 PG (27.0-31.0) H Mean Corpuscular Hemoglobin Concent 32.9 G/DL (32.0-36.0) Red Cell Distribution Width 12.9 % (11.6-14.8) Platelet Count 244 K/UL (150-450) Mean Platelet Volume 7.1 FL (6.5-10.1) Neutrophils (%) (Auto) % (45.0-75.0) Lymphocytes (%) (Auto) % (20.0-45.0) Monocytes (%) (Auto) % (1.0-10.0) Eosinophils (%) (Auto) % (0.0-3.0) Basophils (%) (Auto) % (0.0-2.0) Differential Total Cells Counted 100 Neutrophils % (Manual) 90 % (45-75) H Lymphocytes % (Manual) 8 % (20-45) L Monocytes % (Manual) 2 % (1-10) Eosinophils % (Manual) 0 % (0-3) Basophils % (Manual) 0 % (0-2) Band Neutrophils 0 % (0-8) Platelet Estimate Adequate Platelet Morphology Normal Red Blood Cell Morphology Normal Sodium Level 142 MMOL/L (136-145) Potassium Level 3.1 MMOL/L (3.5-5.1) L Chloride Level 100 MMOL/L (98-107) Carbon Dioxide Level 39 MMOL/L (21-32) H Anion Gap 3 mmol/L (5-15) L Blood Urea Nitrogen 20 mg/dL (7-18) H Creatinine 0.9 MG/DL (0.55-1.30) Estimat Glomerular Filtration Rate > 60 mL/min (>60) Glucose Level 135 MG/DL (74-106) H Calcium Level 8.5 MG/DL (8.5-10.1) Total Bilirubin 0.8 MG/DL (0.2-1.0) Aspartate Amino Transf (AST/SGOT) 26 U/L (15-37) Alanine Aminotransferase (ALT/SGPT) 42 U/L (12-78) Alkaline Phosphatase 83 U/L (46-116) Total Protein 6.0 G/DL (6.4-8.2) L Albumin 1.9 G/DL (3.4-5.0) L Globulin 4.1 g/dL Albumin/Globulin Ratio 0.5 (1.0-2.7) L Height (Feet): 6 Height (Inches): 1.00 Weight (Pounds): 260 Medications Current Medications Medications (Trade) Dose Ordered Sig/Shine Route PRN Reason Start Time Stop Time Status Last Admin Dose Admin Acetaminophen (Tylenol) 650 mg Q4H PRN ORAL Mild Pain (Pain Scale 1-3) 06/17/17 09:00 07/15/17 08:59 Acetaminophen/ Hydrocodone Bitart ([place] 5/325) 1 tab Q4H PRN ORAL Moderate Pain (Pain Scale 4-6) 06/17/17 08:00 06/23/17 19:59 Azithromycin 500 mg/Dextrose 275 ml @ 275 mls/hr Q24H IV 06/18/17 12:00 06/21/17 12:59 06/19/17 13:19 Cefepime HCl 2 gm/ Dextrose 110 ml @ 220 mls/hr EVERY 12 HOURS IVPB 06/18/17 21:00 06/25/17 20:59 06/19/17 21:53 Diphenhydramine HCl (Benadryl) 25 mg Q6H PRN ORAL Itching/Pruritis 06/17/17 09:00 07/15/17 14:59 Furosemide (Lasix) 40 mg EVERY 12 HOURS IV 06/17/17 14:00 07/17/17 13:59 06/19/17 21:52 Haloperidol Lactate (Haldol) 5 mg Q6H PRN IM Agitation 06/18/17 15:45 07/18/17 15:44 Heparin Sodium (Porcine) (Heparin 5000 units/ml) 5,000 units EVERY 12 HOURS SUBQ 06/17/17 09:30 07/16/17 09:29 06/19/17 21:53 Levalbuterol HCl (Xopenex) 1.25 mg TIDRT HHN 06/17/17 13:00 06/22/17 06:59 06/19/17 21:17 Lorazepam (Ativan) 1 mg Q4H PRN ORAL For Anxiety 06/17/17 09:00 06/22/17 08:59 Ondansetron HCl (Zofran) 4 mg Q6H PRN IVP Nausea & Vomiting 06/17/17 09:00 07/15/17 14:59 Pantoprazole (Protonix) 40 mg DAILY ORAL 06/17/17 09:30 07/17/17 09:29 06/19/17 09:02 Risperidone (RisperDAL) 2 mg QHS ORAL 06/18/17 21:00 07/18/17 20:59 06/19/17 21:54 Vancomycin HCl (Vanco rx to dose) 1 ea DAILY PRN MISC Per rx protocol 06/17/17 09:00 07/16/17 14:59 Vancomycin HCl/ Dextrose 250 ml @ 125 mls/hr Q8H IVPB 06/17/17 12:00 06/22/17 03:59 06/19/17 23:14 Zolpidem Tartrate (Ambien) 5 mg HSPRN PRN ORAL Insomnia 06/17/17 09:30 06/23/17 09:29 Assessment/Plan Status: stable Assessment/Plan encephalopathy agitation dementia risperdal ativan shandan Myrna Paige M.D. Jun 20, 2017 00:58
--- NOTE | 2017-06-20 00:59 | General Progress Note ---
Assessment/Plan Status: stable, progressing Subjective Date patient seen: Jun 19, 2017 Neurologic/Psychiatric: Reports: anxiety, depressed, emotional problems Allergies: Coded Allergies: Cultivated Oat Pollen (Verified Allergy, Unknown, 05/01/17) IODINE AND IODIDE CONTAINING PRODUC (Verified Allergy, Unknown, 05/01/17) PENICILLINS (Verified Allergy, Unknown, 05/02/17) Soy Protein (Verified Allergy, Unknown, 05/01/17) Subjective the pt is calmer and is more engaged Objective Last 24 Hour Vital Signs Date Time Temp Pulse Resp B/P (MAP) Pulse Ox O2 Delivery O2 Flow Rate FiO2 06/20/17 00:00 119 06/20/17 00:00 98.0 117 16 108/76 100 06/19/17 23:30 101 24 98 Facial 35 06/19/17 21:17 109 26 99 Facial 35 06/19/17 20:00 109 34 98 Bi-pap 35 06/19/17 20:00 112 32 99 Bi-pap 35 06/19/17 20:00 114 06/19/17 20:00 97.0 112 20 94/66 96 06/19/17 19:30 Nasal Cannula 2.0 28 06/19/17 19:30 98 Nasal Cannula 2.0 28 06/19/17 16:00 98.1 121 20 107/73 94 Nasal Cannula 4.0 06/19/17 16:00 118 06/19/17 13:45 121 20 Nasal Cannula 3.0 32 06/19/17 13:35 115 20 Nasal Cannula 3.0 32 06/19/17 12:00 113 06/19/17 11:58 97.2 107 20 112/80 92 Nasal Cannula 4.0 06/19/17 08:00 112 06/19/17 08:00 97.5 107 20 97/61 95 Nasal Cannula 4.0 06/19/17 07:59 88 20 96 Nasal Cannula 2.0 28 06/19/17 07:58 Nasal Cannula 2.0 28 06/19/17 07:50 80 20 93 Nasal Cannula 2.0 28 06/19/17 07:49 93 Nasal Cannula 2.0 28 06/19/17 05:00 97 28 99 Facial 35 06/19/17 04:00 97.0 73 20 105/72 93 Bi-pap 06/19/17 04:00 93 06/19/17 03:10 100 28 99 Facial 35 Intake and Output 06/19/17 06/20/17 19:00 07:00 Intake Total 360 ml Output Total 1600 ml Balance -1240 ml Intake Oral 360 ml Output Urine Total 1600 ml Laboratory Tests 06/19/17 11:20: White Blood Count 10.7, Red Blood Count 4.22L, Hemoglobin 13.6L, Hematocrit 41.4L, Mean Corpuscular Volume 98, Mean Corpuscular Hemoglobin 32.2H, Mean Corpuscular Hemoglobin Concent 32.9, Red Cell Distribution Width 12.9, Platelet Count 244, Mean Platelet Volume 7.1, Neutrophils (%) (Auto) , Lymphocytes (%) ( Auto) , Monocytes (%) (Auto) , Eosinophils (%) (Auto) , Basophils (%) (Auto) , Differential Total Cells Counted 100, Neutrophils % (Manual) 90H, Lymphocytes % (Manual) 8L, Monocytes % (Manual) 2, Eosinophils % (Manual) 0, Basophils % ( Manual) 0, Band Neutrophils 0, Platelet Estimate Adequate, Platelet Morphology Normal, Red Blood Cell Morphology Normal, Sodium Level 142, Potassium Level 3.1L , Chloride Level 100, Carbon Dioxide Level 39H, Anion Gap 3L, Blood Urea Nitrogen 20H, Creatinine 0.9, Estimat Glomerular Filtration Rate > 60, Glucose Level 135H, Calcium Level 8.5, Total Bilirubin 0.8, Aspartate Amino Transf (AST/ SGOT) 26, Alanine Aminotransferase (ALT/SGPT) 42, Alkaline Phosphatase 83, Total Protein 6.0L, Albumin 1.9L, Globulin 4.1, Albumin/Globulin Ratio 0.5L Height (Feet): 6 Height (Inches): 1.00 Weight (Pounds): 260 General Appearance: no apparent distress, alert Neurologic: alert, responsive, depressed affect Myrna Paige M.D. Jun 20, 2017 00:58
[2017-06-20 04:00] VITALS: BP 99/71
[2017-06-20] MEDS: Vancomycin 1.5gm/D5W 250ml 250 ML IVPB SCH ×3 (06:27→23:08)
[2017-06-20] MEDS: Levalbuterol Inh UD 1.25mg/0.5ml HHN SCH ×3 (07:05→20:15)
[2017-06-20 07:24] LABS: HEMOGLOBIN 14.3 G/DL (14.2-18.0); MEAN CORPUSCULAR VOLUME 98 FL (80-99); PLATELET COUNT 250 K/UL (150-450); RED CELL DISTRIBUTION WIDTH 13.1 % (11.6-14.8)
[2017-06-20 07:57] LABS: ANION GAP 3 mmol/L (5-15); BLOOD UREA NITROGEN 18 mg/dL (7-18); CALCIUM 8.9 MG/DL (8.5-10.1); CARBON DIOXIDE 40 MMOL/L (21-32); CHLORIDE 97 MMOL/L (98-107); CREATININE 0.8 MG/DL (0.55-1.30); POTASSIUM 3.2 MMOL/L (3.5-5.1); SODIUM 140 MMOL/L (136-145)
[2017-06-20 08:00] VITALS: BP 117/69
[2017-06-20] MEDS: Cefepime HCl 2 GM in D5W 110 ML IVPB SCH ×2 (09:59→21:42)
[2017-06-20] MEDS: Heparin 5000 units/ml inj SUBQ SCH ×2 (10:01→21:50)
[2017-06-20 12:01] VITALS: BP 104/71
[2017-06-20] MEDS: Azithromycin 500 MG in D5W 275 ML IV SCH (13:27)
--- NOTE | 2017-06-20 15:31 | Cardiac Electrophysiology PN ---
Assessment/Plan Assessment/Plan 1. Shortness of breath due to CHF, COPD and PNA. Echo Nl EF. On Lasix 40 mg IV twice a day. . 2. Complete left bundle-branch block without syncope. 3. Sinus Tachycardia. No atrial fib or SVT. Due to COPD and large left sided PNA 4. Chronic obstructive pulmonary disease and pneumonia, on IV antibiotics per Dr. Heck 5. Cellulitis of lower extremities.On Abx per Dr. Mckenna. ABDULKADIR RN Subjective Subjective On tele in SR. SOB better. Sitter at bedside. Objective Last 24 Hour Vital Signs Date Time Temp Pulse Resp B/P (MAP) Pulse Ox O2 Delivery O2 Flow Rate FiO2 06/20/17 12:01 97.7 117 21 104/71 93 06/20/17 11:56 97 06/20/17 08:00 98.1 113 20 117/69 93 06/20/17 08:00 103 06/20/17 04:00 97.0 82 20 99/71 97 06/20/17 04:00 102 06/20/17 03:30 109 26 98 Facial 35 06/20/17 01:30 106 25 99 Facial 35 06/20/17 00:00 119 06/20/17 00:00 98.0 117 16 108/76 100 06/19/17 23:30 101 24 98 Facial 35 06/19/17 21:17 109 26 99 Facial 35 06/19/17 20:00 109 34 98 Bi-pap 35 06/19/17 20:00 112 32 99 Bi-pap 35 06/19/17 20:00 114 06/19/17 20:00 97.0 112 20 94/66 96 06/19/17 19:30 Nasal Cannula 2.0 28 06/19/17 19:30 98 Nasal Cannula 2.0 28 06/19/17 16:00 98.1 121 20 107/73 94 Nasal Cannula 4.0 06/19/17 16:00 118 Intake and Output 06/19/17 06/20/17 19:00 07:00 Intake Total 360 ml Output Total 1600 ml 1300 ml Balance -1240 ml -1300 ml Intake Oral 360 ml Output Urine Total 1600 ml 1300 ml Laboratory Tests Test 06/20/17 05:40 06/20/17 05:50 White Blood Count 10.0 K/UL (4.8-10.8) Red Blood Count 4.50 M/UL (4.70-6.10) L Hemoglobin 14.3 G/DL (14.2-18.0) Hematocrit 44.0 % (42.0-52.0) Mean Corpuscular Volume 98 FL (80-99) Mean Corpuscular Hemoglobin 31.8 PG (27.0-31.0) H Mean Corpuscular Hemoglobin Concent 32.5 G/DL (32.0-36.0) Red Cell Distribution Width 13.1 % (11.6-14.8) Platelet Count 250 K/UL (150-450) Mean Platelet Volume 7.2 FL (6.5-10.1) Neutrophils (%) (Auto) % (45.0-75.0) Lymphocytes (%) (Auto) % (20.0-45.0) Monocytes (%) (Auto) % (1.0-10.0) Eosinophils (%) (Auto) % (0.0-3.0) Basophils (%) (Auto) % (0.0-2.0) Differential Total Cells Counted 100 Neutrophils % (Manual) 89 % (45-75) H Lymphocytes % (Manual) 5 % (20-45) L Monocytes % (Manual) 5 % (1-10) Eosinophils % (Manual) 1 % (0-3) Basophils % (Manual) 0 % (0-2) Band Neutrophils 0 % (0-8) Platelet Estimate Adequate Platelet Morphology Normal Red Blood Cell Morphology Normal Sodium Level 140 MMOL/L (136-145) Potassium Level 3.2 MMOL/L (3.5-5.1) L Chloride Level 97 MMOL/L (98-107) L Carbon Dioxide Level 40 MMOL/L (21-32) H Anion Gap 3 mmol/L (5-15) L Blood Urea Nitrogen 18 mg/dL (7-18) Creatinine 0.8 MG/DL (0.55-1.30) Estimat Glomerular Filtration Rate > 60 mL/min (>60) Glucose Level 104 MG/DL (74-106) Calcium Level 8.9 MG/DL (8.5-10.1) Microbiology Date/Time Source Procedure Growth Status 06/18/17 01:00 Nasal Nares Influenza Types A,B Antigen (ARLET) - Final Complete Objective HEAD AND NECK: Mild JVD. Right eye ecchymotic LUNGS: Decreased breath sounds. CARDIOVASCULAR: Tachycardic S1 and S2 with no gallop or murmur. ABDOMEN: Obese. EXTREMITIES: 2+ pitting edema. ASHOK ROSS Jun 20, 2017 15:31
--- NOTE | 2017-06-20 15:43 | Pulmonology Progress Note ---
Assessment/Plan Assessment/Plan ASSESSMENT AND RECOMMENDATION: 1. Pneumonia with diffuse patchy infiltrate, left worse than right. agree with vancomycin and cefepime empiric coverage. Continue Zithromax for atypical coverage and screen for influenza. Latest CXR is better. 2. Bilateral lower extremity cellulitis. continue antibiotics 3. Sepsis due to the above. continue antibiotics 4. Chronic obstructive pulmonary disease Continue nebulizer and oxygen therapy. No longer on BIPAP More awake Discussed with RN agree with potassium replacement Continue nighttime BiPAP. Subjective Interval Events: None Constitutional: Reports: no symptoms HEENT: Repors: no symptoms Respiratory: Reports: no symptoms Cardiovascular: Reports: no symptoms Gastrointestinal/Abdominal: Reports: no symptoms Allergies: Coded Allergies: Cultivated Oat Pollen (Verified Allergy, Unknown, 05/01/17) IODINE AND IODIDE CONTAINING PRODUC (Verified Allergy, Unknown, 05/01/17) PENICILLINS (Verified Allergy, Unknown, 05/02/17) Soy Protein (Verified Allergy, Unknown, 05/01/17) Objective Last 24 Hour Vital Signs Date Time Temp Pulse Resp B/P (MAP) Pulse Ox O2 Delivery O2 Flow Rate FiO2 06/20/17 15:38 98 06/20/17 12:01 97.7 117 21 104/71 93 06/20/17 11:56 97 06/20/17 08:00 98.1 113 20 117/69 93 06/20/17 08:00 103 06/20/17 04:00 97.0 82 20 99/71 97 06/20/17 04:00 102 06/20/17 03:30 109 26 98 Facial 35 06/20/17 01:30 106 25 99 Facial 35 06/20/17 00:00 119 06/20/17 00:00 98.0 117 16 108/76 100 06/19/17 23:30 101 24 98 Facial 35 06/19/17 21:17 109 26 99 Facial 35 06/19/17 20:00 109 34 98 Bi-pap 35 06/19/17 20:00 112 32 99 Bi-pap 35 06/19/17 20:00 114 06/19/17 20:00 97.0 112 20 94/66 96 06/19/17 19:30 Nasal Cannula 2.0 28 06/19/17 19:30 98 Nasal Cannula 2.0 28 06/19/17 16:00 98.1 121 20 107/73 94 Nasal Cannula 4.0 06/19/17 16:00 118 Intake and Output 06/19/17 06/20/17 19:00 07:00 Intake Total 360 ml Output Total 1600 ml 1300 ml Balance -1240 ml -1300 ml Intake Oral 360 ml Output Urine Total 1600 ml 1300 ml General Appearance: no acute distress HEENT: normocephalic Respiratory/Chest: chest wall non-tender Cardiovascular: normal peripheral pulses, normal rate Abdomen: normal bowel sounds Microbiology Date/Time Source Procedure Growth Status 06/18/17 01:00 Nasal Nares Influenza Types A,B Antigen (ARLET) - Final Complete Laboratory Tests 06/20/17 05:40: White Blood Count 10.0, Red Blood Count 4.50L, Hemoglobin 14.3, Hematocrit 44.0 , Mean Corpuscular Volume 98, Mean Corpuscular Hemoglobin 31.8H, Mean Corpuscular Hemoglobin Concent 32.5, Red Cell Distribution Width 13.1, Platelet Count 250, Mean Platelet Volume 7.2, Neutrophils (%) (Auto) , Lymphocytes (%) ( Auto) , Monocytes (%) (Auto) , Eosinophils (%) (Auto) , Basophils (%) (Auto) , Differential Total Cells Counted 100, Neutrophils % (Manual) 89H, Lymphocytes % (Manual) 5L, Monocytes % (Manual) 5, Eosinophils % (Manual) 1, Basophils % ( Manual) 0, Band Neutrophils 0, Platelet Estimate Adequate, Platelet Morphology Normal, Red Blood Cell Morphology Normal 06/20/17 05:50: Sodium Level 140, Potassium Level 3.2L, Chloride Level 97L, Carbon Dioxide Level 40H, Anion Gap 3L, Blood Urea Nitrogen 18, Creatinine 0.8, Estimat Glomerular Filtration Rate > 60, Glucose Level 104, Calcium Level 8.9 Current Medications Medications (Trade) Dose Ordered Sig/Shine Route PRN Reason Start Time Stop Time Status Last Admin Dose Admin Acetaminophen (Tylenol) 650 mg Q4H PRN ORAL Mild Pain (Pain Scale 1-3) 06/17/17 09:00 07/15/17 08:59 Acetaminophen/ Hydrocodone Bitart ([place] 5/325) 1 tab Q4H PRN ORAL Moderate Pain (Pain Scale 4-6) 06/17/17 08:00 06/23/17 19:59 Azithromycin 500 mg/Dextrose 275 ml @ 275 mls/hr Q24H IV 06/18/17 12:00 06/21/17 12:59 06/20/17 13:27 Cefepime HCl 2 gm/ Dextrose 110 ml @ 220 mls/hr EVERY 12 HOURS IVPB 06/18/17 21:00 06/25/17 20:59 06/20/17 09:59 Diphenhydramine HCl (Benadryl) 25 mg Q6H PRN ORAL Itching/Pruritis 06/17/17 09:00 07/15/17 14:59 Furosemide (Lasix) 40 mg EVERY 12 HOURS IV 06/17/17 14:00 07/17/17 13:59 06/20/17 09:59 Haloperidol Lactate (Haldol) 5 mg Q6H PRN IM Agitation 06/18/17 15:45 07/18/17 15:44 Heparin Sodium (Porcine) (Heparin 5000 units/ml) 5,000 units EVERY 12 HOURS SUBQ 06/17/17 09:30 07/16/17 09:29 06/20/17 10:01 Levalbuterol HCl (Xopenex) 1.25 mg TIDRT HHN 06/17/17 13:00 06/22/17 06:59 06/20/17 13:02 Lorazepam (Ativan) 1 mg Q4H PRN ORAL For Anxiety 06/17/17 09:00 06/22/17 08:59 Ondansetron HCl (Zofran) 4 mg Q6H PRN IVP Nausea & Vomiting 06/17/17 09:00 07/15/17 14:59 Pantoprazole (Protonix) 40 mg DAILY ORAL 06/17/17 09:30 07/17/17 09:29 06/20/17 09:58 Risperidone (RisperDAL) 2 mg QHS ORAL 06/18/17 21:00 07/18/17 20:59 06/19/17 21:54 Vancomycin HCl (Vanco rx to dose) 1 ea DAILY PRN MISC Per rx protocol 06/17/17 09:00 07/16/17 14:59 Vancomycin HCl/ Dextrose 250 ml @ 125 mls/hr Q8H IVPB 06/17/17 12:00 06/22/17 03:59 06/20/17 06:27 Zolpidem Tartrate (Ambien) 5 mg HSPRN PRN ORAL Insomnia 06/17/17 09:30 06/23/17 09:29 Osmel Barnes MD Jun 20, 2017 15:43
[2017-06-20 16:00] VITALS: BP 95/69
--- NOTE | 2017-06-20 17:06 | Infectious Diseases Prog Note ---
Assessment/Plan Problems: (1) HCAP (healthcare-associated pneumonia) Assessment & Plan: with diffuse patchy infiltrates left worse, than right, already on vancomycin and cefepime empiric coverage, and zithromax for atypical organisms coverage , not febrile, with mildly elevated WBC, and negative blood culture , suspect fluids overload on top, will repeat CXR to confirm. continue current antibiotics, obtain sputum culture (2) Cellulitis and abscess of lower extremity Assessment & Plan: already on vancomycin and cefepime (3) Sepsis Assessment & Plan: less likely, with negative blood culture , already on vancomycin and cefepime , pending blood culture (4) Acute respiratory failure Assessment & Plan: suspect fluids overload on top , and pneumonia , now on BIPAP, for breathing support , will repeat CXR to confirm , and order troponin level , cardiology is following , recommend pulmonary consult . (5) COPD (chronic obstructive pulmonary disease) Assessment & Plan: with exacerbation due to the above , continue nebulizers and oxygen therapy Subjective Constitutional: Reports: no symptoms HEENT: Reports: congestion Respiratory: Reports: productive cough Breasts: Reports: no symptoms Cardiovascular: Reports: no symptoms Gastrointestinal/Abdominal: Reports: no symptoms Genitourinary: Reports: no symptoms Neurologic: Reports: no symptoms Psychiatric: Reports: no symptoms Skin: Reports: no symptoms Endocrine: Reports: no symptoms Hematologic: Reports: no symptoms Musculoskeletal: Reports: no symptoms Allergies: Coded Allergies: Cultivated Oat Pollen (Verified Allergy, Unknown, 05/01/17) IODINE AND IODIDE CONTAINING PRODUC (Verified Allergy, Unknown, 05/01/17) PENICILLINS (Verified Allergy, Unknown, 05/02/17) Soy Protein (Verified Allergy, Unknown, 05/01/17) Subjective he was still confused, off BIPAP, not febrile, no cough or phlegm, mild SOB, sating well on nasal canula Objective Vital Signs Last 24 Hour Vital Signs Date Time Temp Pulse Resp B/P (MAP) Pulse Ox O2 Delivery O2 Flow Rate FiO2 06/20/17 16:00 98.4 113 22 95/69 93 06/20/17 15:38 98 06/20/17 13:12 110 27 99 Nasal Cannula 3.0 06/20/17 13:02 100 24 94 Nasal Cannula 3.0 06/20/17 12:01 97.7 117 21 104/71 93 06/20/17 11:56 97 06/20/17 08:00 98.1 113 20 117/69 93 06/20/17 08:00 103 06/20/17 06:40 Nasal Cannula 3.0 06/20/17 06:40 101 23 95 Nasal Cannula 3.0 06/20/17 06:40 Nasal Cannula 3.0 06/20/17 06:40 94 Nasal Cannula 3.0 06/20/17 04:00 97.0 82 20 99/71 97 06/20/17 04:00 102 06/20/17 03:30 109 26 98 Facial 35 06/20/17 01:30 106 25 99 Facial 35 06/20/17 00:00 119 06/20/17 00:00 98.0 117 16 108/76 100 06/19/17 23:30 101 24 98 Facial 35 06/19/17 21:17 109 26 99 Facial 35 06/19/17 20:00 109 34 98 Bi-pap 35 06/19/17 20:00 112 32 99 Bi-pap 35 06/19/17 20:00 114 06/19/17 20:00 97.0 112 20 94/66 96 06/19/17 19:30 Nasal Cannula 2.0 28 06/19/17 19:30 98 Nasal Cannula 2.0 28 Height (Feet): 6 Height (Inches): 1.00 Weight (Pounds): 260 General Appearance: WD/WN, no acute distress HEENT: normocephalic, atraumatic, anicteric, mucous membranes moist, PERRL Respiratory/Chest: chest wall non-tender, no respiratory distress, no accessory muscle use, decreased breath sounds, crackles/rales Cardiovascular: normal peripheral pulses, normal rate, regular rhythm, no gallop/murmur, no JVD Abdomen: normal bowel sounds, soft, non tender, no organomegaly, non distended , no mass, no scars Extremities: no cyanosis, no clubbing Skin: no rash, no lesions, no ulcers Microbiology Date/Time Source Procedure Growth Status 06/18/17 01:00 Nasal Nares Influenza Types A,B Antigen (ARLET) - Final Complete Laboratory Tests Test 06/20/17 05:40 06/20/17 05:50 White Blood Count 10.0 K/UL (4.8-10.8) Red Blood Count 4.50 M/UL (4.70-6.10) L Hemoglobin 14.3 G/DL (14.2-18.0) Hematocrit 44.0 % (42.0-52.0) Mean Corpuscular Volume 98 FL (80-99) Mean Corpuscular Hemoglobin 31.8 PG (27.0-31.0) H Mean Corpuscular Hemoglobin Concent 32.5 G/DL (32.0-36.0) Red Cell Distribution Width 13.1 % (11.6-14.8) Platelet Count 250 K/UL (150-450) Mean Platelet Volume 7.2 FL (6.5-10.1) Neutrophils (%) (Auto) % (45.0-75.0) Lymphocytes (%) (Auto) % (20.0-45.0) Monocytes (%) (Auto) % (1.0-10.0) Eosinophils (%) (Auto) % (0.0-3.0) Basophils (%) (Auto) % (0.0-2.0) Differential Total Cells Counted 100 Neutrophils % (Manual) 89 % (45-75) H Lymphocytes % (Manual) 5 % (20-45) L Monocytes % (Manual) 5 % (1-10) Eosinophils % (Manual) 1 % (0-3) Basophils % (Manual) 0 % (0-2) Band Neutrophils 0 % (0-8) Platelet Estimate Adequate Platelet Morphology Normal Red Blood Cell Morphology Normal Sodium Level 140 MMOL/L (136-145) Potassium Level 3.2 MMOL/L (3.5-5.1) L Chloride Level 97 MMOL/L (98-107) L Carbon Dioxide Level 40 MMOL/L (21-32) H Anion Gap 3 mmol/L (5-15) L Blood Urea Nitrogen 18 mg/dL (7-18) Creatinine 0.8 MG/DL (0.55-1.30) Estimat Glomerular Filtration Rate > 60 mL/min (>60) Glucose Level 104 MG/DL (74-106) Calcium Level 8.9 MG/DL (8.5-10.1) Current Medications Medications (Trade) Dose Ordered Sig/Shine Route PRN Reason Start Time Stop Time Status Last Admin Dose Admin Acetaminophen (Tylenol) 650 mg Q4H PRN ORAL Mild Pain (Pain Scale 1-3) 06/17/17 09:00 07/15/17 08:59 Acetaminophen/ Hydrocodone Bitart ([place] 5/325) 1 tab Q4H PRN ORAL Moderate Pain (Pain Scale 4-6) 06/17/17 08:00 06/23/17 19:59 Azithromycin 500 mg/Dextrose 275 ml @ 275 mls/hr Q24H IV 06/18/17 12:00 06/21/17 12:59 06/20/17 13:27 Cefepime HCl 2 gm/ Dextrose 110 ml @ 220 mls/hr EVERY 12 HOURS IVPB 06/18/17 21:00 06/25/17 20:59 06/20/17 09:59 Diphenhydramine HCl (Benadryl) 25 mg Q6H PRN ORAL Itching/Pruritis 06/17/17 09:00 07/15/17 14:59 Furosemide (Lasix) 40 mg EVERY 12 HOURS IV 06/17/17 14:00 07/17/17 13:59 06/20/17 09:59 Haloperidol Lactate (Haldol) 5 mg Q6H PRN IM Agitation 06/18/17 15:45 07/18/17 15:44 Heparin Sodium (Porcine) (Heparin 5000 units/ml) 5,000 units EVERY 12 HOURS SUBQ 06/17/17 09:30 07/16/17 09:29 06/20/17 10:01 Levalbuterol HCl (Xopenex) 1.25 mg TIDRT HHN 06/17/17 13:00 06/22/17 06:59 06/20/17 13:02 Lorazepam (Ativan) 1 mg Q4H PRN ORAL For Anxiety 06/17/17 09:00 06/22/17 08:59 Ondansetron HCl (Zofran) 4 mg Q6H PRN IVP Nausea & Vomiting 06/17/17 09:00 07/15/17 14:59 Pantoprazole (Protonix) 40 mg DAILY ORAL 06/17/17 09:30 07/17/17 09:29 06/20/17 09:58 Risperidone (RisperDAL) 2 mg QHS ORAL 06/18/17 21:00 07/18/17 20:59 06/19/17 21:54 Vancomycin HCl (Vanco rx to dose) 1 ea DAILY PRN MISC Per rx protocol 06/17/17 09:00 07/16/17 14:59 Vancomycin HCl/ Dextrose 250 ml @ 125 mls/hr Q8H IVPB 06/17/17 12:00 06/22/17 03:59 06/20/17 15:53 Zolpidem Tartrate (Ambien) 5 mg HSPRN PRN ORAL Insomnia 06/17/17 09:30 06/23/17 09:29 Gregg Mckenna M.D. Jun 20, 2017 17:06
--- NOTE | 2017-06-20 18:43 | Nephrology Progress Note ---
Assessment/Plan Problem List: (1) COPD (chronic obstructive pulmonary disease) (2) Acute respiratory failure (3) Sepsis (4) HTN (hypertension) (5) HCAP (healthcare-associated pneumonia) (6) Cellulitis and abscess of lower extremity (7) Dyspnea (8) Pneumonia Plan abx per ID. pulm hygiene. NEB breathing tx. wound care. d/w Dr. Heck. Subjective Subjective off BiPAP. Objective Objective Last 24 Hour Vital Signs Date Time Temp Pulse Resp B/P (MAP) Pulse Ox O2 Delivery O2 Flow Rate FiO2 06/20/17 16:00 98.4 113 22 95/69 93 06/20/17 15:38 98 06/20/17 13:12 110 27 99 Nasal Cannula 3.0 06/20/17 13:02 100 24 94 Nasal Cannula 3.0 06/20/17 12:01 97.7 117 21 104/71 93 06/20/17 11:56 97 06/20/17 08:00 98.1 113 20 117/69 93 06/20/17 08:00 103 06/20/17 06:40 Nasal Cannula 3.0 06/20/17 06:40 101 23 95 Nasal Cannula 3.0 06/20/17 06:40 Nasal Cannula 3.0 06/20/17 06:40 94 Nasal Cannula 3.0 06/20/17 04:00 97.0 82 20 99/71 97 06/20/17 04:00 102 06/20/17 03:30 109 26 98 Facial 35 06/20/17 01:30 106 25 99 Facial 35 06/20/17 00:00 119 06/20/17 00:00 98.0 117 16 108/76 100 06/19/17 23:30 101 24 98 Facial 35 06/19/17 21:17 109 26 99 Facial 35 06/19/17 20:00 109 34 98 Bi-pap 35 06/19/17 20:00 112 32 99 Bi-pap 35 06/19/17 20:00 114 06/19/17 20:00 97.0 112 20 94/66 96 06/19/17 19:30 Nasal Cannula 2.0 28 06/19/17 19:30 98 Nasal Cannula 2.0 28 Intake and Output 06/19/17 06/20/17 19:00 07:00 Intake Total 360 ml Output Total 1600 ml 1300 ml Balance -1240 ml -1300 ml Intake Oral 360 ml Output Urine Total 1600 ml 1300 ml Laboratory Tests 06/20/17 05:40: White Blood Count 10.0, Red Blood Count 4.50L, Hemoglobin 14.3, Hematocrit 44.0 , Mean Corpuscular Volume 98, Mean Corpuscular Hemoglobin 31.8H, Mean Corpuscular Hemoglobin Concent 32.5, Red Cell Distribution Width 13.1, Platelet Count 250, Mean Platelet Volume 7.2, Neutrophils (%) (Auto) , Lymphocytes (%) ( Auto) , Monocytes (%) (Auto) , Eosinophils (%) (Auto) , Basophils (%) (Auto) , Differential Total Cells Counted 100, Neutrophils % (Manual) 89H, Lymphocytes % (Manual) 5L, Monocytes % (Manual) 5, Eosinophils % (Manual) 1, Basophils % ( Manual) 0, Band Neutrophils 0, Platelet Estimate Adequate, Platelet Morphology Normal, Red Blood Cell Morphology Normal 06/20/17 05:50: Sodium Level 140, Potassium Level 3.2L, Chloride Level 97L, Carbon Dioxide Level 40H, Anion Gap 3L, Blood Urea Nitrogen 18, Creatinine 0.8, Estimat Glomerular Filtration Rate > 60, Glucose Level 104, Calcium Level 8.9 Height (Feet): 6 Height (Inches): 1.00 Weight (Pounds): 260 General Appearance: no apparent distress Cardiovascular: normal rate, regularly irregular Respiratory/Chest: decreased breath sounds Abdomen: non tender, soft Extremities: moderate edema Neurologic: alert ANGELICA MCGHEE Jun 20, 2017 18:43
[2017-06-20 20:00] VITALS: BP 94/67
--- NOTE | 2017-06-20 21:03 | General Progress Note ---
Assessment/Plan Problem List: (1) COPD (chronic obstructive pulmonary disease) ICD Codes: J44.9 - Chronic obstructive pulmonary disease, unspecified SNOMED: 32552919 (2) Acute respiratory failure ICD Codes: J96.00 - Acute respiratory failure, unspecified whether with hypoxia or hypercapnia SNOMED: 25464442 (3) Sepsis ICD Codes: A41.9 - Sepsis, unspecified organism SNOMED: 83798998 (4) HTN (hypertension) ICD Codes: I10 - Essential (primary) hypertension SNOMED: 39214597 (5) HCAP (healthcare-associated pneumonia) ICD Codes: J18.9 - Pneumonia, unspecified organism SNOMED: 651662579 (6) Cellulitis and abscess of lower extremity ICD Codes: L03.119 - Cellulitis of unspecified part of limb; L02.419 - Cutaneous abscess of limb, unspecified SNOMED: 197216505 (7) Dyspnea ICD Codes: R06.00 - Dyspnea, unspecified SNOMED: 010755946 Qualifiers: Qualified Codes: R06.00 - Dyspnea, unspecified (8) Pneumonia ICD Codes: J18.9 - Pneumonia, unspecified organism SNOMED: 152410866 Qualifiers: Qualified Codes: J18.9 - Pneumonia, unspecified organism Subjective Date patient seen: Jun 20, 2017 Neurologic/Psychiatric: Reports: anxiety, depressed, emotional problems Allergies: Coded Allergies: Cultivated Oat Pollen (Verified Allergy, Unknown, 05/01/17) IODINE AND IODIDE CONTAINING PRODUC (Verified Allergy, Unknown, 05/01/17) PENICILLINS (Verified Allergy, Unknown, 05/02/17) Soy Protein (Verified Allergy, Unknown, 05/01/17) Subjective the pt is more engaged Objective Last 24 Hour Vital Signs Date Time Temp Pulse Resp B/P (MAP) Pulse Ox O2 Delivery O2 Flow Rate FiO2 06/20/17 20:18 Nasal Cannula 2.0 28 06/20/17 20:00 97.2 114 18 94/67 100 06/20/17 20:00 111 20 92 Nasal Cannula 3.0 32 06/20/17 20:00 114 20 96 Nasal Cannula 3.0 32 06/20/17 19:30 92 Nasal Cannula 3.0 32 06/20/17 16:00 98.4 113 22 95/69 93 06/20/17 15:38 98 06/20/17 13:12 110 27 99 Nasal Cannula 3.0 06/20/17 13:02 100 24 94 Nasal Cannula 3.0 06/20/17 12:01 97.7 117 21 104/71 93 06/20/17 11:56 97 06/20/17 08:00 98.1 113 20 117/69 93 06/20/17 08:00 103 06/20/17 06:40 Nasal Cannula 3.0 06/20/17 06:40 101 23 95 Nasal Cannula 3.0 06/20/17 06:40 Nasal Cannula 3.0 06/20/17 06:40 94 Nasal Cannula 3.0 06/20/17 04:00 97.0 82 20 99/71 97 06/20/17 04:00 102 06/20/17 03:30 109 26 98 Facial 35 06/20/17 01:30 106 25 99 Facial 35 06/20/17 00:00 119 06/20/17 00:00 98.0 117 16 108/76 100 06/19/17 23:30 101 24 98 Facial 35 06/19/17 21:17 109 26 99 Facial 35 Intake and Output 06/19/17 06/20/17 19:00 07:00 Intake Total 360 ml Output Total 1600 ml 1300 ml Balance -1240 ml -1300 ml Intake Oral 360 ml Output Urine Total 1600 ml 1300 ml Laboratory Tests 06/20/17 05:40: White Blood Count 10.0, Red Blood Count 4.50L, Hemoglobin 14.3, Hematocrit 44.0 , Mean Corpuscular Volume 98, Mean Corpuscular Hemoglobin 31.8H, Mean Corpuscular Hemoglobin Concent 32.5, Red Cell Distribution Width 13.1, Platelet Count 250, Mean Platelet Volume 7.2, Neutrophils (%) (Auto) , Lymphocytes (%) ( Auto) , Monocytes (%) (Auto) , Eosinophils (%) (Auto) , Basophils (%) (Auto) , Differential Total Cells Counted 100, Neutrophils % (Manual) 89H, Lymphocytes % (Manual) 5L, Monocytes % (Manual) 5, Eosinophils % (Manual) 1, Basophils % ( Manual) 0, Band Neutrophils 0, Platelet Estimate Adequate, Platelet Morphology Normal, Red Blood Cell Morphology Normal 06/20/17 05:50: Sodium Level 140, Potassium Level 3.2L, Chloride Level 97L, Carbon Dioxide Level 40H, Anion Gap 3L, Blood Urea Nitrogen 18, Creatinine 0.8, Estimat Glomerular Filtration Rate > 60, Glucose Level 104, Calcium Level 8.9 Height (Feet): 6 Height (Inches): 1.00 Weight (Pounds): 260 General Appearance: no apparent distress, alert, agitated Myrna Paige M.D. Jun 20, 2017 21:03
[2017-06-21] VITALS: BP 100/68
[2017-06-21 04:00] VITALS: BP 91/65
[2017-06-21] MEDS: Vancomycin 1.5gm/D5W 250ml 250 ML IVPB SCH ×2 (06:40→16:12)
[2017-06-21] MEDS: Levalbuterol Inh UD 1.25mg/0.5ml HHN SCH ×3 (07:00→19:25)
--- NOTE | 2017-06-21 07:46 | Pulmonology Progress Note ---
Assessment/Plan Assessment/Plan ASSESSMENT AND RECOMMENDATION: 1. Pneumonia with diffuse patchy infiltrate, left worse than right. agree with vancomycin and cefepime empiric coverage. Continue Zithromax for atypical coverage and screen for influenza. Latest CXR is better. 2. Bilateral lower extremity cellulitis. continue antibiotics 3. Sepsis due to the above. continue antibiotics 4. Chronic obstructive pulmonary disease Continue nebulizer and oxygen therapy. No longer on BIPAP More awake Discussed with RN agree with potassium replacement Continue nighttime BiPAP. Subjective Interval Events: No changes Constitutional: Reports: no symptoms HEENT: Repors: no symptoms Respiratory: Reports: shortness of breath Cardiovascular: Reports: no symptoms Gastrointestinal/Abdominal: Reports: no symptoms Allergies: Coded Allergies: Cultivated Oat Pollen (Verified Allergy, Unknown, 05/01/17) IODINE AND IODIDE CONTAINING PRODUC (Verified Allergy, Unknown, 05/01/17) PENICILLINS (Verified Allergy, Unknown, 05/02/17) Soy Protein (Verified Allergy, Unknown, 05/01/17) Objective Last 24 Hour Vital Signs Date Time Temp Pulse Resp B/P (MAP) Pulse Ox O2 Delivery O2 Flow Rate FiO2 06/21/17 04:00 117 06/21/17 04:00 97.2 117 20 91/65 95 06/21/17 00:00 97.0 126 20 100/68 92 06/21/17 00:00 110 06/20/17 23:30 120 26 97 Facial 35 06/20/17 20:18 Nasal Cannula 2.0 28 06/20/17 20:00 97.2 114 18 94/67 100 06/20/17 20:00 113 06/20/17 20:00 111 20 92 Nasal Cannula 3.0 32 06/20/17 20:00 114 20 96 Nasal Cannula 3.0 32 06/20/17 19:30 92 Nasal Cannula 3.0 32 06/20/17 16:00 98.4 113 22 95/69 93 06/20/17 15:38 98 06/20/17 13:12 110 27 99 Nasal Cannula 3.0 06/20/17 13:02 100 24 94 Nasal Cannula 3.0 06/20/17 12:01 97.7 117 21 104/71 93 06/20/17 11:56 97 06/20/17 08:00 98.1 113 20 117/69 93 06/20/17 08:00 103 Intake and Output 06/20/17 06/21/17 19:00 07:00 Intake Total 755 ml Output Total 500 ml 2000 ml Balance 255 ml -2000 ml Intake Oral 120 ml IV Total 635 ml Output Urine Total 500 ml 2000 ml General Appearance: no acute distress HEENT: normocephalic Respiratory/Chest: chest wall non-tender, lungs clear Cardiovascular: normal peripheral pulses, normal rate Current Medications Medications (Trade) Dose Ordered Sig/Shine Route PRN Reason Start Time Stop Time Status Last Admin Dose Admin Acetaminophen (Tylenol) 650 mg Q4H PRN ORAL Mild Pain (Pain Scale 1-3) 06/17/17 09:00 07/15/17 08:59 Acetaminophen/ Hydrocodone Bitart ([place] 5/325) 1 tab Q4H PRN ORAL Moderate Pain (Pain Scale 4-6) 06/17/17 08:00 06/23/17 19:59 Azithromycin 500 mg/Dextrose 275 ml @ 275 mls/hr Q24H IV 06/18/17 12:00 06/21/17 12:59 06/20/17 13:27 Cefepime HCl 2 gm/ Dextrose 110 ml @ 220 mls/hr EVERY 12 HOURS IVPB 06/18/17 21:00 06/25/17 20:59 06/20/17 21:42 Diphenhydramine HCl (Benadryl) 25 mg Q6H PRN ORAL Itching/Pruritis 06/17/17 09:00 07/15/17 14:59 Furosemide (Lasix) 40 mg EVERY 12 HOURS IV 06/17/17 14:00 07/17/17 13:59 06/20/17 21:41 Haloperidol Lactate (Haldol) 5 mg Q6H PRN IM Agitation 06/18/17 15:45 07/18/17 15:44 Heparin Sodium (Porcine) (Heparin 5000 units/ml) 5,000 units EVERY 12 HOURS SUBQ 06/17/17 09:30 07/16/17 09:29 06/20/17 21:50 Levalbuterol HCl (Xopenex) 1.25 mg TIDRT HHN 06/17/17 13:00 06/22/17 06:59 06/20/17 20:15 Lorazepam (Ativan) 1 mg Q4H PRN ORAL For Anxiety 06/17/17 09:00 06/22/17 08:59 Ondansetron HCl (Zofran) 4 mg Q6H PRN IVP Nausea & Vomiting 06/17/17 09:00 07/15/17 14:59 Pantoprazole (Protonix) 40 mg DAILY ORAL 06/17/17 09:30 07/17/17 09:29 06/20/17 09:58 Risperidone (RisperDAL) 2 mg QHS ORAL 06/18/17 21:00 07/18/17 20:59 06/20/17 21:43 Vancomycin HCl (Vanco rx to dose) 1 ea DAILY PRN MISC Per rx protocol 06/17/17 09:00 07/16/17 14:59 Vancomycin HCl/ Dextrose 250 ml @ 125 mls/hr Q8H IVPB 06/17/17 12:00 06/22/17 03:59 06/21/17 06:40 Zolpidem Tartrate (Ambien) 5 mg HSPRN PRN ORAL Insomnia 06/17/17 09:30 06/23/17 09:29 Osmel Barnes MD Jun 21, 2017 07:46
[2017-06-21 08:00] VITALS: BP 108/70
[2017-06-21] MEDS: Cefepime HCl 2 GM in D5W 110 ML IVPB SCH ×2 (08:40→20:28)
[2017-06-21] MEDS: Heparin 5000 units/ml inj SUBQ SCH ×2 (08:42→20:53)
--- NOTE | 2017-06-21 11:21 | Cardiac Electrophysiology PN ---
Assessment/Plan Assessment/Plan 1. Shortness of breath due to CHF, COPD and PNA. Echo Nl EF. On Lasix 40 mg IV twice a day. . 2. Complete left bundle-branch block without syncope. 3. Sinus Tachycardia. No atrial fib or SVT. Due to COPD and large left sided PNA 4. Chronic obstructive pulmonary disease and pneumonia, on IV antibiotics per Dr. Heck 5. Cellulitis of lower extremities.On Abx per Dr. Mckenna. ABDULKADIR RN Subjective Subjective On tele in SR. Sitter at bedside.No chest pain or SOB. Occasionally goes to ST [address] when excited. Objective Last 24 Hour Vital Signs Date Time Temp Pulse Resp B/P (MAP) Pulse Ox O2 Delivery O2 Flow Rate FiO2 06/21/17 08:00 110 06/21/17 08:00 97.9 110 20 108/70 98 Nasal Cannula 4.0 06/21/17 07:20 Nasal Cannula 06/21/17 07:20 Nasal Cannula 3.0 32 06/21/17 07:20 99 16 94 Nasal Cannula 3.0 32 06/21/17 07:20 94 Nasal Cannula 3.0 32 06/21/17 04:00 117 06/21/17 04:00 97.2 117 20 91/65 95 06/21/17 00:00 97.0 126 20 100/68 92 06/21/17 00:00 110 06/20/17 23:30 120 26 97 Facial 35 06/20/17 20:18 Nasal Cannula 2.0 28 06/20/17 20:00 97.2 114 18 94/67 100 06/20/17 20:00 113 06/20/17 20:00 111 20 92 Nasal Cannula 3.0 32 06/20/17 20:00 114 20 96 Nasal Cannula 3.0 32 06/20/17 19:30 92 Nasal Cannula 3.0 32 06/20/17 16:00 98.4 113 22 95/69 93 06/20/17 15:38 98 06/20/17 13:12 110 27 99 Nasal Cannula 3.0 06/20/17 13:02 100 24 94 Nasal Cannula 3.0 06/20/17 12:01 97.7 117 21 104/71 93 06/20/17 11:56 97 Intake and Output 06/20/17 06/21/17 19:00 07:00 Intake Total 755 ml Output Total 500 ml 2000 ml Balance 255 ml -2000 ml Intake Oral 120 ml IV Total 635 ml Output Urine Total 500 ml 2000 ml Objective HEAD AND NECK: Mild JVD. Right eye ecchymotic LUNGS: Decreased breath sounds. CARDIOVASCULAR: Tachycardic S1 and S2 with no gallop or murmur. ABDOMEN: Obese. EXTREMITIES: 2+ pitting edema. ASHOK ROSS Jun 21, 2017 11:21
[2017-06-21 12:00] VITALS: BP 108/71
[2017-06-21] MEDS: Azithromycin 500 MG in D5W 275 ML IV SCH (13:22)
--- NOTE | 2017-06-21 13:34 | Infectious Diseases Prog Note ---
Assessment/Plan Problems: (1) HCAP (healthcare-associated pneumonia) Assessment & Plan: with diffuse patchy infiltrates mainly on the left , on vancomycin and cefepime empiric coverage, continue zithromax for atypical organisms coverage for five days total , monitor CXR . continue current antibiotics, obtain sputum culture (2) Cellulitis and abscess of lower extremity Assessment & Plan: already on vancomycin and cefepime (3) Sepsis Assessment & Plan: less likely, with negative blood culture , already on vancomycin and cefepime , pending blood culture (4) Acute respiratory failure Assessment & Plan: suspect fluids overload on top , and pneumonia , now on BIPAP, for breathing support , will repeat CXR to confirm , and order troponin level , cardiology is following , recommend pulmonary consult . (5) COPD (chronic obstructive pulmonary disease) Assessment & Plan: with exacerbation due to the above , continue nebulizers and oxygen therapy Subjective Constitutional: Reports: no symptoms HEENT: Reports: congestion Respiratory: Reports: productive cough Breasts: Reports: no symptoms Cardiovascular: Reports: no symptoms Gastrointestinal/Abdominal: Reports: no symptoms Genitourinary: Reports: no symptoms Neurologic: Reports: weakness Psychiatric: Reports: no symptoms Skin: Reports: rash Endocrine: Reports: no symptoms Hematologic: Reports: no symptoms Musculoskeletal: Reports: no symptoms Allergies: Coded Allergies: Cultivated Oat Pollen (Verified Allergy, Unknown, 05/01/17) IODINE AND IODIDE CONTAINING PRODUC (Verified Allergy, Unknown, 05/01/17) PENICILLINS (Verified Allergy, Unknown, 05/02/17) Soy Protein (Verified Allergy, Unknown, 05/01/17) Subjective he was still confused, off BIPAP, not febrile, no cough or phlegm, mild SOB, sating well on nasal canula Objective Vital Signs Last 24 Hour Vital Signs Date Time Temp Pulse Resp B/P (MAP) Pulse Ox O2 Delivery O2 Flow Rate FiO2 06/21/17 08:00 110 06/21/17 08:00 97.9 110 20 108/70 98 Nasal Cannula 4.0 06/21/17 07:20 Nasal Cannula 06/21/17 07:20 Nasal Cannula 3.0 32 06/21/17 07:20 99 16 94 Nasal Cannula 3.0 32 06/21/17 07:20 94 Nasal Cannula 3.0 32 06/21/17 04:00 117 06/21/17 04:00 97.2 117 20 91/65 95 06/21/17 00:00 97.0 126 20 100/68 92 06/21/17 00:00 110 06/20/17 23:30 120 26 97 Facial 35 06/20/17 20:18 Nasal Cannula 2.0 28 06/20/17 20:00 97.2 114 18 94/67 100 06/20/17 20:00 113 06/20/17 20:00 111 20 92 Nasal Cannula 3.0 32 06/20/17 20:00 114 20 96 Nasal Cannula 3.0 32 06/20/17 19:30 92 Nasal Cannula 3.0 32 06/20/17 16:00 98.4 113 22 95/69 93 06/20/17 15:38 98 Height (Feet): 6 Height (Inches): 1.00 Weight (Pounds): 260 General Appearance: WD/WN, no acute distress HEENT: normocephalic, atraumatic, anicteric, mucous membranes moist, PERRL, EOMI, pharynx normal, supple, no JVD Respiratory/Chest: chest wall non-tender, lungs clear, normal breath sounds, no respiratory distress, no accessory muscle use, decreased breath sounds, crackles/rales Cardiovascular: normal peripheral pulses, normal rate, regular rhythm, no gallop/murmur, no JVD Abdomen: normal bowel sounds, soft, non tender, no organomegaly, non distended , no mass, no scars Extremities: no cyanosis, no clubbing Skin: no lesions, rash Neurologic/Psychiatric: alert, responsive Current Medications Medications (Trade) Dose Ordered Sig/Shine Route PRN Reason Start Time Stop Time Status Last Admin Dose Admin Acetaminophen (Tylenol) 650 mg Q4H PRN ORAL Mild Pain (Pain Scale 1-3) 06/17/17 09:00 07/15/17 08:59 Acetaminophen/ Hydrocodone Bitart ([place] 5/325) 1 tab Q4H PRN ORAL Moderate Pain (Pain Scale 4-6) 06/17/17 08:00 06/23/17 19:59 Cefepime HCl 2 gm/ Dextrose 110 ml @ 220 mls/hr EVERY 12 HOURS IVPB 06/18/17 21:00 06/25/17 20:59 06/21/17 08:40 Diphenhydramine HCl (Benadryl) 25 mg Q6H PRN ORAL Itching/Pruritis 06/17/17 09:00 07/15/17 14:59 Furosemide (Lasix) 40 mg EVERY 12 HOURS IV 06/17/17 14:00 07/17/17 13:59 06/21/17 08:40 Haloperidol Lactate (Haldol) 5 mg Q6H PRN IM Agitation 06/18/17 15:45 07/18/17 15:44 Heparin Sodium (Porcine) (Heparin 5000 units/ml) 5,000 units EVERY 12 HOURS SUBQ 06/17/17 09:30 07/16/17 09:29 06/21/17 08:42 Levalbuterol HCl (Xopenex) 1.25 mg TIDRT HHN 06/17/17 13:00 06/22/17 06:59 06/21/17 13:28 Lorazepam (Ativan) 1 mg Q4H PRN ORAL For Anxiety 06/17/17 09:00 06/22/17 08:59 Ondansetron HCl (Zofran) 4 mg Q6H PRN IVP Nausea & Vomiting 06/17/17 09:00 07/15/17 14:59 Pantoprazole (Protonix) 40 mg DAILY ORAL 06/17/17 09:30 07/17/17 09:29 06/21/17 08:40 Risperidone (RisperDAL) 2 mg QHS ORAL 06/18/17 21:00 07/18/17 20:59 06/20/17 21:43 Vancomycin HCl (Vanco rx to dose) 1 ea DAILY PRN MISC Per rx protocol 06/17/17 09:00 07/16/17 14:59 Vancomycin HCl/ Dextrose 250 ml @ 125 mls/hr Q8H IVPB 06/17/17 12:00 06/26/17 11:59 06/21/17 06:40 Zolpidem Tartrate (Ambien) 5 mg HSPRN PRN ORAL Insomnia 06/17/17 09:30 06/23/17 09:29 Gregg Mckenna M.D. Jun 21, 2017 13:34
[2017-06-21 16:00] VITALS: BP 107/70
--- NOTE | 2017-06-21 18:51 | Nephrology Progress Note ---
Assessment/Plan Problem List: (1) Dyspnea (2) Pneumonia (3) COPD (chronic obstructive pulmonary disease) (4) Acute respiratory failure (5) Sepsis (6) HTN (hypertension) (7) Cellulitis and abscess of lower extremity Plan Continue treatment plan O2 prn Continue Neb treatment BIPAP at night Abx per ID BLE ultrasound to r/o DVT Monitor lytes, correct prn DVT prophylaxis PPI DC to SNF Subjective Constitutional: Denies: no symptoms, chills, diaphoresis, fever, malaise, weakness, other HEENT: Denies: no symptoms, eye pain, blurred vision, tearing, double vision, ear pain, ear discharge, nose pain, nose congestion, throat pain, throat swelling, mouth pain, mouth swelling, other Genitourinary: Denies: no symptoms, burning, discharge, frequency, flank pain, hematuria, incontinence, pain, urgency, other Neurologic/Psychiatric: Denies: no symptoms, anxiety, depressed, emotional problems, headache, numbness, paresthesia, pre-existing deficit, seizure, tingling, tremors, weakness, other Subjective In bed, in no apparent distress Objective Objective Last 24 Hour Vital Signs Date Time Temp Pulse Resp B/P (MAP) Pulse Ox O2 Delivery O2 Flow Rate FiO2 06/21/17 16:00 115 06/21/17 16:00 97.2 98 20 107/70 95 Nasal Cannula 4.0 06/21/17 13:42 111 20 96 Nasal Cannula 3.0 32 06/21/17 13:30 117 18 94 Nasal Cannula 3.0 32 06/21/17 12:00 120 06/21/17 12:00 97.9 113 20 108/71 96 Nasal Cannula 4.0 06/21/17 08:00 110 06/21/17 08:00 97.9 110 20 108/70 98 Nasal Cannula 4.0 06/21/17 07:20 Nasal Cannula 06/21/17 07:20 Nasal Cannula 3.0 32 06/21/17 07:20 99 16 94 Nasal Cannula 3.0 32 06/21/17 07:20 94 Nasal Cannula 3.0 32 06/21/17 04:00 117 06/21/17 04:00 97.2 117 20 91/65 95 06/21/17 00:00 97.0 126 20 100/68 92 06/21/17 00:00 110 06/20/17 23:30 120 26 97 Facial 35 06/20/17 20:18 Nasal Cannula 2.0 28 06/20/17 20:00 97.2 114 18 94/67 100 06/20/17 20:00 113 06/20/17 20:00 111 20 92 Nasal Cannula 3.0 32 06/20/17 20:00 114 20 96 Nasal Cannula 3.0 32 06/20/17 19:30 92 Nasal Cannula 3.0 32 Intake and Output 06/20/17 06/21/17 19:00 07:00 Intake Total 755 ml Output Total 500 ml 2000 ml Balance 255 ml -2000 ml Intake Oral 120 ml IV Total 635 ml Output Urine Total 500 ml 2000 ml Height (Feet): 6 Height (Inches): 1.00 Weight (Pounds): 260 General Appearance: no apparent distress, alert EENT: normal ENT inspection Neck: normal alignment, supple Cardiovascular: normal rate, regular rhythm Respiratory/Chest: no respiratory distress Abdomen: soft Extremities: normal capillary refill Neurologic: alert, oriented x 3, responsive, normal mood/affect Lexus Lopez N.P. Jun 21, 2017 18:51
[2017-06-21 20:00] VITALS: BP 106/55
[2017-06-21] MEDS ORDERED: NS 275ml ONE (21:49)
--- NOTE | 2017-06-22 09:44 | General Progress Note ---
Assessment/Plan Problem List: (1) COPD (chronic obstructive pulmonary disease) ICD Codes: J44.9 - Chronic obstructive pulmonary disease, unspecified SNOMED: 78460484 (2) Acute respiratory failure ICD Codes: J96.00 - Acute respiratory failure, unspecified whether with hypoxia or hypercapnia SNOMED: 09263384 (3) Sepsis ICD Codes: A41.9 - Sepsis, unspecified organism SNOMED: 11926992 (4) HTN (hypertension) ICD Codes: I10 - Essential (primary) hypertension SNOMED: 70520524 (5) HCAP (healthcare-associated pneumonia) ICD Codes: J18.9 - Pneumonia, unspecified organism SNOMED: 153144130 (6) Cellulitis and abscess of lower extremity ICD Codes: L03.119 - Cellulitis of unspecified part of limb; L02.419 - Cutaneous abscess of limb, unspecified SNOMED: 485655737 (7) Dyspnea ICD Codes: R06.00 - Dyspnea, unspecified SNOMED: 070036418 Qualifiers: Qualified Codes: R06.00 - Dyspnea, unspecified (8) Pneumonia ICD Codes: J18.9 - Pneumonia, unspecified organism SNOMED: 506474786 Qualifiers: Qualified Codes: J18.9 - Pneumonia, unspecified organism Subjective Date patient seen: Jun 21, 2017 Neurologic/Psychiatric: Reports: anxiety, depressed, emotional problems Allergies: Coded Allergies: Cultivated Oat Pollen (Verified Allergy, Unknown, 05/01/17) IODINE AND IODIDE CONTAINING PRODUC (Verified Allergy, Unknown, 05/01/17) PENICILLINS (Verified Allergy, Unknown, 05/02/17) Soy Protein (Verified Allergy, Unknown, 05/01/17) Subjective the pt is improved Objective Last 24 Hour Vital Signs Date Time Temp Pulse Resp B/P (MAP) Pulse Ox O2 Delivery O2 Flow Rate FiO2 06/21/17 20:00 97.7 111 20 106/55 93 Nasal Cannula 4.0 06/21/17 19:36 118 20 95 Nasal Cannula 3.0 32 06/21/17 19:25 93 Nasal Cannula 3.0 32 06/21/17 19:25 115 18 93 Nasal Cannula 3.0 32 06/21/17 19:25 Nasal Cannula 3.0 32 06/21/17 16:00 115 06/21/17 16:00 97.2 98 20 107/70 95 Nasal Cannula 4.0 06/21/17 13:42 111 20 96 Nasal Cannula 3.0 32 06/21/17 13:30 117 18 94 Nasal Cannula 3.0 32 06/21/17 12:00 120 06/21/17 12:00 97.9 113 20 108/71 96 Nasal Cannula 4.0 Intake and Output 06/21/17 06/22/17 19:00 07:00 Intake Total 832 ml Output Total 1500 ml Balance -668 ml Intake Oral 360 ml IV Total 472 ml Output Urine Total 1500 ml Height (Feet): 6 Height (Inches): 1.00 Weight (Pounds): 260 General Appearance: no apparent distress, alert, agitated Neurologic: depressed affect Myrna Paige M.D. Jun 22, 2017 09:44
--- NOTE | 2017-06-23 17:16 | Discharge Summary ---
Discharge Summary Hospital Course Date of Admission Jun 14, 2017 at 21:52 Date of Discharge Jun 21, 2017 at 21:50 Admitting Diagnosis SHORTNESS OF BREATH HPI Dwightgerardo Barreto is a 67 year old male who was admitted on Jun 14, 2017 at 21:52 for Shortness Of Breath Hospital Course [id number] Discharge Discharge Disposition Patient was discharged to SNF/Subacute Facility(03) Discharge Diagnoses: Alessandra Arce NP Jun 23, 2017 17:16
--- NOTE | 2017-06-24 01:15 | Discharge Summary 2 SIG ---
DATE OF ADMISSION: 06/14/2017 DATE OF DISCHARGE: 06/21/2017 CONSULTANTS: 1. Gregg Mckenna M.D. 2. Poncho Brower M.D. 3. Osmel Barnes M.D. 4. Myrna Paige M.D. BRIEF HOSPITAL COURSE: The patient is a 67-year-old male with history of hypertension, congestive heart failure, and chronic obstructive pulmonary disease, presented to ED by EMS for complaints of shortness of breath for two months. Apparently, he was recently seen at an outside hospital ED where he was going to be admitted for pneumonia, however, he left AMA. He then presented to [facility] where on evaluation at ED, chest x-ray showed pulmonary edema versus pneumonia. There was leukocytosis with left shift. He was admitted to telemetry and was started empirically on azithromycin. He was followed by Infectious Diseases specialist. Cefepime and vancomycin was added. He was given nebulizer treatment and oxygen therapy. He continued to have respiratory distress and was placed on BiPAP. He was eventually tapered to BiPAP at bedtime. He came in with tachycardia. There was no atrial fibrillation or SVT seen. He was given Lasix 40 mg intravenous push b.i.d. Previous echocardiogram showed normal function. He had a venous duplex of lower extremity that was negative for DVT bilaterally. He had cellulitis of lower extremity and abscess of lower extremity. Blood culture did not isolate any growth. Influenza A and B were negative. Repeat chest x-ray showed improvement with decrease in pulmonary edema/pneumonia. He was given PT and OT. He had episodes of agitation and was provided a sitter. He was placed on Risperdal 2 mg at bedtime. He was eventually discharged to SNF. FINAL DIAGNOSES: 1. Healthcare-associated pneumonia. 2. Cellulitis and abscess of lower extremity. 3. Acute respiratory failure requiring BiPAP. 4. Acute diastolic congestive heart failure. 5. Acute chronic obstructive pulmonary disease exacerbation. 6. Sepsis, less likely. 7. Dyspnea. 8. Sinus tachycardia. 9. Complete left bundle-branch block without syncope. DISPOSITION: The patient was discharged to [facility]. Willian Heck M.D. I have been assigned to dictate discharge summary on this account and I was not involved in the patient's management. Alessandra Arce N.P. DR: CANDIDO JOB#: [id number] CC: ROCÍO
--- NOTE | 2017-06-28 17:39 | Cardiology Report ---
APPROVED REPORT EKG Measurement Heart [id number] Sinus tachycardia with occasional premature ventricular complexes Left axis deviation Left bundle branch block Abnormal ECG
== END 2017-06-21 21:50 | DRG 871 ==
LOC: EMR 21:49 → 2E 21:52 → EDBEDREQ 22:06 → 3E 06-16 14:09 → 2E 06-17 07:54
DX: A41.9 Sepsis, unspecified organism (principal); J18.9 Pneumonia, unspecified organism; J96.00 Acute respiratory failure, unspecified whether with hypoxia or hypercapnia; I50.31 Acute diastolic (congestive) heart failure; I25.10 Atherosclerotic heart disease of native coronary artery without angina pectoris; B35.1 Tinea unguium; J44.0 Chronic obstructive pulmonary disease with (acute) lower respiratory infection; J44.1 Chronic obstructive pulmonary disease with (acute) exacerbation; L03.116 Cellulitis of left lower limb; L03.115 Cellulitis of right lower limb; F03.90 Unspecified dementia, unspecified severity, without behavioral disturbance, psychotic disturbance, mood disturbance, and anxiety; I44.7 Left bundle-branch block, unspecified
CPT/HCPCS: 36415; 36600; 71045; 80048; 80053; 80202; 82248; 82803; 83605; 84484; 85007; 85025; 86710; 87040; 87081; 93005; 93970; 94640; 94660; 94664; 94760; 99285; J7620; J8499